=== PATIENT | male | born 1970 | race Caucasian/White ===

== ENCOUNTER 2020-12-25 22:23 | Emergency (ER) | payer OTHER, SELFPAY | END 2020-12-25 23:17 | disposition left against medical advice (07) | PROVIDERS: Emergency Provider Emergency Medicine; PCP Internal Medicine | DX: L03.039 Cellulitis of unspecified toe (principal) ==

== ENCOUNTER 2022-02-08 14:34 | Outpatient (REF) | payer OTHER, SELFPAY ==
--- NOTE | ~2022-02-08 | XR_ITS ---
EXAMINATION: XR CHEST CLINICAL INFORMATION: Cough COMPARISON: Chest CT from 05/10/2020 TECHNIQUE: 2 views of the chest were obtained. FINDINGS: The lungs are well expanded. No dense consolidation. Mild bronchial wall thickening, particularly at the left base. No edema or effusion. No pneumothorax. The cardiomediastinal silhouette is within normal limits. XR/XR chest 2V IMPRESSION: No consolidation. Bronchial wall thickening can be seen with a small airways process such as asthma or atypical/viral infection. In conjunction with the appearance on prior, this could be chronic airways disease.
[2022-02-08 14:53] LABS: MANUAL DIFF FLAG NO
[2022-02-08 15:48] LABS: Basophils Absolute Auto 0.1 X10*3/uL (0.0-0.2); Basophils Percent Auto 0.9 % (0-2); Eosinophils Absolute Auto 0.7 X10*3/uL (0.0-0.4); Eosinophils Percent Auto 9.4 % (0-4); Hematocrit 37.9 % (42.0-52.0); Hemoglobin 12.3 g/dl (14.0-18.0); Imm Gran Abs Auto 0.02 X10*3/uL (0.00-0.03); Imm Gran Pct Auto 0.3 % (0.0-0.4); Lymphocytes Absolute Auto 1.2 X10*3/uL (1.2-4.9); Lymphocytes Percent Auto 17.1 % (20-40); Mean Corpuscular HGB Conc 32.5 g/dl (31.0-36.0); Mean Corpuscular Hemoglobin 28.5 pg (27.0-33.0); Mean Corpuscular Volume 87.9 fL (80.0-98.0); Mean Platelet Volume 11.3 fL (9.4-12.4); Monocytes Absolute Auto 0.6 X10*3/uL (0.1-1.2); Monocytes Percent Auto 8.8 % (2-11); Neutrophils Absolute Auto 4.4 x10*3/uL (2.0-8.3); Neutrophils Percent Auto 63.5 % (45-73); Platelet Count 220 X10*3/uL (160-400); Red Blood Count 4.31 X10*6/uL (4.60-5.80); Red Cell Distribution Width 12.8 % (11.0-16.0); White Blood Count 6.9 X10*3/uL (4.8-10.8)
[2022-02-08 16:07] LABS: Alanine Aminotransferase 29 U/L (0-40); Albumin Level 3.9 g/dL (3.5-5.0); Alkaline Phosphatase 81 U/L (39-117); Anion Gap 15 (12-20); Aspartate Amino Transferase 44 U/L (5-37); Bilirubin Total 0.4 mg/dL (0.0-1.0); Blood Urea Nitrogen 7 mg/dL (9-16); Calcium 8.9 mg/dL (8.4-10.2); Carbon Dioxide 28 mmol/L (22-29); Chloride 95 mmol/L (96-108); Cholesterol 181 mg/dL; Estimated Glomerular Filt Rate > 60; Glucose Fasting 110 mg/dL (60-99); HDL Cholesterol 37 mg/dL; LDL Cholesterol Calculated 79 mg/dl; Potassium 3.3 mmol/L (3.3-5.1); Sodium 135 mmol/L (135-145); Total Protein 7.1 g/dL (6.5-8.0); Triglycerides 329 mg/dL
[2022-02-08 16:31] LABS: Thyroid Stimulating Hormone 12.95 uIU/mL (0.32-4.0)
== END 2022-02-08 14:35 | disposition home or self-care (01) ==
LOC: HO.XRAY 14:34
PROVIDERS: PCP Internal Medicine; Visit Provider Internal Medicine
DX: Z00.00 Encounter for general adult medical examination without abnormal findings (principal); R05.9 Cough, unspecified; E03.9 Hypothyroidism, unspecified; E11.9 Type 2 diabetes mellitus without complications
CPT/HCPCS: 36415; 71046; 80053; 80061; 84443; 85025

== ENCOUNTER 2022-12-31 15:29 | Outpatient (REF) | payer OTHER, SELFPAY ==
[2022-12-31 15:52] LABS: MANUAL DIFF FLAG NO
[2022-12-31 17:00] LABS: Basophils Absolute Auto 0.1 X10*3/uL (0.0-0.2); Basophils Percent Auto 0.5 % (0-2); Eosinophils Absolute Auto 0.3 X10*3/uL (0.0-0.4); Eosinophils Percent Auto 2.1 % (0-4); Hematocrit 44.1 % (42.0-52.0); Hemoglobin 15.1 g/dl (14.0-18.0); Imm Gran Abs Auto 0.04 X10*3/uL (0.00-0.03); Imm Gran Pct Auto 0.3 % (0.0-0.4); Lymphocytes Absolute Auto 1.6 X10*3/uL (1.2-4.9); Lymphocytes Percent Auto 13.5 % (20-40); Mean Corpuscular HGB Conc 34.2 g/dl (31.0-36.0); Mean Corpuscular Hemoglobin 29.1 pg (27.0-33.0); Mean Platelet Volume 11.7 fL (9.4-12.4); Monocytes Absolute Auto 1.1 X10*3/uL (0.1-1.2); Neutrophils Absolute Auto 8.8 x10*3/uL (2.0-8.3); Neutrophils Percent Auto 74.6 % (45-73); Platelet Count 320 X10*3/uL (160-400); Red Blood Count 5.19 X10*6/uL (4.60-5.80); Red Cell Distribution Width 12.5 % (11.0-16.0); White Blood Count 11.8 X10*3/uL (4.8-10.8)
[2022-12-31 17:39] LABS: Alanine Aminotransferase 37 U/L (0-40); Albumin Level 4.2 g/dL (3.5-5.0); Alkaline Phosphatase 80 U/L (39-117); Anion Gap 17 (12-20); Aspartate Amino Transferase 39 U/L (5-37); Bilirubin Total 0.6 mg/dL (0.0-1.0); Blood Urea Nitrogen 8 mg/dL (9-16); Calcium 9.2 mg/dL (8.4-10.2); Carbon Dioxide 23 mmol/L (22-29); Chloride 91 mmol/L (96-108); Cholesterol 219 mg/dL; Estimated Glomerular Filt Rate > 60; Glucose Fasting 117 mg/dL (60-99); HDL Cholesterol 44 mg/dL; LDL Cholesterol Calculated 139 mg/dl; Potassium 3.1 mmol/L (3.3-5.1); Sodium 128 mmol/L (135-145); Total Protein 7.5 g/dL (6.5-8.0); Triglycerides 180 mg/dL
[2022-12-31 17:48] LABS: Prostate Specific Antigen Scr 0.53 ng/mL (<0.05-4.0); Thyroid Stimulating Hormone 4.77 uIU/mL (0.32-4.0)
== END 2022-12-31 15:30 | disposition home or self-care (01) ==
LOC: HO.LAB 15:29
PROVIDERS: PCP Internal Medicine; Visit Provider Internal Medicine
DX: Z00.00 Encounter for general adult medical examination without abnormal findings (principal); E03.9 Hypothyroidism, unspecified; D64.9 Anemia, unspecified; E78.5 Hyperlipidemia, unspecified; N28.9 Disorder of kidney and ureter, unspecified
CPT/HCPCS: 36415; 80053; 80061; 84153; 84443; 85025

== ENCOUNTER 2023-01-10 23:42 | Emergency (ER) | payer OTHER, SELFPAY ==
--- NOTE | ~2023-01-10 | CT_ITS ---
EXAMINATION: CT HEAD WITHOUT CONTRAST CLINICAL INFORMATION: Frequent falls with head trauma COMPARISON: 05/10/2020 TECHNIQUE: Contiguous axial imaging was performed from the skull base to vertex without intravenous administration of contrast. This CT examination was performed using dose optimization techniques as appropriate, variously including the following: *Automated exposure control *Adjustment of mA and/or kV according to patient size (this includes techniques or standardized protocols for targeted exams where dose is matched to indication/reason for exam; i.e. extremities or head) *Use of iterative reconstruction technique DLP: 661 mGy-cm FINDINGS: There is no evidence of acute intracranial hemorrhage or territorial infarction. No abnormal mass-effect or midline shift is seen. Jay to white matter differentiation is well preserved. No extra-axial fluid collections are identified. The ventricles are normal in size. Mild volume loss is noted. The osseous structures and soft tissues are normal. The mastoid air cells and visualized portions of the paranasal sinuses are well-aerated. CT/CT head/brain wo IV con IMPRESSION: No acute intracranial pathology.
--- NOTE | ~2023-01-10 | XR_ITS ---
EXAMINATION: XR FOOT, LEFT CLINICAL INFORMATION: Left foot pain COMPARISON: None available. TECHNIQUE: AP, lateral, and oblique views of the left foot. FINDINGS: Osseous alignment is anatomic. No acute fracture is seen. Mild joint space narrowing at the first MTP joint. No significant focal soft tissue abnormality identified. XR/XR foot LT min 3V IMPRESSION: No acute findings identified.
--- NOTE | ~2023-01-10 | CT_ITS ---
CT/CT abdomen pelvis w IV con IMPRESSION: No acute findings identified in the abdomen/pelvis. EXAMINATION: CT ABDOMEN AND PELVIS WITH CONTRAST CLINICAL INFORMATION: Acute on chronic abdomen pain COMPARISON: 05/10/2020 TECHNIQUE: Multidetector volumetric images were obtained from the superior aspect of the liver through the pubic symphysis following administration 85 mL of Omnipaque 350 intravenous contrast. Sagittal and coronal reformatted images were obtained on the technologist's workstation. Oral contrast: No This CT examination was performed using dose optimization techniques as appropriate, variously including the following: *Automated exposure control *Adjustment of mA and/or kV according to patient size (this includes techniques or standardized protocols for targeted exams where dose is matched to indication/reason for exam; i.e. extremities or head) *Use of iterative reconstruction technique DLP: 921 mGy-cm FINDINGS: LUNG BASES: The visualized lung bases are unremarkable. LIVER, GALLBLADDER, AND BILIARY TREE: The liver is normal in size, shape, and attenuation. No focal hepatic lesion or biliary ductal dilatation is present. Gallbladder appears somewhat contracted. PANCREAS: Unremarkable. SPLEEN: Unremarkable. ADRENAL GLANDS: Unremarkable. KIDNEYS AND URETERS: Bilateral nephrograms are symmetric. No hydronephrosis or obstructing calculus identified. Subcentimeter cyst suspected in the lower left kidney; no follow-up recommended. BLADDER: Unremarkable. GASTROINTESTINAL TRACT: No evidence of bowel obstruction or significant wall thickening. The appendix is unremarkable. No free fluid or free air is seen. ABDOMINAL WALL: Fat-containing inguinal hernias, left larger than right. LYMPH NODES: Normal. VASCULAR: There is atherosclerotic calcification along the aorta. PELVIC VISCERA: Unremarkable. OSSEOUS STRUCTURES: Unremarkable.
--- NOTE | ~2023-01-10 | XR_ITS ---
EXAMINATION: XR CHEST CLINICAL INFORMATION: Left-sided chest pain COMPARISON: 02/08/2022 TECHNIQUE: 2 views of the chest were obtained. FINDINGS: Lung volumes are symmetric. No focal consolidation is seen. No evidence of pneumothorax, pleural effusion, or pulmonary edema. The cardiomediastinal contour is unremarkable. No acute osseous findings are seen. XR/XR chest 2V IMPRESSION: No acute cardiopulmonary findings.
[2023-01-10 23:46] VITALS: BP 135/79; PULSE 121; RESP 20; TEMP 36.3; O2SAT 98; BMI 37.9
--- NOTE | 2023-01-11 00:06 | ECG_ITS ---
Test Reason : PALPITATIONS Blood Pressure : / mmHG Vent. Rate : 098 BPM Atrial Rate : 098 BPM P-R Int : 160 ms QRS Dur : 108 ms QT Int : 390 ms P-R-T Axes : 063 042 035 degrees QTc Int : 497 ms Normal sinus rhythm Possible Left atrial enlargement ST & T wave abnormality, consider anterior ischemia Prolonged QT Abnormal ECG When compared with ECG of 09-MAY-2020 22:11, T wave inversion now evident in Anterior leads Referred By: Generic ED Physician Electronically Signed By:DI FOURNIER MD
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
[2023-01-11] MEDS: 0.9 % Sodium Chloride 1,000 ML 999 ML IV (01:10)
--- NOTE | 2023-01-11 01:20 | PC.NURSE ---
justice BOGGS per MAR collected labs with straight needle, labeled and sent to lab via tube system
[2023-01-11 01:23] LABS: MANUAL DIFF FLAG NO
[2023-01-11 01:25] LABS: Basophils Percent Auto 0.4 % (0-2); Eosinophils Absolute Auto 0.1 X10*3/uL (0.0-0.4); Eosinophils Percent Auto 0.9 % (0-4); Hematocrit 42.7 % (42.0-52.0); Hemoglobin 14.3 g/dl (14.0-18.0); Imm Gran Abs Auto 0.02 X10*3/uL (0.00-0.03); Imm Gran Pct Auto 0.2 % (0.0-0.4); Lymphocytes Absolute Auto 1.3 X10*3/uL (1.2-4.9); Lymphocytes Percent Auto 15.2 % (20-40); Mean Corpuscular HGB Conc 33.5 g/dl (31.0-36.0); Mean Corpuscular Hemoglobin 29.2 pg (27.0-33.0); Mean Corpuscular Volume 87.3 fL (80.0-98.0); Mean Platelet Volume 10.9 fL (9.4-12.4); Monocytes Absolute Auto 0.7 X10*3/uL (0.1-1.2); Neutrophils Absolute Auto 6.2 x10*3/uL (2.0-8.3); Neutrophils Percent Auto 75.3 % (45-73); Platelet Count 244 X10*3/uL (160-400); Red Blood Count 4.89 X10*6/uL (4.60-5.80); Red Cell Distribution Width 12.5 % (11.0-16.0); White Blood Count 8.2 X10*3/uL (4.8-10.8)
[2023-01-11 01:38] LABS: Anion Gap 14 (12-20); Blood Urea Nitrogen 11 mg/dL (9-16); Calcium 8.8 mg/dL (8.4-10.2); Carbon Dioxide 27 mmol/L (22-29); Chloride 98 mmol/L (96-108); Creatinine Clr Calc Pharmacy 122.4; Estimated Glomerular Filt Rate > 60; Glucose Random 95 mg/dL (60-115); Potassium 3.2 mmol/L (3.3-5.1); Sodium 136 mmol/L (135-145)
[2023-01-11 01:44] LABS: Troponin-I High Sensitivity 8.7 ng/L (<3.5-35.0)
[2023-01-11 02:00] LABS: TSH reflex Free T4 4.71 uIU/mL (0.32-4.0)
[2023-01-11 02:03] LABS: Alanine Aminotransferase 21 U/L (0-40); Albumin Level 3.8 g/dL (3.5-5.0); Alkaline Phosphatase 68 U/L (39-117); Aspartate Amino Transferase 19 U/L (5-37); Bilirubin Direct 0.2 mg/dL (0.0-0.5); Bilirubin Total 0.6 mg/dL (0.0-1.0); Magnesium 1.4 mg/dL (1.6-2.6); Phosphorus 2.3 mg/dL (2.7-4.5); Total Protein 6.6 g/dL (6.5-8.0)
[2023-01-11] MEDS: iohexoL 350 MG/ML 100 ML INFUS..BTL 85 ML IV (02:16)
[2023-01-11] MEDS: Magnesium Sulfate/D5W 1 GM/100 ML PIGGYBACK IV (02:33)
[2023-01-11] MEDS: Potassium Chloride Packet 20 MEQ PACKET 40 MEQ PO (02:34)
--- NOTE | 2023-01-11 04:12 | ECG_ITS ---
Test Reason : ARRHYTMIA Blood Pressure : / mmHG Vent. Rate : 099 BPM Atrial Rate : 099 BPM P-R Int : 162 ms QRS Dur : 088 ms QT Int : 382 ms P-R-T Axes : 063 034 017 degrees QTc Int : 490 ms Normal sinus rhythm Possible Left atrial enlargement Nonspecific ST and T wave abnormality Prolonged QT Abnormal ECG When compared with ECG of 11-JAN-2023 00:23, No significant change was found Referred By: Antoine Novoa Electronically Signed By:DI FOURNIER MD
[2023-01-11 04:24] VITALS: BP 144/82; PULSE 98; RESP 12; TEMP 36.9; O2SAT 95
[2023-01-11 05:22] LABS: Troponin-I High Sensitivity 9.2 ng/L (<3.5-35.0)
== END 2023-01-11 06:14 | disposition home or self-care (01) ==
PROVIDERS: Emergency Medicine; Emergency Provider Emergency Medicine Emergency Medical Services
DX: R53.1 Weakness (principal); R29.6 Repeated falls; E86.0 Dehydration; E83.42 Hypomagnesemia; E87.6 Hypokalemia; M79.672 Pain in left foot; R26.89 Other abnormalities of gait and mobility; R10.9 Unspecified abdominal pain; I10 Essential (primary) hypertension; F10.20 Alcohol dependence, uncomplicated; E66.9 Obesity, unspecified; Z68.37 Body mass index [BMI] 37.0-37.9, adult; Z79.899 Other long term (current) drug therapy; Z79.02 Long term (current) use of antithrombotics/antiplatelets
CPT/HCPCS: 36415; 70450; 71046; 73630; 74177; 80048; 80076; 83735; 84100; 84439; 84443; 84484; 85025; 93005; 96361; 96365; 99284; 99285; J3475; Q9967

== ENCOUNTER 2023-01-15 14:18 | Outpatient (REF) | payer OTHER, SELFPAY ==
[2023-01-15 16:22] LABS: Anion Gap 12 (12-20); Blood Urea Nitrogen 10 mg/dL (9-16); Calcium 9.2 mg/dL (8.4-10.2); Carbon Dioxide 25 mmol/L (22-29); Chloride 102 mmol/L (96-108); Estimated Glomerular Filt Rate > 60; Glucose Random 93 mg/dL (60-115); Magnesium 1.7 mg/dL (1.6-2.6); Potassium 4.3 mmol/L (3.3-5.1); Sodium 135 mmol/L (135-145)
[2023-01-15 16:34] LABS: Thyroid Stimulating Hormone 3.26 uIU/mL (0.32-4.0)
== END 2023-01-15 14:19 | disposition home or self-care (01) ==
LOC: HO.LAB 14:18
PROVIDERS: PCP Internal Medicine; Visit Provider Internal Medicine
DX: I10 Essential (primary) hypertension (principal); E03.9 Hypothyroidism, unspecified
CPT/HCPCS: 36415; 80048; 83735; 84443

== ENCOUNTER 2023-01-25 23:41 | Emergency (ER) | payer OTHER, SELFPAY ==
--- NOTE | 2023-01-25 | ECG_ITS ---
Test Reason : CHEST PAIN Blood Pressure : / mmHG Vent. Rate : 102 BPM Atrial Rate : 102 BPM P-R Int : 140 ms QRS Dur : 100 ms QT Int : 366 ms P-R-T Axes : 048 022 004 degrees QTc Int : [address] & T wave abnormality, consider anterior ischemia Abnormal ECG When compared with ECG of 11-JAN-2023 04:17, No significant change was found Referred By: Generic ED Physician Electronically Signed By:Skinny Santiago
--- NOTE | ~2023-01-25 | XR_ITS ---
EXAMINATION: XR CHEST CLINICAL INFORMATION: Chest pain COMPARISON: Multiple priors with last chest x-ray of 01/11/2023 TECHNIQUE: 2 views of the chest were obtained. FINDINGS: Cardiomediastinal silhouette is normal. No abnormal tracheal deviation. The lungs are symmetrically well expanded. No focal consolidation, changes of congestion or pleural effusions. No pneumothorax. Regional skeleton is intact. Visualized upper abdomen is unremarkable. XR/XR chest 2V IMPRESSION: No radiographic evidence of hernia. No acute pulmonary process.
[2023-01-25 23:42] VITALS: BP 145/83; PULSE 108; RESP 20; TEMP 36.3; O2SAT 97; BMI 35.7
[2023-01-26 00:03] LABS: MANUAL DIFF FLAG NO
[2023-01-26 00:04] LABS: Basophils Absolute Auto 0.1 X10*3/uL (0.0-0.2); Basophils Percent Auto 0.5 % (0-2); Eosinophils Absolute Auto 0.1 X10*3/uL (0.0-0.4); Eosinophils Percent Auto 1.2 % (0-4); Hematocrit 41.9 % (42.0-52.0); Hemoglobin 14.1 g/dl (14.0-18.0); Imm Gran Abs Auto 0.03 X10*3/uL (0.00-0.03); Imm Gran Pct Auto 0.3 % (0.0-0.4); Lymphocytes Percent Auto 18.7 % (20-40); Mean Corpuscular HGB Conc 33.7 g/dl (31.0-36.0); Mean Corpuscular Hemoglobin 28.7 pg (27.0-33.0); Mean Corpuscular Volume 85.2 fL (80.0-98.0); Mean Platelet Volume 11.9 fL (9.4-12.4); Monocytes Absolute Auto 0.9 X10*3/uL (0.1-1.2); Monocytes Percent Auto 8.6 % (2-11); Neutrophils Absolute Auto 7.4 x10*3/uL (2.0-8.3); Neutrophils Percent Auto 70.7 % (45-73); Platelet Count 287 X10*3/uL (160-400); Red Blood Count 4.92 X10*6/uL (4.60-5.80); Red Cell Distribution Width 13.2 % (11.0-16.0); White Blood Count 10.4 X10*3/uL (4.8-10.8)
--- NOTE | 2023-01-26 00:16 | ED.CHESTPAIN ---
HPI - Chest Pain General Chief Complaint: Chest Pain Stated Complaint: CP Time Seen by Provider: 01/26/23 00:02 Source: patient Mode of arrival: ambulatory Limitations: no limitations History of Present Illness HPI narrative: Patient comes to the emergency room complaining of chest pain. Patient states that approximately 2 hours ago, patient started having chest discomfort. Patient describes the pain as hit the left side of his chest cramping. Patient states that he also felt shooting pain going from his neck down to his arm. Patient states that this time he has no chest pain or arm pain. The discomfort lasted for about 10 minutes and self-resolved. Patient denies any shortness of breath, no chest pain at this time, no abdominal pain. Related Data Previous Rx's Medication Instructions Recorded fluticasone propionate 50 1 spray intranasal DAILY #9.9 mL 01/31/22 mcg/actuation nasal spray,suspension chlorthalidone 25 mg tablet 25 mg PO DAILY #90 tabs 04/01/22 fluoxetine 40 mg capsule 40 mg PO QAM #90 caps 04/01/22 allopurinol 300 mg tablet 300 mg PO DAILY #90 tabs 06/14/22 fenofibrate 160 mg tablet 160 mg PO DAILY #90 tabs 06/14/22 simvastatin 40 mg tablet 40 mg PO DAILY #90 tabs 06/14/22 metoprolol tartrate 50 mg tablet 50 mg PO BID #60 tabs 09/17/22 clonazepam 1 mg tablet 1 mg PO TID 30 days #90 tabs 09/24/22 ibuprofen 800 mg tablet 800 mg PO TID #90 tabs 09/24/22 quetiapine 100 mg tablet 100 mg PO BEDTIME #90 tabs 10/11/22 levothyroxine 125 mcg tablet 125 mcg PO DAILY #90 tabs 10/17/22 multivitamin 1 tab PO DAILY #30 tabs 01/11/23 ondansetron 4 mg disintegrating 4 mg PO Q6-8H PRN nausea and 01/11/23 tablet vomiting #14 tabs potassium chloride 20 mEq 10 meq PO DAILY #10 tabs 01/11/23 tablet,extended release(part/cryst) thiamine HCl (vitamin B1) 500 mg 500 mg PO DAILY #30 tabs 01/11/23 tablet albuterol sulfate 90 mcg/actuation 2 puff PO Q4-6H PRN for muscle 01/15/23 aerosol inhaler (Ventolin HFA) spasm #18 ea tiotropium bromide 2.5 2 puff inhalation DAILY #4 grams 01/15/23 mcg/actuation mist for inhalation (Spiriva Respimat) omeprazole 20 mg capsule,delayed 20 mg PO DAILY #90 caps 01/17/23 release sennosides 8.6 mg tablet (senna) 17.2 mg PO BEDTIME #90 tabs 01/17/23 trazodone 100 mg tablet 100 mg PO BEDTIME PRN sleep #30 01/17/23 tabs Allergies Allergy/AdvReac Type Severity Reaction Status Date / Time Fruit skins Allergy Unknown Unknown Uncoded 01/25/23 23:42 Review of Systems Review of Systems: Constitutional : No Weight loss, No Fever, No Chills, No Night Sweats, No Fatigue, No Malaise ENT/Mouth : No Hearing loss, No Ear Pain, No Nasal Congestion, No Sinus Pain, No Hoarseness, No sore throat, No Rhinorrhea, No Swallowing Difficulty Eyes: No Eye Pain, No Swelling, No Redness, No Foreign Body, No Discharge, No Vision Changes Cardiovascular : Complaining of ?chest cramping? that self-resolved, No SOB, No Dyspnea on Exertion, No Orthopnea, No Edema, No Palpitations Respiratory : No Cough, No Sputum, No Wheezing, No Smoke Exposure, No Dyspnea Gastrointestinal : No Nausea, No Vomiting, No Diarrhea, No Constipation, No abdominal Pain, No Hematochezia, No Melena Genitourinary : no irregular bleeding, No Dysuria, No Urinary Frequency, No Hematuria, No Urinary Incontinence, No Urgency, No Flank Pain, No Urinary Flow Changes, No Hesitancy Musculoskeletal : No joint pain, No Myalgias, No Joint Swelling Skin : No Skin Lesions, No rash Neuro : No Weakness, No Numbness, No Paresthesias, No Loss of Consciousness, No Dizziness, No Headache Psych : No Anxiety/Panic, No Depression, No SI/HI/AH/VH, No Social Issues, Heme/Lymph: No Bruising, No Bleeding,No Lymphadenopathy Endocrine : No Polyuria, No Polydipsia, No Temperature Intolerance PMF Past Medical History Medical History Hypertension Obesity Surgical History No pertinent past surgical history Family History Family History Father No problems noted. Mother No problems noted. Social History Social History Housing: House Alcohol intake: former Patient Tobacco Use Status: Never used Tobacco Smoked in Last 30 Days: No e-Cigarette/Vaping Use: Never Used Second Hand Smoke Exposure: No Use of substances other than those prescribed or required for medical reasons: No Advance Directives: No Advance Directives Information Provided: No service: No Current occupational status: employed Current occupational exposures/hazards: No Cognitive needs: No Hearing needs: No Vision needs: No Physical Exam Vital Signs: Vital Signs: Last Vital Signs Temp 97.4 F 01/25/23 23:42 Pulse 92 01/26/23 00:17 Resp 19 01/26/23 00:17 BP 135/100 H 01/26/23 00:17 Pulse Ox 96 01/26/23 00:17 O2 Del Method Room Air 01/26/23 00:17 BMI result Body Mass Index 35.7 Const: Other: Appearance: Alert. Oriented X3. No acute distress. Eyes: Pupils equal, round and reactive to light. ENT: Pharynx normal. Neck: Normal inspection. Neck supple. No lymph nodes noted. No crepitus CVS: Normal heart rate and rhythm. Pulses normal. Normal S1 and S2 Respiratory: No respiratory distress. Breath sounds normal. No Wheezing. No rales Abdomen: Soft and nontender. No rigidity. No distention. Skin: Skin warm and dry. Normal skin color. Normal skin turgor. 1 cm laceration to the dorsal aspect of the thumb that occurred earlier today accidentally Extremities: Trace pitting edema bilaterally, chronic venous stasis,. No Lacerations. No Rash Neuro: Oriented X 3. No motor deficit. No sensory deficit. Moving all extremities. No slurred speech. CN 2 through 12 grossly intact Psych: calm, cooperative, normal affect Course Course Course Narrative: -patient declines stitches for the laceration that he had earlier today -of patient's labs pending -patient aware that we will repeat troponin in 3 hours Medical Decision Making Medical Decision Making MDM Narrative: -interpretation of EKG: Sinus rhythm, tachycardia, heart rate 102, no ST segment depression or elevation, nonspecific T-wave inversion in V2 V3, old, same in EKG from 01/11/2023, QTC 477 -troponin 1 and 2 are both negative. -patient remains asymptomatic. Lab Data 01/25/23 23:56 01/25/23 23:56 Labs: Lab Results 01/25/23 01/25/23 01/25/23 Range/Units 23:56 23:56 23:56 WBC 10.4 (4.8-10.8) X10*3/uL RBC 4.92 (4.60-5.80) X10*6/uL Hgb 14.1 (14.0-18.0) g/dl Hct 41.9 L (42.0-52.0) % MCV 85.2 (80.0-98.0) fL MCH 28.7 (27.0-33.0) pg MCHC 33.7 (31.0-36.0) g/dl RDW 13.2 (11.0-16.0) % Plt Count 287 (160-400) X10*3/uL MPV 11.9 (9.4-12.4) fL Immature Gran % (Auto) 0.3 (0.0-0.4) % Neut % (Auto) 70.7 (45-73) % Lymph % (Auto) 18.7 L (20-40) % [place] % (Auto) 8.6 (2-11) % Eos % (Auto) 1.2 (0-4) % Baso % (Auto) 0.5 (0-2) % Lymph # (Auto) 2.0 (1.2-4.9) X10*3/uL [place] # (Auto) 0.9 (0.1-1.2) X10*3/uL Eos # (Auto) 0.1 (0.0-0.4) X10*3/uL Baso # (Auto) 0.1 (0.0-0.2) X10*3/uL Abs Immat Gran (auto) 0.03 (0.00-0.03) X10*3/uL Absolute Neuts (auto) 7.4 (2.0-8.3) x10*3/uL Absolute Nucleated RBC 0.000 (0.0-0.012) X10*3/uL Nucleated RBC % (auto) 0.0 (0.0-0.2) /100WBC Sodium 135 (135-145) mmol/L Potassium 3.3 D (3.3-5.1) mmol/L Chloride 100 (96-108) mmol/L Carbon Dioxide 22 (22-29) mmol/L Anion Gap 16 (12-20) BUN 16 (9-16) mg/dL Creatinine 0.84 (0.5-1.4) mg/dL Estim Creat Clear Calc 123.1 Estimated GFR > 60 Random Glucose 102 (60-115) mg/dL Calcium 9.6 (8.4-10.2) mg/dL Magnesium 1.6 (1.6-2.6) mg/dL Troponin I High Sens < 2.7 D (<3.5-35.0) ng/L Lipase 42 (8-78) U/L / Range/Units 03:05 WBC (4.8-10.8) X10*3/uL RBC (4.60-5.80) X10*6/uL Hgb (14.0-18.0) g/dl Hct (42.0-52.0) % MCV (80.0-98.0) fL MCH (27.0-33.0) pg MCHC (31.0-36.0) g/dl RDW (11.0-16.0) % Plt Count (160-400) X10*3/uL MPV (9.4-12.4) fL Immature Gran % (Auto) (0.0-0.4) % Neut % (Auto) (45-73) % Lymph % (Auto) (20-40) % [place] % (Auto) (2-11) % Eos % (Auto) (0-4) % Baso % (Auto) (0-2) % Lymph # (Auto) (1.2-4.9) X10*3/uL [place] # (Auto) (0.1-1.2) X10*3/uL Eos # (Auto) (0.0-0.4) X10*3/uL Baso # (Auto) (0.0-0.2) X10*3/uL Abs Immat Gran (auto) (0.00-0.03) X10*3/uL Absolute Neuts (auto) (2.0-8.3) x10*3/uL Absolute Nucleated RBC (0.0-0.012) X10*3/uL Nucleated RBC % (auto) (0.0-0.2) /100WBC Sodium (135-145) mmol/L Potassium (3.3-5.1) mmol/L Chloride (96-108) mmol/L Carbon Dioxide (22-29) mmol/L Anion Gap (12-20) BUN (9-16) mg/dL Creatinine (0.5-1.4) mg/dL Estim Creat Clear Calc Estimated GFR Random Glucose (60-115) mg/dL Calcium (8.4-10.2) mg/dL Magnesium (1.6-2.6) mg/dL Troponin I High Sens < 2.7 (<3.5-35.0) ng/L Lipase (8-78) U/L Discharge Plan Discharge Clinical Impression: Atypical chest pain Prescriptions: No Action fluticasone propionate 50 mcg/actuation spray,suspension 1 spray intranasal DAILY Qty: 9.9 8RF Rx Instructions: administer into each nostril chlorthalidone 25 mg tablet 25 mg PO DAILY Qty: 90 7RF fluoxetine 40 mg capsule 40 mg PO QAM Qty: 90 7RF allopurinol 300 mg tablet 300 mg PO DAILY Qty: 90 3RF simvastatin 40 mg tablet 40 mg PO DAILY Qty: 90 6RF fenofibrate 160 mg tablet 160 mg PO DAILY Qty: 90 7RF metoprolol tartrate 50 mg tablet 50 mg PO BID Qty: 60 8RF clonazepam 1 mg tablet 1 mg PO TID 30 Days Qty: 90 5RF ibuprofen 800 mg tablet 800 mg PO TID Qty: 90 8RF quetiapine 100 mg tablet 100 mg PO BEDTIME Qty: 90 7RF levothyroxine 125 mcg tablet 125 mcg PO DAILY Qty: 90 2RF sennosides [senna] 8.6 mg tablet 17.2 mg PO BEDTIME Qty: 90 2RF omeprazole 20 mg capsule,delayed release(DR/EC) 20 mg PO DAILY Qty: 90 0RF trazodone 100 mg tablet 100 mg PO BEDTIME PRN (Reason: sleep) Qty: 30 2RF ondansetron 4 mg tablet,disintegrating 4 mg PO Q6-8H PRN (Reason: nausea and vomiting) Qty: 14 0RF thiamine HCl (vitamin B1) 500 mg tablet 500 mg PO DAILY Qty: 30 0RF multivitamin Tablet 1 tab PO DAILY Qty: 30 0RF potassium chloride 20 mEq tablet,ER particles/crystals 10 meq PO DAILY Qty: 10 0RF Spiriva Respimat 2.5 mcg/actuation mist 2 puff inhalation DAILY Qty: 4 7RF albuterol sulfate [Ventolin HFA] 90 mcg/actuation HFA aerosol inhaler 2 puff PO Q4-6H PRN (Reason: for muscle spasm) Qty: 18 3RF
[2023-01-26 00:17] VITALS: BP 135/100; PULSE 90; PULSE 92; RESP 19; O2SAT 96
[2023-01-26 00:28] LABS: Anion Gap 16 (12-20); Blood Urea Nitrogen 16 mg/dL (9-16); Calcium 9.6 mg/dL (8.4-10.2); Carbon Dioxide 22 mmol/L (22-29); Chloride 100 mmol/L (96-108); Creatinine Clr Calc Pharmacy 123.1; Estimated Glomerular Filt Rate > 60; Glucose Random 102 mg/dL (60-115); Lipase 42 U/L (8-78); Magnesium 1.6 mg/dL (1.6-2.6); Potassium 3.3 mmol/L (3.3-5.1); Sodium 135 mmol/L (135-145)
--- NOTE | 2023-01-26 00:28 | PC.NURSE ---
Pt brought back from waiting room, placed on shelter monitor. Pt endorses 3/10 cramping pain in the chest with shooting pain to left arm. Pt reports the pain is less than before though. 20g IV started in LAC, all labds and EKG completed in triage. Pt resting now in no apparent distress. Call markham placed at patient side, blanket provided, awaiting lab results at this time
[2023-01-26 00:32] LABS: Troponin-I High Sensitivity < 2.7 ng/L (<3.5-35.0)
--- NOTE | 2023-01-26 01:11 | PC.NURSE ---
pt sleeping at this time, respirations even and unlabored, skin pwd, no apparent distress. remains normal sinus on the monitor in the 80s. Continue plan of care for repeat lab draw at 0300
[2023-01-26 02:01] VITALS: BP 123/65; PULSE 80; RESP 16; TEMP 36.5; O2SAT 94
--- NOTE | 2023-01-26 03:05 | PC.NURSE ---
Report received from Marilyn OLSEN. Repeat troponin collected and sent to lab.
[2023-01-26 03:40] LABS: Troponin-I High Sensitivity < 2.7 ng/L (<3.5-35.0)
== END 2023-01-26 04:13 | disposition home or self-care (01) ==
PROVIDERS: Emergency Provider Emergency Medicine
DX: R07.89 Other chest pain (principal); M54.2 Cervicalgia; Z79.899 Other long term (current) drug therapy
CPT/HCPCS: 36415; 71046; 80048; 83690; 83735; 84484; 85025; 93005; 99284; 99285

== ENCOUNTER 2023-02-02 00:14 | Inpatient (IN) | payer OTHER, SELFPAY ==
[2023-02-02] VITALS (11 sets, daily range): BP systolic 88–158; BP diastolic 49–90; PULSE 79–94; RESP 10–20; TEMP 36.3–37.1; O2SAT 93–97; BMI 36.5; BMI 37.9
--- NOTE | ~2023-02-02 | XR_ITS ---
EXAMINATION: XR RIBS, LEFT CLINICAL INFORMATION: Trauma COMPARISON: 01/26/2023 TECHNIQUE: PA view of the chest 3 views of the left ribs were obtained. FINDINGS: Streaky opacity at left lung base, perhaps slightly more prominent than prior exams. No consolidation, pneumothorax, or pleural effusion. The cardiomediastinal silhouette and pulmonary vasculature are normal. Osseous structures are unremarkable. Ribs are intact. No fractures are identified. XR/XR ribs LT min 3V w [id number] IMPRESSION: * No rib fractures. * Streaky opacity at left lung base favors subsegmental atelectasis and/or pleural parenchymal scarring.
--- NOTE | ~2023-02-02 | CT_ITS ---
EXAMINATION: NONCONTRAST HEAD CT NONCONTRAST MAXILLOFACIAL CT NONCONTRAST CERVICAL SPINE CT INDICATION INFORMATION: Trauma COMPARISON: 01/11/2023 TECHNIQUE: Separate noncontrast CT examinations of the head, maxillofacial bones, and cervical spine were performed. Coronal and sagittal images were created for each examination at the technologist workstation. This CT examination was performed using dose optimization techniques as appropriate, variously including the following: *Automated exposure control *Adjustment of mA and/or kV according to patient size (this includes techniques or standardized protocols for targeted exams where dose is matched to indication/reason for exam; i.e. extremities or head) *Use of iterative reconstruction technique DLP: 1544 mGy-cm FINDINGS: Head: There is no evidence of acute intracranial hemorrhage or territorial infarction. No abnormal mass effect or midline shift is seen. Jay to white matter differentiation is well preserved. No extra-axial fluid collections are identified. No hydrocephalus. No significant volume loss. There is no abnormal attenuation within the brain parenchyma. No acute soft tissue abnormality. No calvarial fracture. The mastoid air cells are well aerated. Maxillofacial: No acute maxillofacial fractures are seen. The pterygoid plates are intact. The lamina papyracea are intact. The zygomatic arches are intact. The orbital rims are intact. Mandible and temporomandibular joints are intact. The frontal, maxillary, ethmoid, and sphenoid sinuses are well aerated. The uncinate process is normal bilaterally. The infundibula and middle meati are patent. Chronic leftward deviation of the osseous nasal septum. The orbits demonstrate a normal appearance bilaterally. The globes are intact, and there are no suspicious findings to suggest retrobulbar hemorrhage. Soft tissues unremarkable. Cervical spine: There is anatomic alignment of the vertebral bodies and posterior elements. The atlantoaxial and atlantooccipital articulations are intact. Vertebral body heights and intervertebral disc spaces are maintained. No evidence of acute fracture. No prevertebral soft tissue swelling. Imaged lungs are clear. The thyroid gland is unremarkable. CT/CT cervical spine wo IV con IMPRESSION: 1. No acute intracranial findings. 2. No acute maxillofacial fracture. 3. No acute fracture or malalignment of the cervical spine.
--- NOTE | 2023-02-02 00:44 | ECG_ITS ---
Test Reason : SYNCOPE Blood Pressure : / mmHG Vent. Rate : 080 BPM Atrial Rate : 080 BPM P-R Int : 146 ms QRS Dur : 104 ms QT Int : 454 ms P-R-T Axes : 057 046 041 degrees QTc Int : 523 ms Normal sinus rhythm Nonspecific ST and T wave abnormality Abnormal ECG When compared with ECG of 25-JAN-2023 23:44, Nonspecific T wave abnormality has replaced inverted T waves in Inferior leads T wave inversion less evident in Anterior leads QT has lengthened Referred By: Jeffrey Diaz Electronically Signed By:SARAH MOHAMUD
--- NOTE | 2023-02-02 01:00 | ED.GENADULT ---
HPI - General Adult General Chief complaint: Fall Stated complaint: Fall Time Seen by Provider: 02/02/23 00:28 Source: patient, RN notes reviewed and old records reviewed Mode of arrival: wheelchair Limitations: no limitations History of Present Illness HPI narrative: 53-year-old male with past medical history significant for bipolar disorder, depression, alcoholism, hypothyroidism, hypertension presents for evaluation of a fall Patient reports that about 22 hours prior to evaluation he had a fall while going to the bathroom the middle the night He reports around 2:00 a.m. on the morning of 02/01/2023, the patient woke up to go to the bathroom He states that the next thing he remembers is waking up on the bathroom floor. He is unclear how long he was on the ground for waking up He has pain to the right side of his face and jaw He reports left-sided rib pain Patient complains of right-sided neck pain and headache He denies any abdominal pain nausea low body Patient states that he slept all day yesterday and did not get up until 5:00 p.m. He reports feeling dizziness and unsteadiness on his feet The patient reports that he was here few days ago for chest pain was ultimately discharged home. He was also here a few weeks ago for ?low potassium and low magnesium. ? He reports that he is due to have a surgery to his ?intestines to sure everything up and fix a hernia in a couple of weeks. ? Patient reports that he has been sober from alcohol since December 15 of this year He does state that he has been ?feeling off balance at night since thet added trazodone a few weeks ago. ? Related Data Previous Rx's Medication Instructions Recorded fluticasone propionate 50 1 spray intranasal DAILY #9.9 mL 01/31/22 mcg/actuation nasal spray,suspension chlorthalidone 25 mg tablet 25 mg PO DAILY #90 tabs 04/01/22 fluoxetine 40 mg capsule 40 mg PO QAM #90 caps 04/01/22 allopurinol 300 mg tablet 300 mg PO DAILY #90 tabs 06/14/22 fenofibrate 160 mg tablet 160 mg PO DAILY #90 tabs 06/14/22 simvastatin 40 mg tablet 40 mg PO DAILY #90 tabs 06/14/22 metoprolol tartrate 50 mg tablet 50 mg PO BID #60 tabs 09/17/22 clonazepam 1 mg tablet 1 mg PO TID 30 days #90 tabs 09/24/22 ibuprofen 800 mg tablet 800 mg PO TID #90 tabs 09/24/22 quetiapine 100 mg tablet 100 mg PO BEDTIME #90 tabs 10/11/22 levothyroxine 125 mcg tablet 125 mcg PO DAILY #90 tabs 10/17/22 multivitamin 1 tab PO DAILY #30 tabs 01/11/23 ondansetron 4 mg disintegrating 4 mg PO Q6-8H PRN nausea and 01/11/23 tablet vomiting #14 tabs potassium chloride 20 mEq 10 meq PO DAILY #10 tabs 01/11/23 tablet,extended release(part/cryst) thiamine HCl (vitamin B1) 500 mg 500 mg PO DAILY #30 tabs 01/11/23 tablet albuterol sulfate 90 mcg/actuation 2 puff PO Q4-6H PRN for muscle 01/15/23 aerosol inhaler (Ventolin HFA) spasm #18 ea tiotropium bromide 2.5 2 puff inhalation DAILY #4 grams 01/15/23 mcg/actuation mist for inhalation (Spiriva Respimat) omeprazole 20 mg capsule,delayed 20 mg PO DAILY #90 caps 01/17/23 release sennosides 8.6 mg tablet (senna) 17.2 mg PO BEDTIME #90 tabs 01/17/23 trazodone 100 mg tablet 100 mg PO BEDTIME PRN sleep #30 01/17/23 tabs Allergies Allergy/AdvReac Type Severity Reaction Status Date / Time Fruit skins Allergy Unknown Unknown Uncoded 01/25/23 23:42 Review of Systems Constitutional: Constitutional: Denies body ache(s), Denies chills, Reports fatigue, Denies fever(s), Reports frequent falls, Reports headache(s), Reports lethargy, Reports malaise and Reports weight loss Eyes: Eyes: Denies blurry vision ENT: Reports dizziness, Reports facial pain, Reports headache(s) and Reports mouth pain Cardiovascular: Cardiovascular: Reports chest pain (Left chest wall pain), Reports syncope and Reports dyspnea Respiratory: Respiratory: Denies chest congestion, Denies cough, Denies pain with cough and Reports dyspnea Gastrointestinal: Gastrointestinal: Denies abdominal pain, Denies nausea and Denies vomiting Musculoskeletal: Musculoskeletal: Denies back pain and Reports arthralgias Neurologic: Reports dizziness, Reports syncope, Reports frequent falls and Reports headache(s) Endocrine: Endocrine: Reports fatigue PMFSH Past Medical History Medical History Hypertension Obesity Surgical History No pertinent past surgical history Family History Family History Father No problems noted. Mother No problems noted. Social History Social History Housing: House Alcohol intake: former Patient Tobacco Use Status: Never used Tobacco Smoked in Last 30 Days: No e-Cigarette/Vaping Use: Never Used Second Hand Smoke Exposure: No Use of substances other than those prescribed or required for medical reasons: No Advance Directives: No Advance Directives Information Provided: Yes service: No Current occupational status: employed Current occupational exposures/hazards: No Cognitive needs: No Hearing needs: No Vision needs: No Physical Exam ED Vital Signs: Vital Signs - 24 hr 02/02/23 00:16 02/02/23 00:35 02/02/23 02:10 Temperature 98.7 F 98 F Pulse Rate 83 85 80 Respiratory Rate 16 10 L Blood Pressure 88/61 L 100/49 L 125/90 H Pulse Oximetry 95 95 Oxygen Delivery Method Room Air Room Air BMI result Body Mass Index 36.5 Const General: healthy appearing, comfortable, no acute distress, alert and awake Nutritional Appearance: well nourished Orientation/consciousness: patient oriented x3 HENMT Other: Large area of ecchymosis/erythema with tenderness to right side of face over the zygomatic arch and maxillary bone. Eyes Eyelids: Yes eyelids normal Conjunctivae: conjunctivae normal Sclerae: sclerae normal Corneas: corneas normal Pupils: Equal, round and reactive pupils present EOM: EOMs intact bilaterally Neck Other: Right lateral neck tenderness without vertebral tenderness Neck: Yes full ROM Chest Chest palpation & inspection: normal inspection of the chest and no crepitus Resp Effort & Inspection: normal respiratory effort, able to speak in complete sentences, no audible wheezes and not labored Auscultation: clear to auscultation bilaterally Cardio Rate: regular rate Rhythm: regular rhythm GI Inspection: No distended, Yes Abdominal panniculus present and Yes obesity Palpation (GI): Soft to palpation, not firm, nontender, no guarding and not rigid Auscultation: normoactive bowel sounds Skin Other: Multiple areas of ecchymoses to the bilateral lower extremities to just above the knees. Some chronic discoloration to the medial aspect the lower extremities bilaterally General skin exam: dry skin, ecchymosis, no erythema and no eschars Neuro General: patient oriented x3 Cranial nerves: Yes CN's II-XII intact bilaterally, Yes Equal, round and reactive pupils present and Yes Bilaterally intact EOM present Cognition (Neuro): normal cognition Extrem Other: Moving all extremities well without any obvious deformities Course Reevaluation(s) Reevaluation #1: Received call from the lab, the patient's troponin was elevated at 122, he is not having chest pain, will repeat a 3 hour troponin level. [place] [address]59. The patient will be admitted to medical service. He is receiving a 2 L of IV fluid, UA is still pending. Will get a bladder scan and straight catheter if necessary. Time: 02:10 Medications Administered Discontinued Medications Generic Name Dose Route Start Last Admin Trade Name Freq PRN Reason Stop Dose Admin Sodium Chloride 1,000 mls @ 999 mls/hr 02/02/23 00:45 02/02/23 01:26 Ns IV 02/02/23 01:45 999 mls/hr .Q1H1M [facility] Administration Medical Decision Making Medical Decision Making [facility] Narrative: 53-year-old male presents for evaluation of a reported syncopal episode that happened approximately 22 hours prior to arrival. He is mildly hypertensive on arrival. We will treat with IV fluids it obtain orthostatic vital signs. Will get an EKG, check labs including electrolytes and troponin. With a CT scan of brain, cervical spine and facial bones. Good chest x-ray with left ribs. No obvious rib fractures on exam. Labs are pending this time. Differential Diagnosis Orthostasis Dehydration Syncope Cardiac arrhythmia Rhabdomyolysis Facial fracture Lab Data [facility] Lab Attestation statement: I reviewed the patient's lab results. Critical troponin, critical CPK, mild transaminitis 02/02/23 01:25 02/02/23 01:25 Labs: Lab Results 02/02/23 02/02/23 02/02/23 Range/Units 01:25 01:25 01:25 WBC 14.8 H (4.8-10.8) X10*3/uL RBC 5.28 (4.60-5.80) X10*6/uL Hgb 15.4 (14.0-18.0) g/dl Hct 46.0 (42.0-52.0) % MCV 87.1 (80.0-98.0) fL MCH 29.2 (27.0-33.0) pg MCHC 33.5 (31.0-36.0) g/dl RDW 12.8 (11.0-16.0) % Plt Count 275 (160-400) X10*3/uL MPV 12.1 (9.4-12.4) fL Immature Gran % (Auto) Cancelled Neut % (Auto) Cancelled Lymph % (Auto) Cancelled [place] % (Auto) Cancelled Eos % (Auto) Cancelled Baso % (Auto) Cancelled Lymph # (Auto) Cancelled [place] # (Auto) Cancelled Eos # (Auto) Cancelled Baso # (Auto) Cancelled Abs Immat Gran (auto) Cancelled Absolute Neuts (auto) Cancelled Absolute Nucleated RBC 0.000 (0.0-0.012) X10*3/uL Nucleated RBC % (auto) 0.0 (0.0-0.2) /100WBC Neutrophils % (Manual) 88 H (45-73) % Band Neutrophils % 1 L (3-5) % Lymphocytes % (Manual) 6 L (20-40) % Monocytes % (Manual) 5 (2-11) % Abs Neuts (Manual) 13.2 H (2.0-8.3) X10*3/uL Lymphocytes # (Manual) 0.9 L (1.2-4.9) X10*3/uL Monocytes # (Manual) 0.7 (0.1-1.2) X10*3/uL Toxic Vacuolation PRESENT Platelet Estimate NORMAL (NORMAL) Large Platelets PRESENT Plt Morphology Comment NOTED RBC Morphology NORMAL PT 12.0 (10.0-13.1) SEC INR 1.0 (0.9-1.1) APTT 27.4 (26.0-36.4) SEC Sodium 132 L (135-145) mmol/L Potassium 3.4 (3.3-5.1) mmol/L Chloride 89 L (96-108) mmol/L Carbon Dioxide 27 (22-29) mmol/L Anion Gap 19 (12-20) BUN 23 H (9-16) mg/dL Creatinine 2.74 H (0.5-1.4) mg/dL Estim Creat Clear Calc 38.1 Estimated GFR 25 Random Glucose 96 (60-115) mg/dL Calcium 9.0 D (8.4-10.2) mg/dL Magnesium 1.7 (1.6-2.6) mg/dL Total Bilirubin 0.4 (0.0-1.0) mg/dL AST 474 H (5-37) U/L ALT 147 H (0-40) U/L Alkaline Phosphatase 60 (39-117) U/L Total Creatine Kinase (38-174) U/L Troponin I High Sens (<3.5-35.0) ng/L Total Protein 7.2 (6.5-8.0) g/dL Albumin 4.1 (3.5-5.0) g/dL Lipase 182 H (8-78) U/L Ethyl Alcohol mg/dL COVID-19 ([facility]) (Negative) COVID-19 Clin Com 02/02/23 02/02/23 02/02/23 Range/Units 01:25 01:25 01:25 WBC (4.8-10.8) X10*3/uL RBC (4.60-5.80) X10*6/uL Hgb (14.0-18.0) g/dl Hct (42.0-52.0) % MCV (80.0-98.0) fL MCH (27.0-33.0) pg MCHC (31.0-36.0) g/dl RDW (11.0-16.0) % Plt Count (160-400) X10*3/uL MPV (9.4-12.4) fL Immature Gran % (Auto) Neut % (Auto) Lymph % (Auto) [place] % (Auto) Eos % (Auto) Baso % (Auto) Lymph # (Auto) [place] # (Auto) Eos # (Auto) Baso # (Auto) Abs Immat Gran (auto) Absolute Neuts (auto) Absolute Nucleated RBC (0.0-0.012) X10*3/uL Nucleated RBC % (auto) (0.0-0.2) /100WBC Neutrophils % (Manual) (45-73) % Band Neutrophils % (3-5) % Lymphocytes % (Manual) (20-40) % Monocytes % (Manual) (2-11) % Abs Neuts (Manual) (2.0-8.3) X10*3/uL Lymphocytes # (Manual) (1.2-4.9) X10*3/uL Monocytes # (Manual) (0.1-1.2) X10*3/uL Toxic Vacuolation Platelet Estimate (NORMAL) Large Platelets Plt Morphology Comment RBC Morphology PT (10.0-13.1) SEC INR (0.9-1.1) APTT (26.0-36.4) SEC Sodium (135-145) mmol/L Potassium (3.3-5.1) mmol/L Chloride (96-108) mmol/L Carbon Dioxide (22-29) mmol/L Anion Gap (12-20) BUN (9-16) mg/dL Creatinine (0.5-1.4) mg/dL Estim Creat Clear Calc Estimated GFR Random Glucose (60-115) mg/dL Calcium (8.4-10.2) mg/dL Magnesium (1.6-2.6) mg/dL Total Bilirubin (0.0-1.0) mg/dL AST (5-37) U/L ALT (0-40) U/L Alkaline Phosphatase (39-117) U/L Total Creatine Kinase 16028 H (38-174) U/L Troponin I High Sens 122.1 H* D (<3.5-35.0) ng/L Total Protein (6.5-8.0) g/dL Albumin (3.5-5.0) g/dL Lipase (8-78) U/L Ethyl Alcohol < 10 mg/dL COVID-19 ([facility]) Negative (Negative) COVID-19 Clin Com See Note Independent Interpretation I performed an independent interpretation of an: EKG (Sinus rhythm with a rate of 80 beats per minute. Patient has flattened T-waves in inferior leads which are improved from T-wave inversions from [address] Scan (No intracranial hemorrhage) Radiology Impression Discussion of test interpretation with radiology: I have reviewed the radiologist's reading. (No traumatic injuries of the brain, maxillofacial bones, cervical spine) Discharge Plan Discharge Clinical Impression: Acute renal failure due to rhabdomyolysis Patient Disposition: Admitted As Inpatient
[2023-02-02] MEDS: 0.9 % Sodium Chloride 1,000 ML 999 ML IV ×2 (01:26→02:31)
[2023-02-02 01:33] LABS: Hemoglobin 15.4 g/dl (14.0-18.0); Mean Corpuscular HGB Conc 33.5 g/dl (31.0-36.0); Mean Corpuscular Hemoglobin 29.2 pg (27.0-33.0); Mean Corpuscular Volume 87.1 fL (80.0-98.0); Mean Platelet Volume 12.1 fL (9.4-12.4); Platelet Count 275 X10*3/uL (160-400); Red Blood Count 5.28 X10*6/uL (4.60-5.80); Red Cell Distribution Width 12.8 % (11.0-16.0); WBC ABN SCTR FOR CBC 1
[2023-02-02 01:36] LABS: White Blood Count 14.8 X10*3/uL (4.8-10.8)
[2023-02-02 01:41] LABS: Partial Thromboplastin Time 27.4 SEC (26.0-36.4)
[2023-02-02 01:47] LABS: COVID-19 Test Negative (Negative); IDNOW Serial# BCCEAD1C
[2023-02-02 01:50] LABS: Alanine Aminotransferase 147 U/L (0-40); Albumin Level 4.1 g/dL (3.5-5.0); Alkaline Phosphatase 60 U/L (39-117); Anion Gap 19 (12-20); Aspartate Amino Transferase 474 U/L (5-37); Bilirubin Total 0.4 mg/dL (0.0-1.0); Blood Urea Nitrogen 23 mg/dL (9-16); Carbon Dioxide 27 mmol/L (22-29); Chloride 89 mmol/L (96-108); Creatinine Clr Calc Pharmacy 38.1; Estimated Glomerular Filt Rate 25; Glucose Random 96 mg/dL (60-115); Lipase 182 U/L (8-78); Magnesium 1.7 mg/dL (1.6-2.6); Potassium 3.4 mmol/L (3.3-5.1); Sodium 132 mmol/L (135-145); Total Protein 7.2 g/dL (6.5-8.0)
[2023-02-02 01:52] LABS: Band Neutrophils Percent 1 % (3-5); Lymphocytes Absolute Manual 0.9 X10*3/uL (1.2-4.9); Lymphocytes Percent Manual 6 % (20-40); Monocytes Absolute Manual 0.7 X10*3/uL (0.1-1.2); Monocytes Percent Manual 5 % (2-11); Neutrophils Absolute Manual 13.2 X10*3/uL (2.0-8.3); Neutrophils Percent Manual 88 % (45-73)
[2023-02-02 01:53] LABS: Ethanol < 10 mg/dL; Large Platelet PRESENT; Platelet Estimate NORMAL (NORMAL); Platelet Morphology Comment NOTED; RBC Morphology NORMAL; Toxic Vacuolation PRESENT
[2023-02-02 01:54] LABS: Troponin-I High Sensitivity 122.1 ng/L (<3.5-35.0)
[2023-02-02] MEDS: Aspirin 81 MG TAB.CHEW 324 MG PO (02:30)
--- NOTE | 2023-02-02 03:19 | P.HPHOSP_ITS ---
History of Present Illness Date of Service: 02/02/23 Chief Complaint: Generalized body ache This is a 53-year-old male with pertinent history of mood disorder, essential hypertension, alcohol use disorder, hypothyroidism who presents to the emergency department for evaluation of generalized body ache. Patient states that about 22 hours prior to presentation, patient went to the bathroom. He was feeling drowsy as he had just taken his Seroquel. He does not remember when he passed out. Unclear how long he was on the ground. When he woke up, he was on the bathroom floor and had generalized body discomfort. Patient does have a history of substance use disorder but states he quit in December. Patient denies fever, chills, chest discomfort, palpitations, shortness of breath, abdominal pain, changes in urinary or bowel habits. Patient stated that his mouth feels dry and he feels dehydrated. In the emergency department, serum creatinine and CPK found to be elevated Review of Systems Constitutional: Constitutional: Reports fatigue, Reports lethargy and Reports malaise Cardiovascular: Cardiovascular: Reports no additional cardiovascular compla ints Respiratory: Respiratory: Reports no additional respiratory complaints Gastrointestinal: Gastrointestinal: Reports no additional gastrointestinal complaints Musculoskeletal: Musculoskeletal: Reports back pain, Reports myalgias, Reports muscle cramps and Reports muscle weakness Endocrine: Endocrine: Reports fatigue PMFSH Medical History Alcohol use disorder Hypertension Hypothyroidism Mood disorder Obesity Substance use disorder Family History Father No problems noted. Mother No problems noted. Surgical History No pertinent past surgical history Social History Housing: House Alcohol intake: former Patient Tobacco Use Status: Never used Tobacco Smoked in Last 30 Days: No e-Cigarette/Vaping Use: Never Used Second Hand Smoke Exposure: No Use of substances other than those prescribed or required for medical reasons: No Advance Directives: No Advance Directives Information Provided: Yes service: No Current occupational status: employed Current occupational exposures/hazards: No Cognitive needs: No Hearing needs: No Vision needs: No Meds Allergies Allergy/AdvReac Type Severity Reaction Status Date / Time Fruit skins Allergy Unknown Unknown Uncoded 01/25/23 23:42 Active Medications: Current Medications Sodium Chloride (Ns) 500 mls @ 200 mls/hr IVCONT .[id number] GRAYSON Stop: 02/03/23 09:59 Pharmacy Consult (Consult Rx Perform Med Rec) 1 each MISCELLANE ONCE PRN PRN Reason: Consult order Physical Exam Vital Signs and Narrative: Vital Signs: Last Vital Signs Temp 98 F 02/02/23 00:35 Pulse 85 02/02/23 02:14 Resp 10 L 02/02/23 00:35 BP 91/59 L 02/02/23 02:14 Pulse Ox 95 02/02/23 00:35 O2 Del Method Room Air 02/02/23 00:35 BMI result Body Mass Index 36.5 Middle-aged male lying in bed in mild distress Neck supple, no JVD Regular rate and rhythm, S1-S2 heard Regular breath sounds bilaterally, no wheezing or crackles appreciated Abdomen distended and firm, nontender, no guarding, no rigidity Patient is awake, alert and oriented to place, time and person ; no focal motor deficit Psych: Normal mood No pedal edema Results Labs 02/02/23 01:25 02/02/23 01:25 Labs: Laboratory Results - last 24 hr 02/02/23 02/02/23 02/02/23 01:25 01:25 01:25 MCV 87.1 MCH 29.2 MCHC 33.5 RDW 12.8 Plt Count 275 MPV 12.1 Immature Gran % (Auto) Cancelled Neut % (Auto) Cancelled Lymph % (Auto) Cancelled [place] % (Auto) Cancelled Eos % (Auto) Cancelled Baso % (Auto) Cancelled Lymph # (Auto) Cancelled [place] # (Auto) Cancelled Eos # (Auto) Cancelled Baso # (Auto) Cancelled Abs Immat Gran (auto) Cancelled Absolute Neuts (auto) Cancelled Absolute Nucleated RBC 0.000 Nucleated RBC % (auto) 0.0 Neutrophils % (Manual) 88 H Band Neutrophils % 1 L Lymphocytes % (Manual) 6 L Monocytes % (Manual) 5 Abs Neuts (Manual) 13.2 H Lymphocytes # (Manual) 0.9 L Monocytes # (Manual) 0.7 Toxic Vacuolation PRESENT Platelet Estimate NORMAL Large Platelets PRESENT Plt Morphology Comment NOTED RBC Morphology NORMAL PT 12.0 INR 1.0 APTT 27.4 Anion Gap 19 Estim Creat Clear Calc 38.1 Estimated GFR 25 Random Glucose 96 Calcium 9.0 D Magnesium 1.7 Total Bilirubin 0.4 AST 474 H ALT 147 H Alkaline Phosphatase 60 Total Creatine Kinase Troponin I High Sens Total Protein 7.2 Albumin 4.1 Lipase 182 H Ethyl Alcohol COVID-19 ([facility]) COVID-19 Clin Com 02/02/23 02/02/23 02/02/23 01:25 01:25 01:25 MCV MCH MCHC RDW Plt Count MPV Immature Gran % (Auto) Neut % (Auto) Lymph % (Auto) [place] % (Auto) Eos % (Auto) Baso % (Auto) Lymph # (Auto) [place] # (Auto) Eos # (Auto) Baso # (Auto) Abs Immat Gran (auto) Absolute Neuts (auto) Absolute Nucleated RBC Nucleated RBC % (auto) Neutrophils % (Manual) Band Neutrophils % Lymphocytes % (Manual) Monocytes % (Manual) Abs Neuts (Manual) Lymphocytes # (Manual) Monocytes # (Manual) Toxic Vacuolation Platelet Estimate Large Platelets Plt Morphology Comment RBC Morphology PT INR APTT Anion Gap Estim Creat Clear Calc Estimated GFR Random Glucose Calcium Magnesium Total Bilirubin AST ALT Alkaline Phosphatase Total Creatine Kinase 97571 H Troponin I High Sens 122.1 H* D Total Protein Albumin Lipase Ethyl Alcohol < 10 COVID-19 ([facility]) Negative COVID-19 Clin Com See Note Imaging Radiologist's Impressions: Impressions Cervical Spine CT 02/02/23 01:05 IMPRESSION: 1. No acute intracranial findings. 2. No acute maxillofacial fracture. 3. No acute fracture or malalignment of the cervical spine. Face CT 02/02/23 01:05 IMPRESSION: 1. No acute intracranial findings. 2. No acute maxillofacial fracture. 3. No acute fracture or malalignment of the cervical spine. Head CT 02/02/23 01:05 IMPRESSION: 1. No acute intracranial findings. 2. No acute maxillofacial fracture. 3. No acute fracture or malalignment of the cervical spine. Ribs X-Ray 02/02/23 01:20 IMPRESSION: * No rib fractures. * Streaky opacity at left lung base favors subsegmental atelectasis and/or pleural parenchymal scarring. Assessment and Plan (1) Acute renal failure due to rhabdomyolysis: Status: Acute Plan This is a 53-year-old male with pertinent history of mood disorder, essential hypertension, alcohol use disorder, hypothyroidism who presents to the emergency department for evaluation of generalized body ache. #. Rhabdomyolysis, traumatic. Will admit patient and continue IV crystalloid resuscitation. Monitor CPK and serum electrolytes #. Acute toxic encephalopathy. UDS pending. Consult psych to optimize antipsychotics #. Acute kidney injury, stage II. Monitor creatinine and urine output with fluid resuscitation. Avoid nephrotoxins #. Reactive leukocytosis #. Elevated troponin, likely in the setting of increased demand. Trend #. Essential hypertension. Hold antihypertensives in the setting of intravascular volume depletion #. Alcohol use disorder. Continue thiamine #. Hypothyroidism. On Synthroid. Obtain TSH Med rec pending DVT prophylaxis: Lovenox Full code Cardiac diet Admit as inpatient and will require two night minimum hospital stay for IV fluid resuscitation and close monitoring of creatinine Time Spent With Patient Time: Total time managing care of this patient today ____ minutes. Quality Stroke Does the patient have a stroke diagnosis?: No VTE Prior VTE?: No VTE Risk Level:: Medical - moderate - high VTE Device Contraindication: Treatment Not Indicated VTE Drug Contraindication: N/A - Med Ordered
--- NOTE | 2023-02-02 03:40 | PC.NURSE ---
Dr Francisco ordering 1 Liter normal saline until pt moves to the floor. Pt getting his second liter now.
[2023-02-02] MEDS: Enoxaparin Sodium 40 MG/0.4 ML SYRINGE SUBCUT (04:04)
[2023-02-02] MEDS: ondansetron HCL 4 MG/2 ML VIAL IVPUSH ×2 (04:07→19:54)
[2023-02-02 04:10] LABS: Thyroid Stimulating Hormone 2.04 uIU/mL (0.32-4.0)
[2023-02-02] MEDS: 0.9 % Sodium Chloride Flush 3 ML SYRINGE IVFLUSH (05:03)
[2023-02-02] MEDS: 0.9 % Sodium Chloride 1,000 ML 999 ML IVCONT ×3 (05:03→07:54)
[2023-02-02 05:11] LABS: MANUAL DIFF FLAG NO
[2023-02-02 05:12] LABS: Basophils Percent Auto 0.1 % (0-2); Eosinophils Percent Auto 0.1 % (0-4); Hematocrit 43.1 % (42.0-52.0); Hemoglobin 14.2 g/dl (14.0-18.0); Imm Gran Abs Auto 0.05 X10*3/uL (0.00-0.03); Imm Gran Pct Auto 0.4 % (0.0-0.4); Lymphocytes Absolute Auto 1.3 X10*3/uL (1.2-4.9); Lymphocytes Percent Auto 9.3 % (20-40); Mean Corpuscular HGB Conc 32.9 g/dl (31.0-36.0); Mean Corpuscular Hemoglobin 29.3 pg (27.0-33.0); Mean Platelet Volume 12.1 fL (9.4-12.4); Monocytes Absolute Auto 0.8 X10*3/uL (0.1-1.2); Monocytes Percent Auto 5.7 % (2-11); Neutrophils Absolute Auto 11.5 x10*3/uL (2.0-8.3); Neutrophils Percent Auto 84.4 % (45-73); Platelet Count 214 X10*3/uL (160-400); Red Blood Count 4.84 X10*6/uL (4.60-5.80); Red Cell Distribution Width 12.9 % (11.0-16.0); White Blood Count 13.6 X10*3/uL (4.8-10.8)
[2023-02-02 05:27] LABS: Anion Gap 15 (12-20); Blood Urea Nitrogen 23 mg/dL (9-16); Carbon Dioxide 26 mmol/L (22-29); Chloride 95 mmol/L (96-108); Creatinine Clr Calc Pharmacy 50.2; Estimated Glomerular Filt Rate 33; Glucose Random 81 mg/dL (60-115); Potassium 3.7 mmol/L (3.3-5.1); Sodium 132 mmol/L (135-145)
[2023-02-02 05:32] LABS: Troponin-I High Sensitivity 80.8 ng/L (<3.5-35.0)
--- NOTE | 2023-02-02 06:54 | PC.NURSE ---
Pt is a new admit. Came in with the second bag of NS infusing. 3rd bag given an 4rth bag in currently infusing. Orders clarify as to how many bolus of NS needed to be given. Per MD order, after 6th bag, start at a lower rate. See orders. Pt voided 150ml to bedside commode Urine sample sent to labs.
[2023-02-02 06:58] LABS: Appearance Urine Turbid; Color Urine Yellow; Glucose Urine UA Negative (Negative); Leukocyte Esterase Urine Negative (Negative); Nitrite Urine Negative (Negative); PH 5.5 (5.0-9.0); Specific Gravity - Urine 1.015 (1.005-1.025); UMIC TRIGGER UACC YES; Urine Blood Large (3+) (Negative); Urine Ketones Negative (Negative); Urine Protein 30 (1+) mg/dL (Neg-Trace)
[2023-02-02 07:22] LABS: Bacteria Urine None Seen (None Seen); Other Crystals Urine Present; RBC Urine >20 /HPF (0-2); WBC Urine 0-5 /HPF (0-5)
--- NOTE | 2023-02-02 07:28 | PM.EVENT ---
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 Optimize hydration, ? maybe need bicab, add Nephro consult, make sure K and phos normal. complete med rec. O/w A/P per h and p from this moring Time Spent With Patient Time: Total time managing care of this patient today ____ minutes.
[2023-02-02] MEDS: Acetaminophen 325 MG TABLET 650 MG PO ×3 (07:43→21:25)
[2023-02-02 08:30] LABS: Troponin-I High Sensitivity 90.9 ng/L (<3.5-35.0)
--- NOTE | 2023-02-02 09:00 | PHA.MEDREC ---
Pharmacy Consult ? Medication Reconciliation Pharmacy has completed the medication reconciliation. spoke with patient. He reports not taking his allopurinol since the beginning of December. He was prescribed thiamine, potassium, a multivitamin, and zofran from the ED at the beginning of this month however he said he ran out of them and was unable to see his PCP recently. He is also on Trazodone 100mg PRN for sleep and he believes that is what made him fall recently. He has not taken his medications for a few days now.
--- NOTE | 2023-02-02 10:00 | MHC.CM.PN ---
CM MET WITH PT AT BEDSIDE. PT LETHARGIC AND NOT ABLE TO FULLY PARTICIPATE IN ASSESSMENT. INDEPENDENT AT BASELINE AND IS EMPLOYED F/T. WOULD LIKE TO DO A HCP BUT UNABLE TO PROVIDE INFORMATION NECESSARY TO COMPLETE. WILL RE-APPROACH WHEN LESS LETHARGIC. +COVID VAX [address] BARNEY AT [facility] DP: HOME, UNSURE IF WILL NEED ANY SERVICES. FRIEND WILL TRANSPORT AT DC. CM WILL CONTINUE TO FOLLOW FOR DCPLAN/NEEDS.
[2023-02-02] MEDS: 0.9 % Sodium Chloride 1,000 ML 250 ML IVCONT ×3 (10:27→19:43)
[2023-02-02] MEDS: FLUoxetine HCl 20 MG CAPSULE 40 MG PO (10:35)
--- NOTE | 2023-02-02 13:36 | PC.NURSE ---
Patient is drowsy but easily arousable. Alert and oriented x4. c/o headache ongoing Tylenol given with some effect, bruising and swelling noted to right head/forehead per patient from fall at home. Scattered bruising to extremities and trunk different stages of healing. OOB to commode with assist voiding without difficulty. Continues IV fluids changed from bolus in am to NS 250ml/hr maintenance. While sleeping desat into low 80's on monitor Dr Ramírez notified placed on 2L oxygen via nasal canula while sleeping sats back into high 90's. c/o numbness to to right side of head in early afternoon Dr Ramírez notified.
--- NOTE | 2023-02-02 14:44 | P.CNPS_ITS ---
History of Present Illness Date of Service: 02/02/2023 Chief Complaint: Generalized ache Reason for Consult: psychopharm mgmt consult HPI Narrative: per 02/02 hospitalist admission note: This is a 53-year-old male with pertinent history of mood disorder, essential hypertension, alcohol use disorder, hypothyroidism who presents to the emergency department for evaluation of generalized body ache.? Patient states that about 22 hours prior to presentation, patient went to the bathroom.? He was feeling drowsy as he had just taken his Seroquel.? He does not remember when he passed out.? Unclear how long he was on the ground.? When he woke up, he was on the bathroom floor and had generalized body discomfort.? Patient does have a history of substance use disorder but states he quit in December.? Patient denies fever, chills, chest discomfort, palpitations, shortness of breath, abdominal pain, changes in urinary or bowel habits.? Patient stated that his mouth feels dry and he feels dehydrated. In the emergency department, serum creatinine and CPK found to be elevated psych MD addition: he was admitted medically for ARF and rhabdo. psych was consulted due to seroquel Rx and any role it might play in presentation. pt denied any chronic severe mental illness and presented no Hx consistent with bipolar disorder. he reported he takes seroquel for sleep at 100 mg QHS, a modest dose. seroquel is known for causing orthostatic hypotension and is quite sedating and so may have played a role in the events which brought this individual to the hospital. pt reported taking klonopin 1-3 mg daily for anxiety, generally 1-2; he reports he likes to have the extra available (he is prescribed 1 TID) for especially stressful situations. his utox was negative for benzos, which is expected with taking less than 2 mg daily. in addition, pt's urine was positive for opioids; he denies using any recently, saying he used to have a problem with them but quit 8-10 years ago. he does report his GF uses them and perhaps he may have gotten some on/in him by kissing her. in addition, pt has elevated AST and ALT levels with AST:ALT well above 2, supportive of alcoholic liver damage. he states he is an alcoholic but that he has been sober since 12/15/22. pt's only stated mental illness is depression, and there is no history supportive of any other diagnosis. he states he has been prescribed klonopin 1 mg TID, seroquel 100 mg QHS, and prozac (dose unknown) for the past 15 years. he has never been psychiatrically hospitalized and has no h/o SA or SIB. Past Psychiatric History: hosps: denies suicide attempts: denies self-injurious behavior: denies h/o court-mandated IOP at [facility] for AUD. h/o therapy for periods over years and psych meds for the past [address] gale first, then prescribers in his practice. was taking klonopin 1 TID, seroquel 100 at HS, and prozac (unsure of dose). trauma: denies [facility] Medical History Alcohol use disorder Hypertension Hypothyroidism Mood disorder Obesity Substance use disorder Surgical History No pertinent past surgical history Family History: father - depression mother - depression brother - depression Social History: pt's father when he was in around 10th grade. 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 Substance History: alcohol - report h/o alcoholism. states he has been sober since 12/15/2022. tobacco - denies use. opiates - utox POS. report h/o opioid use disorder. states he has been sober since 8-10 years ago. benzos - Rx'ed. utox NEG. Trauma History: denies Diagnostics Vital Signs (24Hr): Vital Signs - 24 hr 02/02/23 00:16 02/02/23 00:35 02/02/23 02:10 Temperature 98.7 F 98 F Pulse Rate 83 85 80 Respiratory Rate 16 10 L Blood Pressure 88/61 L 100/49 L 125/90 H Pulse Oximetry 95 95 Oxygen Delivery Method Room Air Room Air 02/02/23 02:13 02/02/23 02:14 02/02/23 04:45 Temperature 97.3 F Pulse Rate 83 85 81 Respiratory Rate 18 Blood Pressure 101/64 91/59 L 126/76 Pulse Oximetry 96 Oxygen Delivery Method Room Air 02/02/23 07:19 02/02/23 11:09 Temperature 97.9 F 97.4 F Pulse Rate 79 87 Respiratory Rate 20 20 Blood Pressure 121/65 119/58 L Pulse Oximetry 97 97 Oxygen Delivery Method Room Air Room Air BMI result Body Mass Index 37.9 Labs 02/02/23 05:05 02/02/23 05:05 Labs: Laboratory Results - last 48 hr 02/02/23 02/02/23 02/02/23 01:25 01:25 01:25 WBC 14.8 H RBC 5.28 Hgb 15.4 Hct 46.0 MCV 87.1 MCH 29.2 MCHC 33.5 RDW 12.8 Plt Count 275 MPV 12.1 Immature Gran % (Auto) Cancelled Neut % (Auto) Cancelled Lymph % (Auto) Cancelled [place] % (Auto) Cancelled Eos % (Auto) Cancelled Baso % (Auto) Cancelled Lymph # (Auto) Cancelled [place] # (Auto) Cancelled Eos # (Auto) Cancelled Baso # (Auto) Cancelled Abs Immat Gran (auto) Cancelled Absolute Neuts (auto) Cancelled Absolute Nucleated RBC 0.000 Nucleated RBC % (auto) 0.0 Neutrophils % (Manual) 88 H Band Neutrophils % 1 L Lymphocytes % (Manual) 6 L Monocytes % (Manual) 5 Abs Neuts (Manual) 13.2 H Lymphocytes # (Manual) 0.9 L Monocytes # (Manual) 0.7 Toxic Vacuolation PRESENT Platelet Estimate NORMAL Large Platelets PRESENT Plt Morphology Comment NOTED RBC Morphology NORMAL PT 12.0 INR 1.0 APTT 27.4 Sodium 132 L Potassium 3.4 Chloride 89 L Carbon Dioxide 27 Anion Gap 19 BUN 23 H Creatinine 2.74 H Estim Creat Clear Calc 38.1 Estimated GFR 25 Random Glucose 96 Calcium 9.0 D Magnesium 1.7 Total Bilirubin 0.4 AST 474 H ALT 147 H Alkaline Phosphatase 60 Total Creatine Kinase Troponin I High Sens Total Protein 7.2 Albumin 4.1 Lipase 182 H TSH 2.04 Urine Color Urine Appearance Urine pH Ur Specific [place] Urine Protein Urine Glucose (UA) Urine Ketones Urine Blood Urine Nitrite Ur Leukocyte Esterase Urine RBC Urine WBC Ur Squamous Epith Cells Other Crystals Urine Bacteria Hyaline Casts Ethyl Alcohol COVID-19 (TICO) COVID-19 Clin Com 02/02/23 02/02/23 02/02/23 01:25 01:25 01:25 WBC RBC Hgb Hct MCV MCH MCHC RDW Plt Count MPV Immature Gran % (Auto) Neut % (Auto) Lymph % (Auto) [place] % (Auto) Eos % (Auto) Baso % (Auto) Lymph # (Auto) [place] # (Auto) Eos # (Auto) Baso # (Auto) Abs Immat Gran (auto) Absolute Neuts (auto) Absolute Nucleated RBC Nucleated RBC % (auto) Neutrophils % (Manual) Band Neutrophils % Lymphocytes % (Manual) Monocytes % (Manual) Abs Neuts (Manual) Lymphocytes # (Manual) Monocytes # (Manual) Toxic Vacuolation Platelet Estimate Large Platelets Plt Morphology Comment RBC Morphology PT INR APTT Sodium Potassium Chloride Carbon Dioxide Anion Gap BUN Creatinine Estim Creat Clear Calc Estimated GFR Random Glucose Calcium Magnesium Total Bilirubin AST ALT Alkaline Phosphatase Total Creatine Kinase 31257 H Troponin I High Sens 122.1 H* D Total Protein Albumin Lipase TSH Urine Color Urine Appearance Urine pH Ur Specific [place] Urine Protein Urine Glucose (UA) Urine Ketones Urine Blood Urine Nitrite Ur Leukocyte Esterase Urine RBC Urine WBC Ur Squamous Epith Cells Other Crystals Urine Bacteria Hyaline Casts Ethyl Alcohol < 10 COVID-19 (TICO) Negative COVID-19 Clin Com See Note 02/02/23 02/02/23 02/02/23 05:05 05:05 05:05 WBC 13.6 H RBC 4.84 Hgb 14.2 Hct 43.1 MCV 89.0 MCH 29.3 MCHC 32.9 RDW 12.9 Plt Count 214 MPV 12.1 Immature Gran % (Auto) 0.4 Neut % (Auto) 84.4 H Lymph % (Auto) 9.3 L [place] % (Auto) 5.7 Eos % (Auto) 0.1 Baso % (Auto) 0.1 Lymph # (Auto) 1.3 [place] # (Auto) 0.8 Eos # (Auto) 0.0 Baso # (Auto) 0.0 Abs Immat Gran (auto) 0.05 H Absolute Neuts (auto) 11.5 H Absolute Nucleated RBC 0.000 Nucleated RBC % (auto) 0.0 Neutrophils % (Manual) Band Neutrophils % Lymphocytes % (Manual) Monocytes % (Manual) Abs Neuts (Manual) Lymphocytes # (Manual) Monocytes # (Manual) Toxic Vacuolation Platelet Estimate Large Platelets Plt Morphology Comment RBC Morphology PT INR APTT Sodium 132 L Potassium 3.7 Chloride 95 L Carbon Dioxide 26 Anion Gap 15 BUN 23 H Creatinine 2.12 H Estim Creat Clear Calc 50.2 Estimated GFR 33 Random Glucose 81 Calcium 8.0 L D Magnesium Total Bilirubin AST ALT Alkaline Phosphatase Total Creatine Kinase Troponin I High Sens 80.8 H Total Protein Albumin Lipase TSH Urine Color Urine Appearance Urine pH Ur Specific [place] Urine Protein Urine Glucose (UA) Urine Ketones Urine Blood Urine Nitrite Ur Leukocyte Esterase Urine RBC Urine WBC Ur Squamous Epith Cells Other Crystals Urine Bacteria Hyaline Casts Ethyl Alcohol COVID-19 (TICO) COVID-19 Clin Com 02/02/23 02/02/23 02/02/23 06:36 08:01 08:01 WBC RBC Hgb Hct MCV MCH MCHC RDW Plt Count MPV Immature Gran % (Auto) Neut % (Auto) Lymph % (Auto) [place] % (Auto) Eos % (Auto) Baso % (Auto) Lymph # (Auto) [place] # (Auto) Eos # (Auto) Baso # (Auto) Abs Immat Gran (auto) Absolute Neuts (auto) Absolute Nucleated RBC Nucleated RBC % (auto) Neutrophils % (Manual) Band Neutrophils % Lymphocytes % (Manual) Monocytes % (Manual) Abs Neuts (Manual) Lymphocytes # (Manual) Monocytes # (Manual) Toxic Vacuolation Platelet Estimate Large Platelets Plt Morphology Comment RBC Morphology PT INR APTT Sodium Potassium Chloride Carbon Dioxide Anion Gap BUN Creatinine Estim Creat Clear Calc Estimated GFR Random Glucose Calcium Magnesium Total Bilirubin AST ALT Alkaline Phosphatase Total Creatine Kinase 49021 H Troponin I High Sens 90.9 H Total Protein Albumin Lipase TSH Urine Color Yellow Urine Appearance Turbid Urine pH 5.5 Ur Specific [place] 1.015 Urine Protein 30 (1+) H Urine Glucose (UA) Negative Urine Ketones Negative Urine Blood Large (3+) H Urine Nitrite Negative Ur Leukocyte Esterase Negative Urine RBC >20 H Urine WBC 0-5 Ur Squamous Epith Cells 3-5 Other Crystals Present Urine Bacteria None Seen Hyaline Casts 11-20 Ethyl Alcohol COVID-19 (TICO) COVID-19 Clin Com Imaging Radiology Impressions: ITS Impressions Cervical Spine CT 02/02/23 01:05 IMPRESSION: 1. No acute intracranial findings. 2. No acute maxillofacial fracture. 3. No acute fracture or malalignment of the cervical spine. Face CT 02/02/23 01:05 IMPRESSION: 1. No acute intracranial findings. 2. No acute maxillofacial fracture. 3. No acute fracture or malalignment of the cervical spine. Head CT 02/02/23 01:05 IMPRESSION: 1. No acute intracranial findings. 2. No acute maxillofacial fracture. 3. No acute fracture or malalignment of the cervical spine. Ribs X-Ray 02/02/23 01:20 IMPRESSION: * No rib fractures. * Streaky opacity at left lung base favors subsegmental atelectasis and/or pleural parenchymal scarring. Mental Status Exam Mental Status Exam Narrative: supine in hospital bed, dressed in [facility]. cooperative. no PMA/PMR. speech nml rate, amount, loudness, tone, latency. thoughts linear and logical. affect constricted, normo-intense, non-labile. mood miserable due to pain. denies SI/HI/AVH. Medications Medications Current Medications Acetaminophen (Acetaminophen 325 Mg Tablet) 650 mg PO Q6H PRN PRN Reason: Pain, Mild (Pain Scale 1-3) Last Admin: 02/02/23 07:43 Dose: 650 mg Enoxaparin Sodium (Enoxaparin Sodium 40 Mg/0.4 Ml Syringe) 40 mg SUBCUT Q24H [facility] Last Admin: 02/02/23 04:04 Dose: 40 mg Fenofibrate (Fenofibrate 160 Mg Tablet) 160 mg PO DAILY [facility] Fluoxetine HCl (Fluoxetine Hcl 20 Mg Capsule) 40 mg PO DAILY [facility] Last Admin: 02/02/23 10:35 Dose: 40 mg Fluticasone Propionate (Fluticasone Propionate Nasal 16 Gm Price) 1 spray NOSTRIL-B DAILY [facility] Sodium Chloride (Ns) 1,000 mls @ 250 mls/hr IVCONT .Q4H [facility] Stop: 02/03/23 08:44 Last Admin: 02/02/23 10:27 Dose: 250 mls/hr Levothyroxine Sodium (Levothyroxine Sodium 125 Mcg Tablet) 125 mcg PO DAILY@0600 [facility] Melatonin (Melatonin 3 Mg Tablet) 6 mg PO BEDTIME PRN PRN Reason: Insomnia Metoprolol Tartrate (Metoprolol Tartrate 50 Mg Tablet) 50 mg PO BID [facility]; Protocol Multivitamins/Vitamin C (Multivitamin Tablet) 1 tab PO DAILY [facility] Omeprazole (Omeprazole 20 Mg Capsule.Dr) 20 mg PO DAILY@0630 [facility] Ondansetron HCl (Ondansetron Hcl 4 Mg/2 Ml Vial) 4 mg IVPUSH Q8H PRN PRN Reason: Nausea and Vomiting Last Admin: 02/02/23 04:07 Dose: 4 mg Pharmacy Consult (Consult Rx Perform Med Rec) 1 each MISCELLANE ONCE PRN PRN Reason: Consult order Senna (Sennosides 8.6 Mg Tablet) 8.6 mg PO BEDTIME [facility] Sodium Chloride (0.9 % Sodium Chloride Flush 3 Ml Syringe) 3 ml IVFLUSH QSHIFT [facility] Last Admin: 02/02/23 05:03 Dose: 3 ml Thiamine HCl (Thiamine Hcl 100 Mg Tablet) 500 mg PO DAILY [facility] Tiotropium [place] (Tiotropium [place] 18 Mcg Cap.W.Dev) 1 puff INHALE RDAILY [facility] Allergies Allergies Allergy/AdvReac Type Severity Reaction Status Date / Time Fruit skins Allergy Unknown Unknown Uncoded 01/25/23 23:42 Assessment & Plan Assessment & Plan (1) Alcoholism: Status: Acute Code(s): F10.20 - Alcohol dependence, uncomplicated (2) Opioid use disorder: Status: Acute Code(s): F11.90 - Opioid use, unspecified, uncomplicated (3) Hypothyroidism: Status: Acute Code(s): E03.9 - Hypothyroidism, unspecified Plan pt who lost consciousness at home for many hours and then presented to hospital for medical care found to have rhabdo and ARF. it is very likely his loss of consciousness was related to various substances he may have ingested that evening. he reportedly took his medications that evening, including klonopin, seroquel, and trazodone, all of which are sedating. in addition his utox was positive for opioids (pt denies use). his LFTs support heavy chronic alcohol use; it is unclear if he also has been drinking recently. per his report he has been sober since 12/15/22. further testing is indicated in order to clarify recent substance use. urine should be sent for confirmation and quantification of benzodiazepines as well as opioids. further urine testing for carbohydrate- deficient transferrin (CDT), phosphatidylethanol (PEth), and ethylglucuronide (EtG) should be sent to assess for recent alcohol use. low doses of klonopin, such as below 2 mg daily, are not likely to produce a positive urine test, so he may very well be using up to 2 or so mg of klonopin daily. due to this patient's history of AUD and opioid use disorders, prescribing him a benzodiazepine is fraught with problems, such as kindling a relapse to alcohol use or resulting in fatal overdose if return to opioid use o ccurs. he reports usually taking 1-2 mg of klonopin daily, and his utox is negative for benzos, supporting limited use. i would not restart benzodiazepines in this patient for the reasons i have identified above. the dose he has been taking is low enough and klonopin has a sufficient half life th at i do not believe a taper is indicated. he reports trazodone makes him feel groggy persistently into the day; i would recommend DC of trazodone and trial of remeron 15-45 mg QHS for sleep. seroquel is known to cause orthostatic hypotension and is quite sedating. i would continue this for now but if possible would work to taper and ultimately DC if other medications for sleep can be found helpful. i would continue the prozac for depression and anxiety. correction of medical conditions as you are doing. Total time managing care of this patient today __75__ minutes.
[2023-02-02 16:34] LABS: Amphetamine Screen Urine Not Detected (Not Detect); Barbiturates, Urine Not Detected (Not Detect); Benzodiazepines Screen Urine Not Detected (Not Detect); Cannabinoid Screen Urine Not Detected (Not Detect); Cocaine Screen Urine Not Detected (Not Detect); Fentanyl, urine POSITIVE (Not Detect); Opiate Screen Urine POSITIVE (Not Detect); Phencyclidine Screen Urine Not Detected (Not Detect)
[2023-02-02] MEDS: Metoprolol Tartrate 50 MG TABLET PO (19:45)
[2023-02-02] MEDS: Sennosides 8.6 MG TABLET PO (19:45)
[2023-02-02] MEDS: Melatonin 3 MG TABLET 6 MG PO (19:54)
--- NOTE | 2023-02-02 21:18 | CONS_ITS ---
DATE OF SERVICE: 02/02/2023 REASON FOR CONSULTATION: For assistance in evaluation and management of the patient's acute renal failure in the setting of severe rhabdomyolysis with a creatinine of 2.74 on admission and a CPK of 32,000 on admission. His CPK is down to 20,000 and repeat creatinine is down to 2.1. HISTORY OF PRESENT ILLNESS: In summary, the patient is a 53-year-old gentleman with a history of hypertension, mood disorder, alcohol abuse, hypothyroidism, who came to emergency room after a period of passing out in his bathroom and details he is not clear about. The last time he remembers something was over 15 hours prior to coming to the emergency room. He had generalized body aches. He has aches in his left upper arm and left buttocks area. In the emergency room, the patient had labs done, which showed again the acute kidney injury and severe rhabdomyolysis. Overall, he is feeling better and getting IV fluids and making urine. PAST MEDICAL HISTORY: As noted above. MEDICATIONS: He is on no routine medications. SOCIAL HISTORY: He is a nonsmoker but significant alcohol use. Denies illicit drug use. FAMILY HISTORY: Noncontributory. REVIEW OF SYSTEMS: As noted above. PHYSICAL EXAMINATION: VITAL SIGNS: Blood pressure of 120/60 with a heart rate in the 70s. HEAD: Atraumatic and normocephalic. NECK: Supple. Mucous membranes moist. LUNGS: Clear. CARDIAC: Regular rate and rhythm. ABDOMEN: Soft. EXTREMITIES: No edema. He does have some swelling in his left shoulder area and left buttock area. LABORATORY DATA: Sodium 132, potassium 3.7, chloride 95, bicarb 26, BUN 23, creatinine 2.12, which was 2.7. CPK repeat is 20,000 was 30,000. Urinalysis showed urine pH of 5.5. He had some red cells in the urine and hemoglobin was markedly positive by dipstick. IMPRESSION: A 53-YEAR-OLD ALCOHOL USER. THE PATIENT ADMITTED TO THE HOSPITAL WITH UNCONSCIOUS EPISODE, RHABDOMYOLYSIS, AND ACUTE KIDNEY INJURY. 1. Acute kidney injury. Clinical presentation most consistent with rhabdomyolysis associated acute tubular necrosis. He is having good urine output and renal function is gradually improving and CPK is coming down consistent with responding well to the IV fluids. There is some potential benefit of alkalinizing urine. However, given the fact that his renal function is improving and CPKs are coming down, I think we can continue simply with the normal saline infusion at a brisk rate which he is getting to maintain urine output of at least 100 to 150 cc an hour. 2. Hyponatremia. This is mild. We will continue to monitor this. 3. Rhabdomyolysis. This is due to the falling episode and being unconscious and muscle injury. RECOMMENDATION: At this time include continue to follow urine output and renal function. If his CPKs go up or his renal function does not continue to improve, then we would alkalinize his urine. We will follow the patient with the team. MD PEBBLES Duff/CHRISTIANO / [phone]
[2023-02-03] MEDS: 0.9 % Sodium Chloride 1,000 ML 250 ML IVCONT ×3 (00:10→08:19)
[2023-02-03] MEDS: 0.9 % Sodium Chloride Flush 3 ML SYRINGE IVFLUSH ×2 (00:10→08:18)
[2023-02-03 03:11] VITALS: BP 132/72; PULSE 84; RESP 18; TEMP 37; O2SAT 95
[2023-02-03] MEDS: Enoxaparin Sodium 40 MG/0.4 ML SYRINGE SUBCUT (03:14)
[2023-02-03] MEDS: Acetaminophen 325 MG TABLET 650 MG PO ×2 (03:15→16:30)
[2023-02-03] MEDS: ondansetron HCL 4 MG/2 ML VIAL IVPUSH ×2 (03:22→16:30)
[2023-02-03] MEDS: Levothyroxine Sodium 125 MCG TABLET PO (05:27)
[2023-02-03] MEDS: Omeprazole 20 MG CAPSULE.DR PO (05:28)
[2023-02-03 08:00] VITALS: BP 162/72; PULSE 82; RESP 20; TEMP 36.8; O2SAT 94
[2023-02-03] MEDS: FLUoxetine HCl 20 MG CAPSULE 40 MG PO (08:20)
[2023-02-03] MEDS: Thiamine HCL 100 MG TABLET 500 MG PO (08:20)
[2023-02-03] MEDS: Fenofibrate 160 MG TABLET PO (08:20)
[2023-02-03] MEDS: Metoprolol Tartrate 50 MG TABLET PO ×2 (08:20→21:35)
[2023-02-03] MEDS: Multivitamin TABLET 1 TAB PO (08:20)
[2023-02-03 08:22] LABS: Blood Urea Nitrogen 6 mg/dL (9-16); Calcium 7.7 mg/dL (8.4-10.2); Estimated Glomerular Filt Rate > 60; Glucose Random 100 mg/dL (60-115)
[2023-02-03 08:26] LABS: Anion Gap 10 (12-20); Carbon Dioxide 30 mmol/L (22-29); Chloride 103 mmol/L (96-108); Potassium 2.7 mmol/L (3.3-5.1); Sodium 140 mmol/L (135-145)
--- NOTE | 2023-02-03 09:38 | HO.PM.IMPN ---
Subjective Subjective Date of Service: 02/03/23 Interval History: f/u rhabdomylisis interval history: CPK down to 4K from 32K, peristent body ache, low K of 2.7 Physical Exam Vital Signs: Vital Signs: Last Vital Signs Temp 98.2 F 02/03/23 08:00 Pulse 82 02/03/23 08:00 Resp 20 02/03/23 08:00 BP 162/72 H 02/03/23 08:00 Pulse Ox 94 02/03/23 08:00 O2 Del Method Room Air 02/03/23 08:00 BMI result Body Mass Index 37.9 Const: Other: General: AO X 3, no acute distress Resp: CTA bilateral CVS: S1,S2,RRR GI: +BS, NT, no distention Skin: No rash Neuro: motor grossly intact Psych: appropriate affect Objective Data Active Medications Acetaminophen (Acetaminophen 325 Mg Tablet) 650 mg PO Q6H PRN PRN Reason: Pain, Mild (Pain Scale 1-3) Last Admin: 02/03/23 03:15 Dose: 650 mg Documented By: AFSHAN Enoxaparin Sodium (Enoxaparin Sodium 40 Mg/0.4 Ml Syringe) 40 mg SUBCUT Q24H [facility] Last Admin: 02/03/23 03:14 Dose: 40 mg Documented By: AFSHAN Fenofibrate (Fenofibrate 160 Mg Tablet) 160 mg PO DAILY [facility] Last Admin: 02/03/23 08:20 Dose: 160 mg Documented By: RINA Fluoxetine HCl (Fluoxetine Hcl 20 Mg Capsule) 40 mg PO DAILY [facility] Last Admin: 02/03/23 08:20 Dose: 40 mg Documented By: RINA Fluticasone Propionate (Fluticasone Propionate Nasal 16 Gm [place]) 1 spray NOSTRIL-B DAILY [facility] Levothyroxine Sodium (Levothyroxine Sodium 125 Mcg Tablet) 125 mcg PO DAILY@0600 [facility] Last Admin: 02/03/23 05:27 Dose: 125 mcg Documented By: AFSHAN Melatonin (Melatonin 3 Mg Tablet) 6 mg PO BEDTIME PRN PRN Reason: Insomnia Last Admin: 02/02/23 19:54 Dose: 6 mg Documented By: DAVID Metoprolol Tartrate (Metoprolol Tartrate 50 Mg Tablet) 50 mg PO BID [facility]; Protocol Last Admin: 02/03/23 08:20 Dose: 50 mg Documented By: RINA Multivitamins/Vitamin C (Multivitamin Tablet) 1 tab PO DAILY [facility] Last Admin: 02/03/23 08:20 Dose: 1 tab Documented By: RINA Omeprazole (Omeprazole 20 Mg Capsule.) 20 mg PO DAILY@0630 [facility] Last Admin: 02/03/23 05:28 Dose: 20 mg Documented By: AFSHAN Ondansetron HCl (Ondansetron Hcl 4 Mg/2 Ml Vial) 4 mg IVPUSH Q8H PRN PRN Reason: Nausea and Vomiting Last Admin: 02/03/23 03:22 Dose: 4 mg Documented By: AFSHAN Pharmacy Consult (Consult Rx Perform Med Rec) 1 each MISCELLANE ONCE PRN PRN Reason: Consult order Senna (Sennosides 8.6 Mg Tablet) 8.6 mg PO BEDTIME [facility] Last Admin: 02/02/23 19:45 Dose: 8.6 mg Documented By: DAVID Sodium Chloride (0.9 % Sodium Chloride Flush 3 Ml Syringe) 3 ml IVFLUSH QSHIFT [facility] Last Admin: 02/03/23 08:18 Dose: 3 ml Documented By: RINA Thiamine HCl (Thiamine Hcl 100 Mg Tablet) 500 mg PO DAILY [facility] Last Admin: 02/03/23 08:20 Dose: 500 mg Documented By: RINA Tiotropium [place] (Tiotropium [place] 18 Mcg Cap.W.Dev) 1 puff INHALE RDAILY [facility] Last Admin: 02/03/23 08:17 Dose: Not Given Documented By: LAURA Non-Admin Reason: Med Not Available Labs 02/02/23 05:05 02/03/23 07:53 Labs: Laboratory Results - last 24 hr 02/02/23 02/02/23 02/03/23 06:36 08:01 07:53 Anion Gap 10 L Estim Creat Clear Calc 164.0 Estimated GFR > 60 Random Glucose 100 Calcium 7.7 L Total Creatine Kinase 84242 H 4671 H Urine Opiates Screen POSITIVE H Urine Fentanyl Screen POSITIVE H Ur Barbiturates Screen Not Detected Ur Phencyclidine Scrn Not Detected Ur Amphetamines Screen Not Detected U Benzodiazepines Scrn Not Detected Urine Cocaine Screen Not Detected U Marijuana (THC) Screen Not Detected 02/03/23 07:53 Anion Gap Estim Creat Clear Calc Estimated GFR Random Glucose Calcium Total Creatine Kinase Cancelled Urine Opiates Screen Urine Fentanyl Screen Ur Barbiturates Screen Ur Phencyclidine Scrn Ur Amphetamines Screen U Benzodiazepines Scrn Urine Cocaine Screen U Marijuana (THC) Screen Assessment and Plan (1) Opioid use disorder: Status: Acute (2) Rhabdomyolysis: Status: Acute Plan This is a 53-year-old male with pertinent history of mood disorder, essential hypertension, alcohol use disorder, hypothyroidism who presents to the emergency department for evaluation of generalized body ache. #. Rhabdomyolysis due to prolonged imobilization from lying on the floor. CPK down to 4K from 32K with IVF, at this point stop IVF, correct K #. Acute toxic encephalopathy, he is presently lucid #Hypokalemia--PO and IV K #. Acute kidney injury, creatine down to normal at 0.65 today, was 2.74 #. Reactive ,leukocytosis, no source of infection #. Elevated troponin, related to very high CPK, and very less likely cardiac injury #. Essential hypertension. continue metorplol and resume, Chlorthalidon at discharge #. Alcohol use disorder. Continue thiamine #. Hypothyroidism. On Synthroid. TSH is normal # psych/mood desorder--See Psych consult. Stopping Trazadone, continue seroquel at HS at reduce dose of 50, melatonin for sleep DVT prophylaxis: Lovenox Full code Cardiac diet Admit as inpatient and will require two night minimum hospital stay for IV fluid resuscitation and close monitoring of creatinine Time Spent With Patient Time: Total time managing care of this patient today ____ minutes. Quality Stroke Does the patient have a stroke diagnosis?: No VTE Prior VTE?: No VTE Risk Level:: Medical - moderate - high VTE Device Contraindication: Treatment Not Indicated VTE Drug Contraindication: N/A - Med Ordered
[2023-02-03 10:32] LABS: Magnesium 1.3 mg/dL (1.6-2.6)
[2023-02-03] MEDS: Potassium Chloride Packet 20 MEQ PACKET 40 MEQ PO ×3 (10:40→21:35)
[2023-02-03] MEDS: Magnesium Sulfate/H2O 2 GM/50 ML PIGGYBACK IV ×2 (10:47→12:53)
[2023-02-03 12:00] VITALS: BP 167/93; PULSE 74; RESP 20; TEMP 36.6; O2SAT 95
[2023-02-03 15:54] VITALS: BP 161/82; PULSE 82; RESP 17; TEMP 37.2; O2SAT 94
--- NOTE | 2023-02-03 18:33 | PM.PNNEP ---
Subjective Subjective Date of Service: 02/03/23 Interval history: Seen and examined, events noted Physical Exam Vital Signs: Vital Signs: Last Vital Signs Temp 99.0 F 02/03/23 15:54 Pulse 82 02/03/23 15:54 Resp 17 02/03/23 15:54 BP 161/82 H 02/03/23 15:54 Pulse Ox 94 02/03/23 15:54 O2 Del Method Nasal [place] 02/03/23 15:54 BMI result Body Mass Index 37.9 Const: Other: General: AO X 3, no acute distress Resp: CTA bilateral CVS: S1,S2,RRR GI: +BS, NT, no distention Skin: No rash Neuro: motor grossly intact Psych: appropriate affect General: healthy appearing, comfortable, no acute distress, alert and awake Nutritional Appearance: well nourished Orientation/consciousness: patient oriented x3 HEENT: Other: Large area of ecchymosis/erythema with tenderness to right side of face over the zygomatic arch and maxillary bone. Eyes: Eyelids: Yes eyelids normal Conjunctivae: conjunctivae normal Sclerae: sclerae normal Corneas: corneas normal Pupils: Equal, round and reactive pupils present EOM: EOMs intact bilaterally Neck: Other: Right lateral neck tenderness without vertebral tenderness Neck: Yes full ROM Chest: Chest palpation & inspection: normal inspection of the chest and no crepitus Resp: Effort & Inspection: normal respiratory effort, able to speak in complete sentences, no audible wheezes and not labored Auscultation: clear to auscultation bilaterally Cardio: Rate: regular rate Rhythm: regular rhythm GI: Inspection: No distended, Yes Abdominal panniculus present and Yes obesity Palpation (GI): Soft to palpation, not firm, nontender, no guarding and not rigid Auscultation: normoactive bowel sounds Skin: Other: Multiple areas of ecchymoses to the bilateral lower extremities to just above the knees. Some chronic discoloration to the medial aspect the lower extremities bilaterally General skin exam: dry skin, ecchymosis, no erythema and no eschars Neuro: General: patient oriented x3 Cranial nerves: Yes CN's II-XII intact bilaterally, Yes Equal, round and reactive pupils present and Yes Bilaterally intact EOM present Cognition (Neuro): normal cognition Extrem: Other: Moving all extremities well without any obvious deformities Objective Data Labs 02/02/23 05:05 02/03/23 07:53 Labs: Laboratory Results - last 24 hr 02/03/23 02/03/23 07:53 07:53 Sodium 140 Potassium 2.7 L D Chloride 103 Carbon Dioxide 30 H Anion Gap 10 L BUN 6 L Creatinine 0.65 Estim Creat Clear Calc 164.0 Estimated GFR > 60 Random Glucose 100 Calcium 7.7 L Magnesium 1.3 L* Total Creatine Kinase 4671 H Cancelled Procedures Date of Service Date of Service: 02/03/23 Assessment & Plan Assessment and plan (1) Opioid use disorder: Status: Acute (2) Rhabdomyolysis: Status: Acute Plan VALENTIN: resolved Rhabdo: resolving HypoK REC: replace K, d/c IVF will sign off, call prn Time Spent With Patient Time: Total time managing care of this patient today ____ minutes. Progress Note: Quality Stroke Does the patient have a stroke diagnosis?: No
[2023-02-03 20:24] VITALS: BP 162/73; PULSE 74; RESP 16; TEMP 36.3; O2SAT 97
[2023-02-03] MEDS: Sennosides 8.6 MG TABLET PO (21:35)
[2023-02-03] MEDS: QUEtiapine Fumarate 50 MG TABLET PO (21:35)
[2023-02-03] MEDS: Melatonin 3 MG TABLET 6 MG PO (21:36)
[2023-02-03 23:25] VITALS: BP 120/57; PULSE 73; RESP 16; TEMP 36.3; O2SAT 94
[2023-02-04] VITALS (9 sets, daily range): BP systolic 128–173; BP diastolic 59–98; PULSE 69–88; RESP 16–20; TEMP 36.4–36.9; O2SAT 93–96
[2023-02-04] MEDS: Acetaminophen 325 MG TABLET 650 MG PO ×2 (00:02→19:55)
[2023-02-04] MEDS: Levothyroxine Sodium 125 MCG TABLET PO (05:26)
[2023-02-04] MEDS: Omeprazole 20 MG CAPSULE.DR PO (05:26)
[2023-02-04] MEDS: Enoxaparin Sodium 40 MG/0.4 ML SYRINGE SUBCUT (05:26)
--- NOTE | 2023-02-04 07:00 | CA_ITS ---
Transthoracic Echocardiogram Patient (Last, First, Middle): Ken Wayne K Gender: Male Date of : 1970 Age: 53 Procedure Date: 02/04/2023 Procedure Type: Transthoracic Echocardiogram [place] [facility] [place]: 172.72 cm Weight: 112.95 kg BSA: 2.24 m2 Heart Rate: 73 bpm BP: 131 / 63 mmHg Kicking Machine Operator: SERGEI Referring MD: Ron Salinas MD Rehabilitation Counselor: Keagan Negro MD Symptoms: ? syncope Study Quality: Technically Difficult ECG Rhythm: Sinus Conclusions: - 1. Technically limited study despite use of contrast agent 2. Normal LV systolic function with LVEF of 60-65% with impaired relaxation filling pattern 3. Limited visualization of cardiac valves with normal cardiac valvular Dopplers Findings Procedure Information Contrast agent, definity, is being given per protocol without apparent complications. Left Ventricle Normal left ventricular size, thickness, and systolic function. The visually estimated ejection fraction is between 60-65%. Spectral Doppler is indicative of an impaired relaxation filling pattern. Right Ventricle Mildly increased right ventricular cavity size. There is normal right ventricular systolic function. Atria The left atrium was not well visualized. Interatrial shunt cannot be excluded. The right atrium was not well visualized. Aortic Valve The aortic valve was not well visualized. There is no aortic valve stenosis. There is no aortic valve regurgitation. Mitral Valve The mitral valve was not well visualized. There is trace mitral valve regurgitation. There is no mitral valve stenosis. Pulmonic Valve The pulmonic valve was not well visualized. Tricuspid Valve The tricuspid valve was not well visualized. Tricuspid regurgitation envelope is inadequate for calculation of right ventricular systolic pressure. Normal right atrial pressure. Great Vessels The aorta was not well visualized. The pulmonary artery was not well visualized. Venous The inferior vena cava is normal in size and collapses greater than 50% with inspiration. Pericardium/Pleural The pericardium was not well visualized. Measurements 2D Linear Measurements IVSd: 0.63 0.6-0.9/0.6-1.0 cm LVIDd: 4.35 3.9-5.3/4.2-5.9 cm LVIDd Index: 1.94 2.4-3.2/2.2-3.1 cm/m2 LVIDs: 3.01 2.0-3.6 cm LVPWd: 0.73 0.7-1.1 cm LA Diam: 3.90 2.7-3.8/3.0-4.0 cm LAIDs Index: 1.74 1.5-2.3 cm/m2 LV Mass: 108.11 67-162/88-224 g LV Mass Index: 48.26 43-95/49-115 g/m2 LVOT Diam: 2.00 3.0+(-)1.3 cm 2D Systolic Function EF 4C: 53.00 >55% EF 2C: 71.50 >55% EF BiP: 64.30 >55% Mitral Valve MV Pk E: 0.77 MV PK A: 0.72 MV Decel Time: 149.00 E/A: 1.10 E'Lateral: 9.79 E'Medial: 6.53 E/E' Med: 11.80 E/E' Lat: 7.90 PHT: 44.00 MVA PHT: 5.00 Decel [place]: 5.17 Aortic Valve AoV Pk Joel: 1.24 AoV Pk Grad: 6.00 NAY: 3.22 LVOT LVOT Pk Joel: 1.08 LVOT Mn Joel: 0.83 LVOT VTI: 0.23 LVOT Pk Grad: 5.00 LVOT Mn Grad: 3.00 LVOT Diam: 2.00 LVOT Area: 3.14 Diastolic Function MV Pk E: 0.77 MV Pk A: 0.72 E/A: 1.10 E'Medial: 6.53 E/E' Med: 11.80 E' Laterial: 9.79 E/E' Lat: 7.90 Right Ventricle TAPSE (mm): 18.60 TVS' Joel: 10.40 Tricuspid Valve RA Press: 3.00 Great Vessels Aorta Sinus of Valsalva: 3.00 2.0-3.5 cm Updated in Other Vendor System with Status of Final Keagan Negro MD electronically signed on 02/05/2023 1:59:44 PM with status of Final
[2023-02-04 07:34] LABS: Blood Urea Nitrogen 4 mg/dL (9-16); Calcium 8.4 mg/dL (8.4-10.2); Estimated Glomerular Filt Rate > 60; Glucose Random 113 mg/dL (60-115)
[2023-02-04 07:43] LABS: Anion Gap 10 (12-20); Carbon Dioxide 34 mmol/L (22-29); Chloride 98 mmol/L (96-108); Sodium 139 mmol/L (135-145)
[2023-02-04] MEDS: 0.9 % Sodium Chloride Flush 3 ML SYRINGE IVFLUSH ×3 (09:29→20:54)
[2023-02-04] MEDS: Fenofibrate 160 MG TABLET PO (09:29)
[2023-02-04] MEDS: Metoprolol Tartrate 50 MG TABLET PO ×2 (09:29→20:50)
[2023-02-04] MEDS: Multivitamin TABLET 1 TAB PO (09:29)
[2023-02-04] MEDS: Thiamine HCL 100 MG TABLET 500 MG PO (09:29)
[2023-02-04] MEDS: FLUoxetine HCl 20 MG CAPSULE 40 MG PO (09:29)
[2023-02-04 10:35] LABS: Magnesium 1.5 mg/dL (1.6-2.6)
[2023-02-04] MEDS: Magnesium Oxide 400 MG TABLET 800 MG PO (11:12)
[2023-02-04] MEDS: Potassium Chloride Packet 20 MEQ PACKET 40 MEQ PO (11:12)
[2023-02-04] MEDS: Potassium Chloride/H20 10 MEQ/100 ML PIGGYBACK 100 MEQ IV ×2 (11:23→12:25)
--- NOTE | 2023-02-04 13:45 | P.CNNE_ITS ---
History of Present Illness Data of Consult Service Date: 02/04/23 Primary Care Provider: Osmel Mcclure MD [facility] Reason for consult: syncope This is a 53-year-old male with h/o mood disorder, essential hypertension, alcohol use disorder, hypothyroidism who presents to the emergency department after a syncopal episode and being on the floor for an extended period with rhabdomyolysis. Patient states that about 22 hours prior to presentation, patient went to the bathroom.? He was feeling drowsy as he had just taken his Seroquel.? He does not remember when he passed out.? Unclear how long he was on the ground.? When he woke up, he was on the bathroom floor and had generalized body discomfort.? Patient does have a history of substance use disorder but states he quit in December.? Patient denies fever, chills, chest discomfort, palpitations, shortness of breath, abdominal pain, changes in urinary or bowel habits.? Patient stated that his mouth feels dry and he feels dehydrated. Review of Systems Constitutional: Constitutional: Denies body ache(s), Denies chills, Reports fatigue, Denies fever(s), Reports frequent falls, Reports headache(s), Reports lethargy, Reports malaise and Reports weight loss Eyes: Eyes: Denies blurry vision ENT: Reports dizziness, Reports facial pain, Reports headache(s) and Reports mouth pain Cardiovascular: Cardiovascular: Reports no additional cardiovascular complaints, Reports chest pain (Left chest wall pain), Reports syncope and Reports dyspnea Respiratory: Respiratory: Reports no additional respiratory complaints, Denies chest congestion, Denies cough, Denies pain with cough and Reports dyspnea Gastrointestinal: Gastrointestinal: Reports no additional gastrointestinal complaints, Denies abdominal pain, Denies nausea and Denies vomiting Musculoskeletal: Musculoskeletal: Reports back pain, Reports myalgias, Reports arthralgias, Reports muscle cramps and Reports muscle weakness Neurologic: Reports dizziness, Reports syncope, Reports frequent falls and Reports headache(s) Endocrine: Endocrine: Reports fatigue PMFSH Past Medical History Medical History Alcohol use disorder Hypertension Hypothyroidism Mood disorder Obesity Substance use disorder Family History Family History Father No problems noted. Mother No problems noted. Surgical History Surgical History No pertinent past surgical history Social History Social History Household Members: None Housing: Apartment Do you presently have visiting nurse or other home services: No Alcohol intake: former Patient Tobacco Use Status: Never used Tobacco e-Cigarette/Vaping Use: Never Used Second Hand Smoke Exposure: No service: No Current occupational status: employed Current occupational exposures/hazards: No Cognitive needs: No Hearing needs: No Vision needs: No Meds Allergies Allergy/AdvReac Type Severity Reaction Status Date / Time Fruit skins Allergy Unknown Unknown Uncoded 01/25/23 23:42 Active Medications: Current Medications Acetaminophen (Acetaminophen 325 Mg Tablet) 650 mg PO Q6H PRN PRN Reason: Pain, Mild (Pain Scale 1-3) Last Admin: 02/04/23 00:02 Dose: 650 mg Enoxaparin Sodium (Enoxaparin Sodium 40 Mg/0.4 Ml Syringe) 40 mg SUBCUT Q24H [facility] Last Admin: 02/04/23 05:26 Dose: 40 mg Fenofibrate (Fenofibrate 160 Mg Tablet) 160 mg PO DAILY [facility] Last Admin: 02/04/23 09:29 Dose: 160 mg Fluoxetine HCl (Fluoxetine Hcl 20 Mg Capsule) 40 mg PO DAILY [facility] Last Admin: 02/04/23 09:29 Dose: 40 mg Fluticasone Propionate (Fluticasone Propionate Nasal 16 Gm [place]) 1 spray NOSTRIL-B DAILY [facility] Last Admin: 02/04/23 09:31 Dose: Not Given Levothyroxine Sodium (Levothyroxine Sodium 125 Mcg Tablet) 125 mcg PO DAILY@0600 [facility] Last Admin: 02/04/23 05:26 Dose: 125 mcg Magnesium Oxide (Magnesium Oxide 400 Mg Tablet) 800 mg PO DAILY [facility] Last Admin: 02/04/23 11:12 Dose: 800 mg Melatonin (Melatonin 3 Mg Tablet) 6 mg PO BEDTIME PRN PRN Reason: Insomnia Last Admin: 02/03/23 21:36 Dose: 6 mg Metoprolol Tartrate (Metoprolol Tartrate 50 Mg Tablet) 50 mg PO BID [facility]; Protocol Last Admin: 02/04/23 09:29 Dose: 50 mg Multivitamins/Vitamin C (Multivitamin Tablet) 1 tab PO DAILY [facility] Last Admin: 02/04/23 09:29 Dose: 1 tab Omeprazole (Omeprazole 20 Mg Capsule.Dr) 20 mg PO DAILY@0630 [facility] Last Admin: 02/04/23 05:26 Dose: 20 mg Ondansetron HCl (Ondansetron Hcl 4 Mg/2 Ml Vial) 4 mg IVPUSH Q8H PRN PRN Reason: Nausea and Vomiting Last Admin: 02/03/23 16:30 Dose: 4 mg Pharmacy Consult (Consult Rx Perform Med Rec) 1 each MISCELLANE ONCE PRN PRN Reason: Consult order Quetiapine Fumarate (Quetiapine Fumarate 50 Mg Tablet) 50 mg PO BEDTIME [facility] Last Admin: 02/03/23 21:35 Dose: 50 mg Senna (Sennosides 8.6 Mg Tablet) 8.6 mg PO BEDTIME [facility] Last Admin: 02/03/23 21:35 Dose: 8.6 mg Sodium Chloride (0.9 % Sodium Chloride Flush 3 Ml Syringe) 3 ml IVFLUSH QSHIFT [facility] Last Admin: 02/04/23 09:29 Dose: 3 ml Thiamine HCl (Thiamine Hcl 100 Mg Tablet) 500 mg PO DAILY [facility] Last Admin: 02/04/23 09:29 Dose: 500 mg Tiotropium [place] (Tiotropium [place] 18 Mcg Cap.W.Dev) 1 puff INHALE RDAILY [facility] Last Admin: 02/04/23 08:25 Dose: 1 puff Home Medications Medication Instructions Recorded Confirmed Last Taken Type albuterol sulfate 90 mcg/actuation 2 puff PO Q4-6H PRN Bronchospasm 02/02/23 02/02/23 Unknown History aerosol inhaler (Ventolin HFA) clonazepam 1 mg tablet 1 mg PO BID-TID 02/02/23 02/02/23 Unknown History ibuprofen 800 mg tablet 800 mg PO TID PRN Pain 02/02/23 02/02/23 Unknown History sennosides 8.6 mg tablet (senna) 8.6 mg PO BEDTIME 02/02/23 02/02/23 Unknown History Physical Exam Vital Signs: Vital Signs: Last Vital Signs Temp 97.5 F 02/04/23 12:00 Pulse 88 02/04/23 12:00 Resp 20 02/04/23 12:00 BP 131/63 02/04/23 12:00 Pulse Ox 95 05/30/23 12:00 O2 Del Method Room Air 02/04/23 12:00 BMI result Body Mass Index 37.9 Const: Other: General: AO X 3, no acute distress Resp: CTA bilateral CVS: S1,S2,RRR GI: +BS, NT, no distention Skin: No rash Neuro: motor grossly intact Psych: appropriate affect General: healthy appearing, comfortable, no acute distress, alert and awake Nutritional Appearance: well nourished Orientation/consciousness: patient oriented x3 HEENT: Other: Large area of ecchymosis/erythema with tenderness to right side of face over the zygomatic arch and maxillary bone. Eyes: Eyelids: Yes eyelids normal Conjunctivae: conjunctivae normal Sclerae: sclerae normal Corneas: corneas normal Pupils: Equal, round and reactive pupils present EOM: EOMs intact bilaterally Neck: Other: Right lateral neck tenderness without vertebral tenderness Neck: Yes full ROM Chest: Chest palpation & inspection: normal inspection of the chest and no crepitus Resp: Effort & Inspection: normal respiratory effort, able to speak in complete sentences, no audible wheezes and not labored Auscultation: clear to auscultation bilaterally Cardio: Rate: regular rate Rhythm: regular rhythm GI: Inspection: No distended, Yes Abdominal panniculus present and Yes obesity Palpation (GI): Soft to palpation, not firm, nontender, no guarding and not rigid Auscultation: normoactive bowel sounds Skin: Other: Multiple areas of ecchymoses to the bilateral lower extremities to just above the knees. Some chronic discoloration to the medial aspect the lower extremities bilaterally General skin exam: dry skin, ecchymosis, no erythema and no eschars Neuro: Other: Non focal exam General: patient oriented x3 Cranial nerves: Yes CN's II-XII intact bilaterally, Yes Equal, round and reactive pupils present and Yes Bilaterally intact EOM present Cognition (Neuro): normal cognition Extrem: Other: Moving all extremities well without any obvious deformities Results Labs 02/02/23 05:05 02/04/23 06:42 Labs: BMP 02/04/23 06:42 Sodium 139 Potassium 3.0 L Chloride 98 Carbon Dioxide 34 H BUN 4 L Creatinine 0.65 Calcium 8.4 D Cardiac Enzymes 02/04/23 Range/Units 06:42 Total Creatine Kinase 2199 H (38-174) U/L Assessment and Plan (1) Opioid use disorder: Status: Acute Syncope versus medication/ ETOH overdos ewith prolonged unresponsiveness on the bathroom floor with rhabdomyolysis. Recom. EEG, Cardiac monitoring. Drug and alcohol counselling. Follow CPK and renal function. (2) Rhabdomyolysis: Status: Acute Plan VALENTIN: resolved Rhabdo: resolving HypoK REC: replace K, d/c IVF will sign off, call prn Time Spent With Patient Time: Total time managing care of this patient today ____ minutes. Procedures Date of Service Date of Service: 02/04/23
[2023-02-04] MEDS: Clotrimazole 1 % Cream 15 GM TUBE 1 APPL TOPICAL ×2 (15:05→20:51)
[2023-02-04] MEDS: Nystatin Powder 15 GM BOTTLE 1 APPL TOPICAL ×2 (15:05→20:51)
--- NOTE | 2023-02-04 16:13 | P.PNIM_ITS ---
Subjective Subjective Date of Service: 02/04/23 Interval History: ? was on the floor at home-unclear about passing out Review of Systems mental status improving Denies any chest pain or shortness of breath or abdominal pain or fever chills or muscle pain. Physical Exam Vital Signs: Vital Signs: Last Vital Signs Temp 98.5 F 02/04/23 15:02 Pulse 78 02/04/23 15:36 Resp 20 02/04/23 15:02 BP 160/81 H 02/04/23 15:36 Pulse Ox 96 02/04/23 15:02 O2 Del Method Room Air 02/04/23 15:02 BMI result Body Mass Index 37.9 General: AO X 3, no acute distress Resp:? CTA bilateral CVS: S1,S2,RRR GI: +BS, NT, no distention Skin: No rash Neuro:? motor grossly intact Psych: appropriate affect Objective Data Active Medications Acetaminophen (Acetaminophen 325 Mg Tablet) 650 mg PO Q6H PRN PRN Reason: Pain, Mild (Pain Scale 1-3) Last Admin: 02/04/23 00:02 Dose: 650 mg Documented By: TALIA Clotrimazole (Clotrimazole 1 % Cream 15 Gm Tube) 1 appl TOPICAL BID [facility]; Protocol Last Admin: 02/04/23 15:05 Dose: 1 appl Documented By: LILY Enoxaparin Sodium (Enoxaparin Sodium 40 Mg/0.4 Ml Syringe) 40 mg SUBCUT Q24H [facility] Last Admin: 02/04/23 05:26 Dose: 40 mg Documented By: TALIA Fenofibrate (Fenofibrate 160 Mg Tablet) 160 mg PO DAILY [facility] Last Admin: 02/04/23 09:29 Dose: 160 mg Documented By: LILY Fluoxetine HCl (Fluoxetine Hcl 20 Mg Capsule) 40 mg PO DAILY [facility] Last Admin: 02/04/23 09:29 Dose: 40 mg Documented By: LILY Fluticasone Propionate (Fluticasone Propionate Nasal 16 Gm [place]) 1 spray NOSTRIL-B DAILY [facility] Last Admin: 02/04/23 09:31 Dose: Not Given Documented By: LILY Non-Admin Reason: Pt refused; states ventilation is good Levothyroxine Sodium (Levothyroxine Sodium 125 Mcg Tablet) 125 mcg PO DAILY@0600 [facility] Last Admin: 02/04/23 05:26 Dose: 125 mcg Documented By: TALIA Magnesium Oxide (Magnesium Oxide 400 Mg Tablet) 800 mg PO DAILY [facility] Last Admin: 02/04/23 11:12 Dose: 800 mg Documented By: LILY Melatonin (Melatonin 3 Mg Tablet) 6 mg PO BEDTIME PRN PRN Reason: Insomnia Last Admin: 02/03/23 21:36 Dose: 6 mg Documented By: TALIA Metoprolol Tartrate (Metoprolol Tartrate 50 Mg Tablet) 50 mg PO BID [facility]; Protocol Last Admin: 02/04/23 09:29 Dose: 50 mg Documented By: LILY Multivitamins/Vitamin C (Multivitamin Tablet) 1 tab PO DAILY [facility] Last Admin: 02/04/23 09:29 Dose: 1 tab Documented By: LILY Nystatin (Nystatin Powder 15 Gm Bottle) 1 appl TOPICAL TID [facility]; Protocol Last Admin: 02/04/23 15:05 Dose: 1 appl Documented By: LILY Omeprazole (Omeprazole 20 Mg Capsule.Dr) 20 mg PO DAILY@0630 [facility] Last Admin: 02/04/23 05:26 Dose: 20 mg Documented By: TALIA Ondansetron HCl (Ondansetron Hcl 4 Mg/2 Ml Vial) 4 mg IVPUSH Q8H PRN PRN Reason: Nausea and Vomiting Last Admin: 02/03/23 16:30 Dose: 4 mg Documented By: RINA Pharmacy Consult (Consult Rx Perform Med Rec) 1 each MISCELLANE ONCE PRN PRN Reason: Consult order Quetiapine Fumarate (Quetiapine Fumarate 50 Mg Tablet) 50 mg PO BEDTIME [facility] Last Admin: 02/03/23 21:35 Dose: 50 mg Documented By: TALIA Senna (Sennosides 8.6 Mg Tablet) 8.6 mg PO BEDTIME [facility] Last Admin: 02/03/23 21:35 Dose: 8.6 mg Documented By: TALIA Sodium Chloride (0.9 % Sodium Chloride Flush 3 Ml Syringe) 3 ml IVFLUSH QSHIFT [facility] Last Admin: 02/04/23 15:06 Dose: 3 ml Documented By: LILY Thiamine HCl (Thiamine Hcl 100 Mg Tablet) 500 mg PO DAILY [facility] Last Admin: 02/04/23 09:29 Dose: 500 mg Documented By: LILY Tiotropium Solon (Tiotropium Solon 18 Mcg Cap.W.Dev) 1 puff INHALE RDAILY [facility] Last Admin: 02/04/23 08:25 Dose: 1 puff Documented By: ALECOVITALIA Labs 02/02/23 05:05 02/04/23 06:42 Labs: Laboratory Results - last 24 hr 02/04/23 02/04/23 06:42 06:42 Anion Gap 10 L Estim Creat Clear Calc 164.0 Estimated GFR > 60 Random Glucose 113 Calcium 8.4 D Magnesium 1.5 L Total Creatine Kinase 2199 H Assessment and Plan (1) Opioid use disorder: Status: Acute (2) Rhabdomyolysis: Status: Acute Plan 53-year-old male with pertinent history of mood disorder, essential hypertension, alcohol use disorder, hypothyroidism who presents to the emergency department for evaluation of generalized body ache. Possible syncope vs medication related prolonged unresponsiveness?: seen by neuro-added eeg moniter tele drug counciling( ua + for fentnyl), added echo also . Rhabdomyolysis due to prolonged imobilization from lying on the floor. CPK down to 4K from 32K with IVF, at this point stop IVF, correct K Acute toxic encephalopathy, he is presently lucid Hypokalemia--PO and IV K Acute kidney injury, creatine down to normal at 0.65 today, was 2.74 Reactive ,leukocytosis, no source of infection Essential hypertension. continue metorplol and resume, Chlorthalidon at discharge Alcohol use disorder. Continue thiamine. Hypothyroidism. On Synthroid. TSH is normal psych/mood desorder--See Psych consult. Stopping Trazadone, continue seroquel at HS at reduce dose of 50, melatonin for sleep DVT prophylaxis: Lovenox Cardiac diet Admit as inpatient and will require two night minimum hospital stay for IV fluid resuscitation and close monitoring of creatinine , workup for syncope. Time Spent With Patient Time: Total time managing care of this patient today ____ minutes. Quality Stroke Does the patient have a stroke diagnosis?: No VTE Prior VTE?: No VTE Risk Level:: Medical - moderate - high VTE Device Contraindication: Treatment Not Indicated VTE Drug Contraindication: N/A - Med Ordered
--- NOTE | 2023-02-04 16:47 | MHC.RECOVRN ---
This property underwriter met with patient after receiving addiciton consult. Patient was awake, laying on right side in dimly lit room. Patients UDS positive for fentanyl and opiates. This property underwriter reviewed JOSY hx with patient, patient denies substance use since 12/15/2022. Patient reports quit using ETOH and opiates 12/15/22. Patient reports went through withdrawal for a few weeks. Patient denied withdrawal s/s currently, pt denies sweating, nausea, vomitting, diarrhea, body aches, anxiety, gooseflesh, restlessness. Pt not visibly diaphoretic. This property underwriter offered MAT for cravings, patient declined states not interested in MAT. Patient states would be interested in a list of meetings and recovery supports. This property underwriter to return tomorrow at the bedside with recovery resources.
--- NOTE | 2023-02-04 20:10 | P.EN_ITS ---
Event Note Date of Service: 02/04/23 Event Note: Addiction consult placed Please see top spotter note from 02/04/23 Time Spent With Patient Time: Total time managing care of this patient today ____ minutes.
--- NOTE | 2023-02-04 20:10 | PM.EVENT ---
Event Note Date of Service: 02/04/23 Event Note: Addiction consult placed Please see dressage instructor note from 02/04/23 Time Spent With Patient Time: Total time managing care of this patient today ____ minutes.
[2023-02-04] MEDS: Sennosides 8.6 MG TABLET PO (20:50)
[2023-02-04] MEDS: QUEtiapine Fumarate 50 MG TABLET PO (20:51)
--- NOTE | 2023-02-05 | EEG_ITS ---
FINDINGS: Waking background activity consists of an 8 hertz moderate voltage posterior alpha frequency intermixed anteriorly with low voltage fast frequencies. Drowsiness is characterized by diffuse theta slowing in the 6 to 7 hertz range. Photic stimulation is without activation. No focal, lateralizing, or paroxysmal discharges were seen. IMPRESSION: This awake and drowsy EEG is within normal limits. MD BRYCE Veloz/CHRISTIANO / [phone]
[2023-02-05] MEDS: Enoxaparin Sodium 40 MG/0.4 ML SYRINGE SUBCUT (02:42)
[2023-02-05] MEDS: Acetaminophen 325 MG TABLET 650 MG PO (02:43)
[2023-02-05 03:06] VITALS: BP 143/84; PULSE 69; RESP 20; TEMP 37.1; O2SAT 96
[2023-02-05] MEDS: Omeprazole 20 MG CAPSULE.DR PO (05:38)
[2023-02-05] MEDS: Levothyroxine Sodium 125 MCG TABLET PO (05:38)
[2023-02-05 07:06] LABS: Anion Gap 7 (12-20); Blood Urea Nitrogen 5 mg/dL (9-16); Calcium 8.7 mg/dL (8.4-10.2); Carbon Dioxide 35 mmol/L (22-29); Chloride 99 mmol/L (96-108); Estimated Glomerular Filt Rate > 60; Glucose Random 116 mg/dL (60-115); Potassium 3.2 mmol/L (3.3-5.1); Sodium 138 mmol/L (135-145)
[2023-02-05 07:18] VITALS: BP 124/77; PULSE 80; RESP 20; TEMP 36.4; O2SAT 95
[2023-02-05 07:28] VITALS: PULSE 80; RESP 20; O2SAT 95
[2023-02-05 08:46] VITALS: PULSE 80
[2023-02-05] MEDS: Fenofibrate 160 MG TABLET PO (08:57)
[2023-02-05] MEDS: FLUoxetine HCl 20 MG CAPSULE 40 MG PO (08:57)
[2023-02-05] MEDS: Metoprolol Tartrate 50 MG TABLET PO (08:57)
[2023-02-05] MEDS: Thiamine HCL 100 MG TABLET 500 MG PO (08:57)
[2023-02-05] MEDS: Magnesium Oxide 400 MG TABLET 800 MG PO (08:57)
[2023-02-05] MEDS: Multivitamin TABLET 1 TAB PO (08:58)
[2023-02-05] MEDS: 0.9 % Sodium Chloride Flush 3 ML SYRINGE IVFLUSH (08:58)
[2023-02-05] MEDS: Clotrimazole 1 % Cream 15 GM TUBE 1 APPL TOPICAL (08:59)
[2023-02-05] MEDS: Nystatin Powder 15 GM BOTTLE 1 APPL TOPICAL (08:59)
[2023-02-05] MEDS: Fluticasone Propionate Nasal 16 GM SPRAY 1 SPRAY NOSTRIL-B (09:00)
[2023-02-05] MEDS: Magnesium Sulfate/D5W 1 GM/100 ML PIGGYBACK IV (09:06)
--- NOTE | 2023-02-05 10:23 | MHC.CM.PN ---
Per ROUNDS discussion, Patient needs a Psych Eval; Patient wants to go home and CM will follow.
[2023-02-05] MEDS: Ibuprofen 400 MG TABLET PO (10:45)
--- NOTE | 2023-02-05 15:40 | P.DS_ITS ---
DS: Providers Provider Date of Service: 02/05/23 Date of admission: 02/02/23 03:17 Date of discharge: 02/05/23 Primary care physician: Osmel Mcclure MD Consults: 02/02/23 03:33 Consult to Psychiatry Routine Consulting Provider: Psych Covering Reason for consultation: optimize antipsychotics in this pt with bipolar 02/02/23 07:31 Consult to Nephrology Routine Consulting Provider: Antonio Morton Reason for consultation: severe rhabdomylosis Has provider been notified: No 02/04/23 12:11 Consult to Neurology Routine Consulting Provider: [facility] Reason for consultation: syncope unclear etiology 02/04/23 16:15 Addiction Medicine Routine Consulting Provider: Addiction Covering Reason for consultation: drug use Has provider been notified: No Attending physician on discharge: Ron Salinas Discharging clinician: Ron Salinas DS: Diagnosis Discharge Diagnosis (1) Opioid use disorder: Status: Acute (2) Rhabdomyolysis: Status: Acute (3) Syncope: Status: Acute DS: Summary Hospital Course Hospital Course: 53-year-old male with pertinent history of mood disorder, essential hypertension, alcohol use disorder, hypothyroidism who presents to the emergency department for evaluation of generalized body ache.? Patient states that about 22 hours prior to presentation, patient went to the bathroom.? He was feeling drowsy as he had just taken his Seroquel.? He does not remember when he passed out.? Unclear how long he was on the ground.? When he woke up, he was on the bathroom floor and had generalized body discomfort.? Patient does have a history of substance use disorder but states he quit in December.? Patient denies fever, chills, chest discomfort, palpitations, shortness of breath, abdominal pain, changes in urinary or bowel habits.? Patient stated that his mouth feels dry and he feels dehydrated. In the emergency department, serum creatinine and CPK found to be elevated. Hospital course: Patient was admitted because was found on the floor and had generalized body aches: Patient was found to have rhabdomyolysis likely traumatic: Received IV fluid and CPK seems to be improving significantly.Patient said he Seroquel and afterwards he felt drowsy-? Unclear how he fell: So syncope workup including echo was done seems fine, telemetry seems fine, seen by Neurology:Possible syncope vs medication? related prolonged unresponsiveness. Urine drug screen positive for fentanyl. eeg done pending . In addition patient was seen by psych-and recommended to avoid benzodiazepine, Seroquel. He also does not want to take trazodone because makes him groggy. Patient did not want to wait for his EEG result and further recommendations, refuses to take electrolytes medications, wants to leave against medical advise- is alert oriented x3 the risks discussed in with him in detail length he including .Patient was strongly advised to get well hydrated, p.o. intake, electrolytic medications sent to pharmacy, and strongly advised go and get treated in nearest emergency room. staff was present during the conversations. VALENTIN seems to be improved significantly with IV hydration. Toxic metabolic encephalopathy seems to be improved significantly with improvement VALENTIN, rhabdomyolysis, electrolyte repletion currently patient is as his baseline mental status. Assessment and plan coordination time spent 50 minute. For Time Spent with Patient Time attestation: Total time managing care of this patient today ____ minutes. Discharge coordination time: Greater than 30 minutes Quality: Safe Use of Opioids Does Pt have an Active Cancer Diagnosis on the Problem List?: No Quality: Stroke Does the patient have a stroke diagnosis?: No Physical Exam Vital Signs: Vital Signs: Last Vital Signs Temp 97.5 F 02/05/23 07:18 Pulse 80 02/05/23 08:46 Resp 20 02/05/23 07:28 BP 124/77 02/05/23 07:18 Pulse Ox 95 02/05/23 07:18 O2 Del Method Room Air 02/05/23 07:18 BMI result Body Mass Index 37.9 patient refused. DS: Data Data Completed and Pending Labs on day of discharge: Laboratory Results - last 24 hr 02/05/23 06:37 Sodium 138 Potassium 3.2 L Chloride 99 Carbon Dioxide 35 H Anion Gap 7 L BUN 5 L Creatinine 0.65 Estim Creat Clear Calc 164.0 Estimated GFR > 60 Random Glucose 116 H Calcium 8.7 Imaging Chest x-ray: Radiologist's impression: ITS Impressions Cervical Spine CT 02/02/23 01:05 IMPRESSION: 1. No acute intracranial findings. 2. No acute maxillofacial fracture. 3. No acute fracture or malalignment of the cervical spine. Face CT 02/02/23 01:05 IMPRESSION: 1. No acute intracranial findings. 2. No acute maxillofacial fracture. 3. No acute fracture or malalignment of the cervical spine. Head CT 02/02/23 01:05 IMPRESSION: 1. No acute intracranial findings. 2. No acute maxillofacial fracture. 3. No acute fracture or malalignment of the cervical spine. Ribs X-Ray 02/02/23 01:20 IMPRESSION: * No rib fractures. * Streaky opacity at left lung base favors subsegmental atelectasis and/or pleural parenchymal scarring. Discharge Plan Discharge Anticipated Discharge Date/Time: 02/05/23 15:24 Patient Disposition: Left Against Medical Advice Discharge Diagnosis: Rhabdomyolysis, valentin, hypokalemia and hypomagnesemia. Referrals: Osmel Mcclure MD [Primary Care Provider] - 1 Week Discharge Medications: New potassium chloride 10 mEq capsule, extended release 10 meq PO DAILY Qty: 4 0RF magnesium oxide 400 mg magnesium tablet 400 mg PO BID Qty: 10 0RF nystatin 100,000 unit/gram powder 1 appl topical BID Qty: 60 0RF Continued fluticasone propionate 50 mcg/actuation spray,suspension 1 spray intranasal DAILY Qty: 9.9 8RF Rx Instructions: administer into each nostril chlorthalidone 25 mg tablet 25 mg PO DAILY Qty: 90 7RF fluoxetine 40 mg capsule 40 mg PO QAM Qty: 90 7RF simvastatin 40 mg tablet 40 mg PO DAILY Qty: 90 6RF fenofibrate 160 mg tablet 160 mg PO DAILY Qty: 90 7RF metoprolol tartrate 50 mg tablet 50 mg PO BID Qty: 60 8RF levothyroxine 125 mcg tablet 125 mcg PO DAILY Qty: 90 2RF omeprazole 20 mg capsule,delayed release(DR/EC) 20 mg PO DAILY Qty: 90 0RF sennosides [senna] 8.6 mg tablet 8.6 mg PO BEDTIME ibuprofen 800 mg tablet 800 mg PO TID PRN (Reason: Pain) albuterol sulfate [Ventolin HFA] 90 mcg/actuation HFA aerosol inhaler 2 puff PO Q4-6H PRN (Reason: Bronchospasm) ondansetron 4 mg tablet,disintegrating 4 mg PO Q6-8H PRN (Reason: nausea and vomiting) Qty: 14 0RF thiamine HCl (vitamin B1) 500 mg tablet 500 mg PO DAILY Qty: 30 0RF multivitamin Tablet 1 tab PO DAILY Qty: 30 0RF Spiriva Respimat 2.5 mcg/actuation mist 2 puff inhalation DAILY Qty: 4 7RF Discontinued quetiapine 100 mg tablet 100 mg PO BEDTIME Qty: 90 7RF trazodone 100 mg tablet 100 mg PO BEDTIME PRN (Reason: sleep) Qty: 30 2RF clonazepam 1 mg tablet 1 mg PO BID-TID Discharge Orders: Discharge Order (Routine); Ordered 02/05/23 Ordered By: Ron Salinas Diet: Advance to usual diet Activity on Discharge: As tolerated Care Plan Goals: Patient was admitted because was found on the floor and had generalized body aches: Patient was found to have rhabdomyolysis likely traumatic: Received IV fluid and CPK seems to be improving significantly.Patient said he Seroquel and afterwards he felt drowsy-? Unclear how he fell: So syncope workup including echo was done seems fine, telemetry seems fine, seen by Neurology:Possible syncope vs medication? related prolonged unresponsiveness. Urine drug screen positive for fentanyl. eeg done pending . In addition patient was seen by psych-and recommended to avoid benzodiazepine, Seroquel. He also does not want to take trazodone because makes him groggy. Patient did not want to wait for his EEG result and further recommendations, refuses to take electrolytes medications, wants to leave against medical advise- is alert oriented x3 the risks discussed in with him in detail length he including .Patient was strongly advised to get well hydrated, p.o. intake, electrolytic medications sent to pharmacy, and strongly advised go and get treated in nearest emergency room. staff was present during the conversations. VALENTIN seems to be improved significantly with IV hydration. Toxic metabolic encephalopathy seems to be improved significantly with improvement VALENTIN, rhabdomyolysis, electrolyte repletion currently patient is as his baseline mental status. Health Concerns: As above. Plan of Treatment: As above. Assessment: As above.
--- NOTE | 2023-02-05 15:41 | MHC.CM.PN ---
Patient has left AMA.
--- NOTE | 2023-02-05 17:58 | P.CDIM_ITS ---
PROVIDER RESPONSE TEXT: To clarify, the appropriate diagnosis supported by the clinical indicators: Overweight QUERY TEXT: PHYSICIAN'S DOCUMENTATION REQUEST Date of Query: 02/05/2023 09:03 AM EDT Patient Name: Ken Wayne Admit Date: 02/02/2023 Dear Ron Salinas, A review of the medical record indicates additional documentation may be needed. Please review below and update the documentation accordingly. Clinical Indicators: Nursing notes: Height and weight - BMI 37.9 Obese class II 113kg If possible, please provide an associated diagnosis related to the abnormal BMI, such as: Overweight Obesity Due to excess calories Obesity Due to other cause Specify the other cause Unable to determine Other (explain)Clinically unable to determine (explain)Thank you, Ally Salter, CCS, CDIS Use of terms such as suspected, likely, concern for, or probable (associated with a specific diagnosi s that is being evaluated, monitored, or treated as if it exists) are acceptable and can be coded in the inpatient se tting, when documented at the time of discharge. Please use your independent medical judgment in providing your response. THIS QUERY IS PART OF THE PERMANENT MEDICAL RECORD
== END 2023-02-05 16:15 | disposition left against medical advice (07) | DRG 351 ==
LOC: HO.ED 02:12 → HO.EDOVER 03:23 → HO.IMC 03:41
PROVIDERS: Internal Medicine; Physician Assistant; Admitting Provider Student in an Organized Health Care Education/Training Program; Emergency Provider Emergency Medicine; PCP Internal Medicine; Visit Provider Internal Medicine
DX: T79.6XXA Traumatic ischemia of muscle, initial encounter (principal); N17.9 Acute kidney failure, unspecified; E87.1 Hypo-osmolality and hyponatremia; W19.XXXA Unspecified fall, initial encounter; E03.9 Hypothyroidism, unspecified; F10.20 Alcohol dependence, uncomplicated; E83.42 Hypomagnesemia; E87.6 Hypokalemia; E66.3 Overweight; Z68.37 Body mass index [BMI] 37.0-37.9, adult; Z20.822 Contact with and (suspected) exposure to COVID-19; Z79.51 Long term (current) use of inhaled steroids; Z79.890 Hormone replacement therapy; Z79.899 Other long term (current) drug therapy
CPT/HCPCS: 36415; 70450; 70486; 71101; 72125; 80048; 80053; 80307; 81001; 82550; 83690; 83735; 84443; 84484; 85007; 85025; 85027; 85610; 85730; 87635; 93005; 93306; 94640; 95816; 97162; 99285; J1650; J2405; J3475; Q9957

== ENCOUNTER 2023-02-11 14:42 | Outpatient (REF) | payer OTHER, SELFPAY | END 2023-02-11 14:43 | disposition home or self-care (01) | LOC: HO.LAB 14:42 | PROVIDERS: PCP Internal Medicine; Visit Provider Internal Medicine | DX: M62.82 Rhabdomyolysis (principal) | CPT/HCPCS: 36415; 82550 ==

== ENCOUNTER → 2023-02-18 12:32 | Outpatient (BNVA) | payer OTHER, SELFPAY | PROVIDERS: PCP Internal Medicine; Visit Provider Nurse Practitioner | DX: R10.9 Unspecified abdominal pain (principal); N17.9 Acute kidney failure, unspecified; M62.82 Rhabdomyolysis; F10.20 Alcohol dependence, uncomplicated | CPT/HCPCS: 99202 ==

== ENCOUNTER 2023-02-24 15:15 | Outpatient (REF) | payer OTHER, SELFPAY ==
--- NOTE | ~2023-02-24 | XR_ITS ---
EXAMINATION: XR SHOULDER, LEFT CLINICAL INFORMATION: Left shoulder sprain. COMPARISON: 05/10/2020 TECHNIQUE: AP external rotation, Grashey, scapular Y, and axillary views of the left shoulder. FINDINGS: Glenohumeral and acromioclavicular alignment is anatomic with normal joint space. No displaced fracture or dislocation. No abnormal soft tissue calcifications. XR/XR shoulder LT min 2V IMPRESSION: No acute abnormality.
== END 2023-02-24 15:16 | disposition home or self-care (01) ==
LOC: HO.HMGCX 15:15
PROVIDERS: Visit Provider Internal Medicine
DX: S43.402A Unspecified sprain of left shoulder joint, initial encounter (principal)
CPT/HCPCS: 73030

== ENCOUNTER 2023-06-20 04:05 | Emergency (ER) | payer OTHER, SELFPAY ==
[2023-06-20 04:10] VITALS: BP 150/98; PULSE 78; RESP 18; TEMP 36.2; O2SAT 95; BMI 36.5
--- NOTE | 2023-06-20 04:42 | ED_ITS ---
HPI - Dental/Oral General Chief complaint: Dental/Oral Stated complaint: Pain in mouth, left side Time Seen by Provider: 06/20/23 04:37 Source: patient Mode of arrival: ambulatory Limitations: no limitations History of Present Illness HPI Narrative: Patient with multiple dental cavities partial extraction of left lower 1st molar few weeks ago complaining of pain in that area spreading to the left ear patient is supposed to see oral surgeon but unable to see no fever no chills Related Data Home Medications Medication Instructions Recorded Confirmed ibuprofen 800 mg tablet 800 mg PO TID PRN Pain 02/02/23 02/24/23 potassium chloride 20 mEq meq PO 02/18/23 tablet,extended release(part/cryst) (Klor-Con M) Previous Rx's Medication Instructions Recorded fenofibrate 160 mg tablet 160 mg PO DAILY #90 tabs 06/14/22 simvastatin 40 mg tablet 40 mg PO DAILY #90 tabs 06/14/22 quetiapine 100 mg tablet 100 mg PO BEDTIME #90 tabs 10/11/22 multivitamin 1 tab PO DAILY #30 tabs 01/11/23 ondansetron 4 mg disintegrating 4 mg PO Q6-8H PRN nausea and 01/11/23 tablet vomiting #14 tabs thiamine HCl (vitamin B1) 500 mg 500 mg PO DAILY #30 tabs 01/11/23 tablet tiotropium bromide 2.5 2 puff inhalation DAILY #4 grams 01/15/23 mcg/actuation mist for inhalation (Spiriva Respimat) clotrimazole-betamethasone 1 1 appl topical BID 2 weeks #45 02/11/23 %-0.05 % topical cream grams albuterol sulfate 90 mcg/actuation 2 puff PO Q4-6H PRN for wheezing 02/17/23 aerosol inhaler (Ventolin HFA) #18 ea fluticasone propionate 50 1 spray intranasal DAILY #9.9 mL 02/17/23 mcg/actuation nasal spray,suspension fluconazole 200 mg tablet 200 mg PO DAILY 1 day #1 tab 02/18/23 (Diflucan) nystatin 100,000 unit/gram topical 3 appl topical QID #60 grams 02/18/23 cream sodium,potassium,mag sulfates 17.5 480 ml PO .COMPLEX #354 mL 02/18/23 gram-3.13 gram-1.6 gram oral soln (Suprep Bowel Prep Kit) metoprolol tartrate 50 mg tablet 50 mg PO BID #60 tabs 03/24/23 azithromycin 250 mg tablet See Rx Instructions PO .COMPLEX #6 04/01/23 tabs methylprednisolone 4 mg tablets in See Rx Instructions PO PER PKG DIR 04/01/23 a dose pack (Medrol (Konrad)) #21 ea clonazepam 1 mg tablet 1 mg PO BID-TID #60 tabs 04/24/23 allopurinol 300 mg tablet 300 mg PO DAILY #30 tabs 05/15/23 chlorthalidone 25 mg tablet 25 mg PO DAILY #90 tabs 05/15/23 fluoxetine 40 mg capsule 40 mg PO QAM #90 caps 05/15/23 levothyroxine 125 mcg tablet 125 mcg PO DAILY #90 tabs 05/15/23 omeprazole 20 mg capsule,delayed 20 mg PO DAILY #90 caps 05/15/23 release sennosides 8.6 mg tablet (senna) 8.6 mg PO BEDTIME #90 tabs 05/15/23 trazodone 100 mg tablet 100 mg PO BEDTIME PRN sleep #30 05/15/23 tabs clindamycin HCl 300 mg capsule 300 mg PO TID #30 caps 06/20/23 tramadol 50 mg tablet 50 mg PO Q6H PRN pain #20 tabs 06/20/23 Allergies Allergy/AdvReac Type Severity Reaction Status Date / Time No Known Drug Allergies Allergy Unknown none Verified 02/24/23 15:10 Fruit skins Allergy Unknown Unknown Uncoded 02/24/23 15:10 Review of Systems 2 Review of Systems: Yes all other systems are reviewed and are negative PMFSH Past Medical History Medical History Alcohol use disorder Mood disorder Substance use disorder Hypothyroidism Hypertension Obesity Surgical History No pertinent past surgical history Family History Family History Father No problems noted. Mother No problems noted. Social History Social History Household Members: None Housing: Apartment Do you presently have visiting nurse or other home services: No Alcohol intake: former Patient Tobacco Use Status: Former Tobacco user Years Smoked: 8 years e-Cigarette/Vaping Use: Never Used Second Hand Smoke Exposure: No Advance Directives: No Advance Directives Information Provided: No service: No Current occupational status: employed Current occupational exposures/hazards: No Cognitive needs: No Hearing needs: No Vision needs: No Physical Exam 2 Vital Signs: Vital Signs: Last Vital Signs Temp 97.1 F 06/20/23 04:10 Pulse 78 06/20/23 04:10 Resp 18 06/20/23 04:10 BP 150/98 H 06/20/23 04:10 Pulse Ox 95 06/20/23 04:10 O2 Del Method Room Air 06/20/23 04:10 BMI result Body Mass Index 36.5 Appearance: Alert. Oriented X3. No acute distress. ENT: Pharynx normal. Oral Mucosa moist tympanic membrane intact normal color bilateral Neck: Normal inspection. Neck supple. CVS: Normal heart rate and rhythm. Pulses normal. Respiratory: No respiratory distress. Equal air entry bilateral, Abdomen: Soft and nontender. Skin: Skin warm and dry. Normal skin color. Normal skin turgor. Neuro: Oriented X 3. HEENT: Teeth image: 1. Partially extracted broken tooth no fluctuance swelling Medications Administered Discontinued Medications Generic Name Dose Route Start Last Admin Trade Name Freq PRN Reason Stop Dose Admin Clindamycin HCl 300 mg 06/20/23 04:38 06/20/23 04:47 Clindamycin Hcl 300 Mg Capsule PO 06/20/23 04:39 300 mg ONCE ONE Administration Oxycodone HCl 10 mg 06/20/23 04:38 06/20/23 04:46 Oxycodone Hcl Immed Release 5 Mg Tablet PO 06/20/23 04:39 10 mg ONCE ONE Administration Medical Decision Making Differential Diagnosis Differential Diagnoses: The differential diagnosis associated with the presentation includes Dental caries/dental abscess Discharge Plan Discharge Clinical Impression: Tooth caries Patient Disposition: Home, Self-Care Instructions: Toothache (ED) Additional Instructions: Take antibiotic and pain medication as prescribed Follow-up with oral surgeon Prescriptions: New clindamycin HCl 300 mg capsule 300 mg PO TID Qty: 30 0RF tramadol 50 mg tablet 50 mg PO Q6H PRN (Reason: pain) Qty: 20 0RF No Action simvastatin 40 mg tablet 40 mg PO DAILY Qty: 90 6RF fenofibrate 160 mg tablet 160 mg PO DAILY Qty: 90 7RF quetiapine 100 mg tablet 100 mg PO BEDTIME Qty: 90 7RF albuterol sulfate [Ventolin HFA] 90 mcg/actuation HFA aerosol inhaler 2 puff PO Q4-6H PRN (Reason: for wheezing) Qty: 18 3RF fluticasone propionate 50 mcg/actuation spray,suspension 1 spray intranasal DAILY Qty: 9.9 8RF Rx Instructions: administer into each nostril metoprolol tartrate 50 mg tablet 50 mg PO BID Qty: 60 8RF methylprednisolone [Medrol (Konrad)] 4 mg tablets,dose pack See Rx Instructions PO PER PKG DIR Qty: 21 0RF Rx Instructions: PO PER PKG DIR azithromycin 250 mg tablet See Rx Instructions PO .COMPLEX Qty: 6 0RF Rx Instructions: take 500 mg today (day 1), then 250 mg for 4 days (days 2-5) PO clonazepam 1 mg tablet 1 mg PO BID-TID Qty: 60 3RF fluoxetine 40 mg capsule 40 mg PO QAM Qty: 90 7RF levothyroxine 125 mcg tablet 125 mcg PO DAILY Qty: 90 2RF allopurinol 300 mg tablet 300 mg PO DAILY Qty: 30 3RF sennosides [senna] 8.6 mg tablet 8.6 mg PO BEDTIME Qty: 90 0RF omeprazole 20 mg capsule,delayed release(DR/EC) 20 mg PO DAILY Qty: 90 0RF chlorthalidone 25 mg tablet 25 mg PO DAILY Qty: 90 7RF trazodone 100 mg tablet 100 mg PO BEDTIME PRN (Reason: sleep) Qty: 30 2RF ibuprofen 800 mg tablet 800 mg PO TID PRN (Reason: Pain) ondansetron 4 mg tablet,disintegrating 4 mg PO Q6-8H PRN (Reason: nausea and vomiting) Qty: 14 0RF thiamine HCl (vitamin B1) 500 mg tablet 500 mg PO DAILY Qty: 30 0RF multivitamin Tablet 1 tab PO DAILY Qty: 30 0RF clotrimazole-betamethasone 1-0.05 % cream 1 appl topical BID 14 Days Qty: 45 0RF Hold Instructions: Doctor's Order Spiriva Respimat 2.5 mcg/actuation mist 2 puff inhalation DAILY Qty: 4 7RF potassium chloride [Klor-Con M20] 20 mEq tablet,ER particles/crystals PO nystatin 100,000 unit/gram cream 3 appl topical QID Qty: 60 3RF sodium,potassium,mag sulfates [Suprep Bowel Prep Kit] 17.5-3.13-1.6 gram recon soln 480 ml PO .COMPLEX Qty: 354 0RF Rx Instructions: 480 mL orally; fluconazole [Diflucan] 200 mg tablet 200 mg PO DAILY 1 Days Qty: 1 0RF Interventions: ED Discharge Assessment Last Done: 06/20/23 04:52 Discharge Date/Time: 06/20/23 04:56
[2023-06-20] MEDS: oxyCODONE HCl Immed Release 5 MG TABLET 10 MG PO (04:46)
[2023-06-20] MEDS: Clindamycin HCL 300 MG CAPSULE PO (04:47)
== END 2023-06-20 04:56 | disposition home or self-care (01) ==
LOC: HO.ED 04:53
PROVIDERS: Emergency Provider Internal Medicine; PCP Internal Medicine
DX: K02.9 Dental caries, unspecified (principal); I10 Essential (primary) hypertension; Z87.891 Personal history of nicotine dependence; Z79.899 Other long term (current) drug therapy
CPT/HCPCS: 99283; 99284

== ENCOUNTER 2023-09-09 13:46 | Outpatient (AMB) | payer OTHER, SELFPAY ==
[2023-09-09 13:47] VITALS: BP 146/98; PULSE 76; O2SAT 97; BMI 34.2
--- NOTE | 2023-09-09 13:47 | A.OFFPC_ITS ---
Vital Signs 09/09/23 13:47 Height 5 ft 8 in Weight 225 lb BMI 34.2 BP 146/98 H Blood Pressure Location Lt brachial Position Sitting Pulse 76 Pulse Source Pulse Oximeter Pulse Oximetry (%) 97 Oxygen Delivery Method Room Air Intake Visit Reasons: Annual Exam Director Fraud Required: No Fire Technician: Not Required per policy Accompanied by: Self / Same As Patient Allergies No Known Drug Allergies Allergy (Unknown, Verified 09/09/23 13:48) none Fruit skins Allergy (Unknown, Uncoded 09/09/23 13:48) Unknown Medication List - Last Reconciled 09/09/23 by Osmel Mcclure MD albuterol sulfate 90 mcg/actuation (Ventolin HFA) 2 puffs PO Q4-6H PRN allopurinol 300 mg PO DAILY amoxicillin 250 mg PO Q8H chlorthalidone 25 mg PO DAILY clindamycin HCl 300 mg PO TID clonazepam 1 mg PO BID-TID clotrimazole-betamethasone 1-0.05 % 1 appl topical BID 2 weeks fenofibrate 160 mg PO DAILY fluconazole (Diflucan) 200 mg PO DAILY 1 day fluoxetine 40 mg PO QAM fluticasone propionate 50 mcg/actuation 1 spray intranasal DAILY ibuprofen 800 mg PO TID PRN levothyroxine 125 mcg PO DAILY methylprednisolone (Medrol (Konrad)) PO PER PKG DIR metoprolol tartrate 50 mg PO BID multivitamin 1 tab PO DAILY nystatin 3 appl topical QID omeprazole 20 mg PO DAILY ondansetron 4 mg PO Q6-8H PRN potassium chloride ER (Klor-Con M) mEq PO quetiapine 100 mg PO BEDTIME sennosides (senna) 8.6 mg PO BEDTIME simvastatin 40 mg PO DAILY sodium,potassium,mag sulfates 17.5-3.13-1.6 gram (Suprep Bowel Prep Kit) 480 mL orally; thiamine HCl (vitamin B1) 500 mg PO DAILY tiotropium bromide 2.5 mcg/actuation (Spiriva Respimat) 2 puffs inhalation DAILY tramadol 50 mg PO Q6H PRN trazodone 100 mg PO BEDTIME PRN Tobacco use date assessed: 12/30/22 Dental Screening Dental Screen Date: 09/09/23 Did you have a dental visit in the last 12 months?: Yes Did you have a dental problem in the last 6 months where you did not have access to dental care?: No Was dental information given to patient?: Patient has dentist HPI Annual Exam HPI Details Asthma and HTN; stable; due fpor labs [facility] Medical History Alcohol use disorder Mood disorder Substance use disorder Hypothyroidism Hypertension Obesity Surgical History No pertinent past surgical history Family History Father No problems noted. Mother No problems noted. Social History Household Members: None Housing: Apartment Do you presently have visiting nurse or other home services: No Alcohol intake: former Patient Tobacco Use Status: Former Tobacco user Years Smoked: 8 years e-Cigarette/Vaping Use: Never Used Second Hand Smoke Exposure: No service: No Current occupational status: employed Current occupational exposures/hazards: No Cognitive needs: No Hearing needs: No Vision needs: No Questionnaire PHQ-9 Over the last 2 weeks, how often have you been bothered by any of the following problems? 1. Little interest or pleasure in doing things: several days 2. Feeling down, depressed, or hopeless: several days 3. Trouble falling or staying asleep, or sleeping too much: not at all 4. Feeling tired or having little energy: not at all 5. Poor appetite or overeating: not at all 6. Feeling bad about yourself - or that you are a failure or have let yourself or your family down: not at all 7. Trouble concentrating on things, such as reading the newspaper or watching television: not at all 8. Moving or speaking so slowly that other people could have noticed. Or the opposite - being so fidgety or restless that you have been moving around a lot more than usual: not at all 9. Thoughts that you would be better off or of hurting yourself in some way: not at all Total score: 2 Depression Screening Interpretation: Negative Depression Screening Done: Yes 41375 - PHQ-9 Billing: Yes Source: Developed by Drs. Hema Crouch, Lou Monreal, Elmer Darnell and colleagues, with an educational tobias from [employer]. Thrive Questionnaire Date Thrive assessed: 09/09/23 I am a: Patient What is your living situation today?: I have a steady place to live Within the past 12 months, did the food you bought not last and you didn't have the money to get more?: Never true Within the past 12 months, did you worry whether your food would run out before you got money to buy more?: Never true Do you have trouble paying for medicines?: No Do you have trouble getting transportation to medical appointments?: No Do you have trouble paying your heating and electricity bill?: No Do you have trouble taking care of your child, family member or friend?: No Do you have trouble with day-to-day activities such as bathing, preparing meals, shopping, managing finances, etc.?: No Are you currently unemployed and looking for a job?: No Are you interested in more education?: No Please select the resources that you would like help with: None AUDIT C Alcohol Use Questionnaire (AUDIT-C) 1. How often do you have a drink containing alcohol?: 2-3 times a week 2. How many drinks containing alcohol do you have on a typical day when you are drinking?: 1 or 2 3. How often do you have six or more drinks on one occasion?: Never Total Score: 3 Score Reviewed/Action Taken: Yes JAMISON-7 AMB Questionnaire JAMISON-7 Date JAMISON - 7 assessed: 09/09/23 Feeling nervous, anxious, or on edge: 0 = Not at all Not being able to stop or control worryin = Not at all Worrying too much about different things: 0 = Not at all Trouble relaxin = Not at all Being so restless that it is hard to sit still: 0 = Not at all Becoming easily annoyed or irritable: 0 = Not at all Feeling afraid as if something awful might happen: 0 = Not at all Total JAMISON-7 score (0-4 normal; 5-9 mild; 10-14 moderate; 15-21 severe): 0 Source: Developed by Drs. Hema Crouch, Lou Monreal, Elmer Darnell and colleagues, with an educational tobias from [employer]. JAMISON-7 Assessment Billing JAMISON-7 Assessment Tool: JAMISON-7 Assessment 59140 Review of Systems Const Denies chills, Denies fatigue, Denies headache(s) and Denies weight loss Eyes Denies change in vision, Denies diplopia and Denies eye pain ENT Denies vertigo, Denies dizziness, Denies headache(s) and Denies nasal discharge Card Denies chest pain, Denies rapid heart rate and Denies dyspnea on exertion Resp Denies chest congestion, Denies cough, Denies pain with cough and Denies dyspnea on exertion GI Denies abdominal pain, Denies hematochezia and Denies change in bowel habits Musc Denies myalgias, Denies arthralgias and Denies joint swelling Skin/Breast Denies lesions and Denies unusual bruising Neuro Denies vertigo, Denies dizziness, Denies headache(s) and Denies focal weakness Endo Denies fatigue Physical exam (Primary Care) Vital Signs: Last Vital Signs Pulse 76 09/09/23 13:47 BP 146/98 H 09/09/23 13:47 Pulse Ox 97 09/09/23 13:47 Oxygen Delivery Method Room Air 09/09/23 13:47 BMI result Body Mass Index 34.2 Tobacco/Smoking Status: Tobacco use Status Tobacco use date assessed 12/30/22 09/09/23 13:49 Patient Tobacco Use Status Former Tobacco user 09/09/23 13:49 e-Cigarette/Vaping Use Never Used 09/09/23 13:49 PHQ-9: PHQ-9 Score PHQ-9: Total score 2 09/09/23 14:08 Depression Screening Interpretation: Negative Thrive Assessment: Date of Thrive Assessment Date Thrive assessed 09/09/23 09/09/23 13:49 Const General: cooperative, healthy appearing and no acute distress Orientation/consciousness: oriented to person, oriented to place and oriented to time [facility] Head: Yes normal to inspection, Yes normocephalic and Yes atraumatic Mouth: Normal oral and palatal mucosa present and tongue normal Throat: Yes posterior oropharynx normal and Yes uvula midline Eyes General: appearance normal, both eyes and all related structures Neck Neck: Yes normal visual inspection, Yes full ROM and Yes no lymphadenopathy Thyroid: Thyroid normal Carotids: normal carotid upstroke Chest Chest palpation & inspection: normal inspection of the chest Resp Effort & Inspection: normal respiratory effort and able to speak in complete sentences Auscultation: clear to auscultation bilaterally Cardio Jugular venous distension: no JVD Palpation: normal PMI Rate: regular rate Rhythm: regular rhythm Heart sounds: S1 normal heart sound present and S2 normal heart sound present GI Inspection: Yes normal to inspection Palpation (GI): Soft to palpation and No hepatosplenomegaly present Auscultation: normal bowel sounds General: Yes no CVA tenderness Back/Spine/Pelvis Back: no CVA tenderness Skin General skin exam: no rashes or lesions noted Neuro General: oriented to person, oriented to place and oriented to time Extrem General: Yes normal to inspection and Yes full ROM Office Procedures Flu Questionnaire Does the patient have a severe egg allergy?: No Does the patient have severe life threatening allergies?: No Does the patient have a fever or illness today?: No Has the patient ever had Guillain-Harbinger Syndrome?: No Has the patient ever had any past reaction to a flu shot?: No Immunizations flu vacc [id number] 6mos up(PF) 60 mcg(15 mcgx4)/0.5 mL IM syringe Performing Provider: Osmel Mcclure MD Performing Location: [facility] Administered by: OLU Holly on 09/09/23 14:08 Dose Route Admin Location Dispensed Lot Number Expiration Date NDC Vibratory Pile Driver 0.5 mL IM Left Deltoid 0.5 mL [id number] 03/07/24 [id number] Clean PET VIS Given Date VIS Provided VIS Publication Date 09/09/23 Single Vaccine 21 Eligibility Eligibility Date Funding Source Not [facility] Eligible 09/09/23 Private Assessment and Plan Assessment & Plan (1) Physical exam: Code(s): Z00.00 - Encounter for general adult medical examination without abnormal findings Plan: labs (2) Hypertension: Code(s): I10 - Essential (primary) hypertension Plan: stable; same rx (3) Asthma-COPD overlap syndrome: Code(s): J44.9 - Chronic obstructive pulmonary disease, unspecified Plan: stable; same rx Orders: Orders Lipid Panel Today E78.5 - Hyperlipidemia, unspecified Thyroid Stimulating Hormone Today E03.9 - Hypothyroidism, unspecified Complete Blood Count Auto Diff Today D64.9 - Anemia, unspecified Comprehensive [place]. Panel Fast Today N28.9 - Disorder of kidney and ureter, unspecified Influenza [id number] Immunization Today Z23 - Encounter for immunization Medications: New amoxicillin 250 mg PO Q8H 30 caps 0RF Refilled clonazepam 1 mg PO BID-TID 90 tabs 3RF Coding Level of Care Code Est Pt Prev Care 40-64y(03703) Diagnoses Physical exam Z00.00 Hypertension I10 Asthma-COPD overlap syndrome J44.9 Additional Codes JAMISON-7 Assessment Billing - JAMISON-7 Assessment Tool: JAMISON-7 Assessment [id number] ([id number])
== END 2023-09-09 14:10 | disposition home or self-care (01) ==
PROVIDERS: Visit Provider Internal Medicine
DX: Z00.00 Encounter for general adult medical examination without abnormal findings (principal); I10 Essential (primary) hypertension; J44.9 Chronic obstructive pulmonary disease, unspecified; Z23 Encounter for immunization
CPT/HCPCS: 90471; 90686; 99396

== ENCOUNTER 2023-12-24 10:47 | Outpatient (REF) | payer OTHER, SELFPAY ==
[2023-12-24 11:00] LABS: MANUAL DIFF FLAG NO
[2023-12-24 11:05] LABS: Basophils Percent Auto 0.8 % (0-2); Eosinophils Absolute Auto 0.3 X10*3/uL (0.0-0.4); Hemoglobin 14.5 g/dl (14.0-18.0); Imm Gran Abs Auto 0.02 X10*3/uL (0.00-0.03); Imm Gran Pct Auto 0.4 % (0.0-0.4); Lymphocytes Absolute Auto 1.3 X10*3/uL (1.2-4.9); Lymphocytes Percent Auto 26.2 % (20-40); Mean Corpuscular HGB Conc 34.5 g/dl (31.0-36.0); Mean Corpuscular Volume 92.7 fL (80.0-98.0); Mean Platelet Volume 10.1 fL (9.4-12.4); Monocytes Absolute Auto 0.4 X10*3/uL (0.1-1.2); Monocytes Percent Auto 8.7 % (2-11); Neutrophils Absolute Auto 2.8 x10*3/uL (2.0-8.3); Neutrophils Percent Auto 56.9 % (45-73); Platelet Count 203 X10*3/uL (160-400); Red Blood Count 4.53 X10*6/uL (4.60-5.80); Red Cell Distribution Width 12.7 % (11.0-16.0); White Blood Count 4.8 X10*3/uL (4.8-10.8)
[2023-12-24 12:03] LABS: Alanine Aminotransferase 12 U/L (0-40); Albumin Level 3.3 g/dL (3.5-5.0); Alkaline Phosphatase 79 U/L (39-117); Anion Gap 10 (12-20); Aspartate Amino Transferase 24 U/L (5-37); Bilirubin Total 0.3 mg/dL (0.0-1.0); Blood Urea Nitrogen 8 mg/dL (9-16); Calcium 8.4 mg/dL (8.4-10.2); Carbon Dioxide 30 mmol/L (22-29); Chloride 103 mmol/L (96-108); Cholesterol 264 mg/dL (<200); Estimated Glomerular Filt Rate > 60; Glucose Fasting 114 mg/dL (60-99); HDL Cholesterol 42 mg/dL (>40); Potassium 3.2 mmol/L (3.3-5.1); Sodium 140 mmol/L (135-145); Total Protein 6.5 g/dL (6.5-8.0); Triglycerides 430 mg/dL (<150)
[2023-12-24 12:08] LABS: Thyroid Stimulating Hormone 30.75 uIU/mL (0.32-4.0)
== END 2023-12-24 10:48 | disposition home or self-care (01) ==
LOC: HO.LAB 10:47
PROVIDERS: PCP Internal Medicine; Visit Provider Internal Medicine
DX: E78.5 Hyperlipidemia, unspecified (principal); E03.9 Hypothyroidism, unspecified; N28.9 Disorder of kidney and ureter, unspecified; D64.9 Anemia, unspecified
CPT/HCPCS: 36415; 80053; 80061; 84443; 85025

== ENCOUNTER 2023-12-25 14:27 | Outpatient (AMB) | payer OTHER, SELFPAY ==
--- NOTE | 2023-12-25 14:31 | A.OFFPC_ITS ---
Vital Signs 12/25/23 14:32 Height 5 ft 8 in Weight 221 lb BMI 33.6 BP 134/92 H Blood Pressure Location Lt brachial Position Sitting Pulse 77 Pulse Source Pulse Oximeter Pulse Oximetry (%) 96 Oxygen Delivery Method Room Air Intake Visit Reasons: 3 month f/u Solar Consultant Required: No Allergies No Known Drug Allergies Allergy (Unknown, Verified 12/25/23 14:35) none Fruit skins Allergy (Unknown, Uncoded 12/25/23 14:35) Unknown Tobacco use date assessed: 12/25/23 Dental Screening Dental Screen Date: 12/25/23 HPI 3 month f/u HPI Details hypothyroidism; stopped rx on his own a few month's ago and TSH 30 PFSH Medical History Alcohol use disorder Mood disorder Substance use disorder Hypothyroidism Hypertension Obesity Surgical History No pertinent past surgical history Family History Father No problems noted. Mother No problems noted. Social History Household Members: None Housing: Apartment Do you presently have visiting nurse or other home services: No Alcohol intake: former Patient Tobacco Use Status: Former Tobacco user Years Smoked: 8 years e-Cigarette/Vaping Use: Never Used Second Hand Smoke Exposure: No service: No Current occupational status: employed Current occupational exposures/hazards: No Cognitive needs: No Hearing needs: No Vision needs: No Questionnaire Thrive Questionnaire Date Thrive assessed: 12/25/23 I am a: Patient What is your living situation today?: I have a steady place to live Within the past 12 months, did the food you bought not last and you didn't have the money to get more?: Never true Within the past 12 months, did you worry whether your food would run out before you got money to buy more?: Never true Do you have trouble paying for medicines?: No Do you have trouble getting transportation to medical appointments?: No Do you have trouble paying your heating and electricity bill?: No Do you have trouble taking care of your child, family member or friend?: No Do you have trouble with day-to-day activities such as bathing, preparing meals, shopping, managing finances, etc.?: No Are you currently unemployed and looking for a job?: No Are you interested in more education?: No Please select the resources that you would like help with: None Currently or been in a relationship where the following occur: no concerns reported THRIVE Score: 0 AUDIT C Alcohol Use Questionnaire (AUDIT-C) 1. How often do you have a drink containing alcohol?: 2-3 times a week 2. How many drinks containing alcohol do you have on a typical day when you are drinking?: 1 or 2 3. How often do you have six or more drinks on one occasion?: Never Total Score: 3 Score Reviewed/Action Taken: Yes JAMISON-7 AMB Questionnaire JAMISON-7 Date JAMISON - 7 assessed: 09/09/23 Source: Developed by Drs. Hema Crouch, Lou Monreal, Elmer Darnell and colleagues, with an educational tobias from [employer]. Review of Systems Const Denies chills, Denies headache(s) and Denies weight loss ENT Denies headache(s) Card Denies chest pain, Denies syncope, Denies irregular heart rhythm and Denies dyspnea Resp Denies chest congestion, Denies cough and Denies dyspnea GI Denies abdominal pain, Denies change in stool character, Denies nausea and Denies vomiting Musc Denies deformity and Denies joint swelling Neuro Denies syncope and Denies headache(s) Physical exam (Primary Care) Vital Signs: Last Vital Signs Pulse 77 12/25/23 14:32 BP 134/92 H 12/25/23 14:32 Pulse Ox 96 12/25/23 14:32 Oxygen Delivery Method Room Air 12/25/23 14:32 BMI result Body Mass Index 33.6 Tobacco/Smoking Status: Tobacco use Status Tobacco use date assessed 12/25/23 12/25/23 14:33 Patient Tobacco Use Status Former Tobacco user 12/25/23 14:33 e-Cigarette/Vaping Use Never Used 12/25/23 14:33 Thrive Assessment: Date of Thrive Assessment Date Thrive assessed 12/25/23 12/25/23 14:33 Currently or been in a relationship where the following occur: no concerns reported Const General: cooperative, comfortable, no acute distress and alert Neck Neck: Yes no lymphadenopathy Thyroid: Thyroid normal Resp Effort & Inspection: normal respiratory effort Auscultation: clear to auscultation bilaterally Percussion: percussion normal Cardio Jugular venous distension: no JVD Palpation: normal PMI Rate: regular rate Rhythm: regular rhythm Heart sounds: S1 normal heart sound present and S2 normal heart sound present GI Inspection: Yes normal to inspection Palpation (GI): No hepatosplenomegaly present Skin General skin exam: no rashes or lesions noted Extrem General: Yes no clubbing, cyanosis or edema Assessment and Plan Assessment & Plan (1) Hypothyroidism: Code(s): E03.9 - Hypothyroidism, unspecified Plan: restart rx; check 30 days Orders: Orders Thyroid Stimulating Hormone 12/25/23 Z13.29 - Encounter for screening for other suspected endocrine disorder Coding Level of Care Code Est Pt Level 3 (33905) Diagnoses Hypothyroidism E03.9
[2023-12-25 14:32] VITALS: BP 134/92; PULSE 77; O2SAT 96; BMI 33.6
== END 2023-12-25 14:55 | disposition home or self-care (01) ==
PROVIDERS: PCP Internal Medicine; Visit Provider Internal Medicine
DX: E03.9 Hypothyroidism, unspecified (principal)
CPT/HCPCS: 99213

== ENCOUNTER 2024-01-02 14:15 | Outpatient (AMB) | payer OTHER, SELFPAY ==
--- NOTE | 2024-01-02 14:16 | A.OFFPC_ITS ---
Vital Signs 01/02/24 14:21 Height 5 ft 8 in Weight 221 lb 2 oz BMI 33.6 BP 132/70 Blood Pressure Location Lt brachial Position Sitting Pulse 65 Pulse Source Pulse Oximeter Pulse Oximetry (%) 97 Oxygen Delivery Method Room Air Intake Visit Reasons: Pre- Op Dental Intake Note: Patient is here for a Pre-op for Two teeth exaction scheduled with provider Mr Tee Guerra (Maxillofacial & Implant surgery) on unknown . 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 Accompanied by: Self / Same As Patient Allergies No Known Drug Allergies Allergy (Unknown, Verified 01/02/24 14:21) none Fruit skins Allergy (Unknown, Uncoded 01/02/24 14:21) Unknown Medication List - Last Reconciled 01/05/24 by Osmel Mcclure MD albuterol sulfate 90 mcg/actuation (Ventolin HFA) 2 puffs PO Q4-6H PRN allopurinol 300 mg PO DAILY chlorthalidone 25 mg PO DAILY clonazepam 1 mg PO BID-TID clotrimazole-betamethasone 1-0.05 % 1 appl topical BID 2 weeks fenofibrate 160 mg PO DAILY fluoxetine 40 mg PO QAM fluticasone propionate 50 mcg/actuation 1 spray intranasal DAILY ibuprofen 800 mg PO TID PRN levothyroxine 125 mcg PO DAILY metoprolol tartrate 50 mg PO BID multivitamin 1 tab PO DAILY nystatin 3 appl topical QID omeprazole 20 mg PO DAILY potassium chloride ER (Klor-Con M) mEq PO quetiapine 100 mg PO BEDTIME sennosides (senna) 8.6 mg PO BEDTIME simvastatin 40 mg PO DAILY sodium,potassium,mag sulfates 17.5-3.13-1.6 gram (Suprep Bowel Prep Kit) 480 mL orally; thiamine HCl (vitamin B1) 500 mg PO DAILY tiotropium bromide 2.5 mcg/actuation (Spiriva Respimat) 2 puffs inhalation DAILY trazodone 100 mg PO BEDTIME PRN Tobacco use date assessed: 01/02/24 Dental Screening Dental Screen Date: 12/25/23 HPI Pre- Op Dental HPI Details having wisdom teeth extracted; has hypertension, hypothyroidism, asthma, gout, hyperlipidemia and depression; no history of CAD [facility] Medical History Alcohol use disorder Mood disorder Substance use disorder Hypothyroidism Hypertension Obesity Surgical History No pertinent past surgical history Family History Father No problems noted. Mother No problems noted. Social History Household Members: None Housing: Apartment Do you presently have visiting nurse or other home services: No Alcohol intake: former Patient Tobacco Use Status: Former Tobacco user Years Smoked: 8 years e-Cigarette/Vaping Use: Never Used Second Hand Smoke Exposure: No service: No Current occupational status: employed Current occupational exposures/hazards: No Cognitive needs: No Hearing needs: No Vision needs: No Questionnaire Thrive Questionnaire Date Thrive assessed: 12/25/23 JAMISON-7 AMB Questionnaire JAMISON-7 Date JAMISON - 7 assessed: 09/09/23 Source: Developed by Drs. Hema Crouch, Lou Monreal, Elmer Darnell and colleagues, with an educational tobias from [employer]. Review of Systems Const Denies chills, Denies fatigue, Denies headache(s) and Denies weight loss Eyes Denies change in vision, Denies diplopia and Denies eye pain ENT Denies vertigo, Denies dizziness, Denies headache(s) and Denies nasal discharge Card Denies chest pain, Denies rapid heart rate and Denies dyspnea on exertion Resp Denies chest congestion, Denies cough, Denies pain with cough and Denies dyspnea on exertion GI Denies abdominal pain, Denies hematochezia and Denies change in bowel habits Musc Denies myalgias, Denies arthralgias and Denies joint swelling Skin/Breast Denies lesions and Denies unusual bruising Neuro Denies vertigo, Denies dizziness, Denies headache(s) and Denies focal weakness Endo Denies fatigue Physical exam (Primary Care) Vital Signs: Last Vital Signs Pulse 65 01/02/24 14:21 BP 132/70 01/02/24 14:21 Pulse Ox 97 01/02/24 14:21 Oxygen Delivery Method Room Air 01/02/24 14:21 BMI result Body Mass Index 33.6 Tobacco/Smoking Status: Tobacco use Status Tobacco use date assessed 01/02/24 01/02/24 14:29 Patient Tobacco Use Status Former Tobacco user 01/02/24 14:29 e-Cigarette/Vaping Use Never Used 01/02/24 14:29 Thrive Assessment: Date of Thrive Assessment Date Thrive assessed 12/25/23 01/02/24 14:29 Const General: cooperative, healthy appearing and no acute distress Orientation/consciousness: oriented to person, oriented to place and oriented to time HENMT Head: Yes normal to inspection, Yes normocephalic and Yes atraumatic Mouth: Normal oral and palatal mucosa present and tongue normal Throat: Yes posterior oropharynx normal and Yes uvula midline Eyes General: appearance normal, both eyes and all related structures Neck Neck: Yes normal visual inspection, Yes full ROM and Yes no lymphadenopathy Thyroid: Thyroid normal Carotids: normal carotid upstroke Chest Chest palpation & inspection: normal inspection of the chest Resp Effort & Inspection: normal respiratory effort and able to speak in complete sentences Auscultation: clear to auscultation bilaterally Cardio Jugular venous distension: no JVD Palpation: normal PMI Rate: regular rate Rhythm: regular rhythm Heart sounds: S1 normal heart sound present and S2 normal heart sound present GI Inspection: Yes normal to inspection Palpation (GI): Soft to palpation and No hepatosplenomegaly present Auscultation: normal bowel sounds General: Yes no CVA tenderness Back/Spine/Pelvis Back: no CVA tenderness Skin General skin exam: no rashes or lesions noted Neuro General: oriented to person, oriented to place and oriented to time Extrem General: Yes normal to inspection and Yes full ROM Assessment and Plan Assessment & Plan (1) Pre-op exam: Code(s): Z01.818 - Encounter for other preprocedural examination Plan: low risk of cardiovascular complications; cleared for surgery (2) Asthma-COPD overlap syndrome: Code(s): J44.9 - Chronic obstructive pulmonary disease, unspecified Plan: stable (3) High cholesterol: Code(s): E78.00 - Pure hypercholesterolemia, unspecified Plan: stable (4) Hypothyroidism: Code(s): E03.9 - Hypothyroidism, unspecified Plan: stable (5) Hypertension: Code(s): I10 - Essential (primary) hypertension Plan: stable Coding Level of Care Code Est Pt Level 4 (02444) Diagnoses Pre-op exam Z01.818 Asthma-COPD overlap syndrome J44.9 High cholesterol E78.00 Hypothyroidism E03.9 Hypertension I10
[2024-01-02 14:21] VITALS: BP 132/70; PULSE 65; O2SAT 97; BMI 33.6
== END 2024-01-02 14:47 | disposition home or self-care (01) ==
PROVIDERS: PCP Internal Medicine; Visit Provider Internal Medicine
DX: J44.9 Chronic obstructive pulmonary disease, unspecified (principal); Z01.818 Encounter for other preprocedural examination; E78.00 Pure hypercholesterolemia, unspecified; E03.9 Hypothyroidism, unspecified; I10 Essential (primary) hypertension
CPT/HCPCS: 99214

== ENCOUNTER 2024-03-15 11:29 | Outpatient (AMB) | payer OTHER, SELFPAY ==
[2024-03-15 11:30] VITALS: BP 150/90; PULSE 76; O2SAT 96; BMI 32.4
--- NOTE | 2024-03-15 11:30 | MHC.PC.OV ---
Vital Signs 03/15/24 11:30 Height 5 ft 8 in Weight 213 lb BMI 32.4 BP 150/90 H Blood Pressure Location Lt brachial Position Sitting Pulse 76 Pulse Source Pulse Oximeter Pulse Oximetry (%) 96 Oxygen Delivery Method Room Air Intake Visit Reasons: HTN,discuss pt Mechanical Oxidizer: Not Required per policy Accompanied by: Self / Same As Patient Allergies No Known Drug Allergies Allergy (Unknown, Verified 03/15/24 11:31) none Fruit skins Allergy (Unknown, Uncoded 03/15/24 11:31) Unknown Medication List - Last Reconciled 03/16/24 by Osmel Mcclure MD albuterol sulfate 90 mcg/actuation (Ventolin HFA) 2 puffs PO Q4-6H PRN allopurinol 300 mg PO DAILY chlorthalidone 25 mg PO DAILY clonazepam 1 mg PO BID-TID clotrimazole-betamethasone 1-0.05 % 1 appl topical BID 2 weeks fenofibrate 160 mg PO DAILY fluoxetine 40 mg PO QAM fluticasone propionate 50 mcg/actuation 1 spray intranasal DAILY ibuprofen 800 mg PO TID PRN levothyroxine 125 mcg PO DAILY metoprolol tartrate 50 mg PO BID multivitamin 1 tab PO DAILY nystatin 3 appl topical QID omeprazole 20 mg PO DAILY potassium chloride ER (Klor-Con M) mEq PO quetiapine 100 mg PO BEDTIME sennosides (senna) 8.6 mg PO BEDTIME simvastatin 40 mg PO DAILY sodium,potassium,mag sulfates 17.5-3.13-1.6 gram (Suprep Bowel Prep Kit) 480 mL orally; thiamine HCl (vitamin B1) 500 mg PO DAILY tiotropium bromide 2.5 mcg/actuation (Spiriva Respimat) 2 puffs inhalation DAILY trazodone 100 mg PO BEDTIME PRN Tobacco use date assessed: 01/02/24 Dental Screening Dental Screen Date: 12/25/23 HPI HTN,discuss pt HPI Details HTN on rx; compliant [facility] Medical History Alcohol use disorder Mood disorder Substance use disorder Hypothyroidism Hypertension Obesity Surgical History No pertinent past surgical history Family History Father No problems noted. Mother No problems noted. Social History Household Members: None Housing: Apartment Do you presently have visiting nurse or other home services: No Alcohol intake: former Patient Tobacco Use Status: Former Tobacco user Years Smoked: 8 years e-Cigarette/Vaping Use: Never Used Second Hand Smoke Exposure: No service: No Current occupational status: employed Current occupational exposures/hazards: No Cognitive needs: No Hearing needs: No Vision needs: No Questionnaire Thrive Questionnaire Date Thrive assessed: 12/25/23 JAMISON-7 AMB Questionnaire JAMISON-7 Date JAMISON - 7 assessed: 09/09/23 Source: Developed by Drs. Hema Crouch, Lou Monreal, Elmer Darnell and colleagues, with an educational tobias from [employer]. Review of Systems Const Denies chills, Denies headache(s) and Denies weight loss ENT Denies headache(s) Card Denies chest pain, Denies syncope, Denies irregular heart rhythm and Denies dyspnea Resp Denies chest congestion, Denies cough and Denies dyspnea GI Denies abdominal pain, Denies change in stool character, Denies nausea and Denies vomiting Musc Denies deformity and Denies joint swelling Neuro Denies syncope and Denies headache(s) Physical exam (Primary Care) Vital Signs: Last Vital Signs Pulse 76 03/15/24 11:30 BP 150/90 H 03/15/24 11:30 Pulse Ox 96 03/15/24 11:30 Oxygen Delivery Method Room Air 03/15/24 11:30 BMI result Body Mass Index 32.4 Tobacco/Smoking Status: Tobacco use Status Tobacco use date assessed 01/02/24 03/15/24 11:34 Patient Tobacco Use Status Former Tobacco user 03/15/24 11:34 e-Cigarette/Vaping Use Never Used 03/15/24 11:34 Thrive Assessment: Date of Thrive Assessment Date Thrive assessed 12/25/23 03/15/24 11:34 Const General: cooperative, comfortable, no acute distress and alert Neck Neck: Yes no lymphadenopathy Thyroid: Thyroid normal Resp Effort & Inspection: normal respiratory effort Auscultation: clear to auscultation bilaterally Percussion: percussion normal Cardio Jugular venous distension: no JVD Palpation: normal PMI Rate: regular rate Rhythm: regular rhythm Heart sounds: S1 normal heart sound present and S2 normal heart sound present GI Inspection: Yes normal to inspection Palpation (GI): No hepatosplenomegaly present Skin General skin exam: no rashes or lesions noted Extrem General: Yes no clubbing, cyanosis or edema Assessment and Plan Assessment & Plan (1) Hypertension: Code(s): I10 - Essential (primary) hypertension Plan: stable; same rx Orders: Orders XR shoulder LT min 2V 03/15/24 M25.519 - Pain in unspecified shoulder XR cervical spine 2V 03/15/24 M54.2 - Cervicalgia Complete Blood Count Auto Diff 03/15/24 Z13.0 - Encounter for screening for diseases of the blood and blood-forming organs and certain disorders involving the immune mechanism Comprehensive [place]. Panel Fast 03/15/24 Z13.9 - Encounter for screening, unspecified Lipid Panel 03/15/24 Z13.220 - Encounter for screening for lipoid disorders Thyroid Stimulating Hormone 03/15/24 Z13.29 - Encounter for screening for other suspected endocrine disorder Referrals Neurology Referral S06.0XAA - Concussion with loss of consciousness status unknown, initial encounter Coding Level of Care Code Est Pt Level 3 (61818) Diagnoses Hypertension I10
== END 2024-03-15 12:02 | disposition home or self-care (01) ==
PROVIDERS: PCP Internal Medicine; Visit Provider Internal Medicine
DX: I10 Essential (primary) hypertension (principal)
CPT/HCPCS: 99213

== ENCOUNTER 2024-04-01 13:37 | Outpatient (REF) | payer OTHER, SELFPAY ==
--- NOTE | ~2024-04-01 | XR_ITS ---
EXAMINATION: XR CERVICAL SPINE CLINICAL INFORMATION: Cervicalgia. COMPARISON: CT cervical spine dated 02/02/2023. TECHNIQUE: AP, lateral, swimmer's, and open-mouth views of the cervical spine. FINDINGS: There are no prevertebral soft tissue or bony abnormalities demonstrated. No compression fractures or subluxations are identified. Alignment is maintained at the atlanto-axial articulation. The disc spaces are preserved. No endplate changes are seen. The prevertebral soft tissues are normal. The foramina are patent. XR/XR cervical spine 2V IMPRESSION: Unremarkable examination.
--- NOTE | ~2024-04-01 | XR_ITS ---
EXAMINATION: XR SHOULDER, LEFT CLINICAL INFORMATION: Fall 2 months ago with persistent left shoulder pain. COMPARISON: Left shoulder radiographs dated 02/24/2023. TECHNIQUE: AP external rotation, Grashey, scapular Y, and axillary views of the left shoulder. FINDINGS: The bones and soft tissues are normal. No fracture. Glenohumeral and acromioclavicular alignment is anatomic with normal joint space. No abnormal soft tissue calcifications. XR/XR shoulder LT min 2V IMPRESSION: Unremarkable examination.
[2024-04-01 13:55] LABS: MANUAL DIFF FLAG NO
[2024-04-01 14:34] LABS: Basophils Absolute Auto 0.1 X10*3/uL (0.0-0.2); Eosinophils Absolute Auto 0.3 X10*3/uL (0.0-0.4); Eosinophils Percent Auto 3.9 % (0-4); Hematocrit 46.5 % (42.0-52.0); Hemoglobin 16.2 g/dl (14.0-18.0); Imm Gran Abs Auto 0.03 X10*3/uL (0.00-0.03); Imm Gran Pct Auto 0.4 % (0.0-0.4); Lymphocytes Absolute Auto 1.8 X10*3/uL (1.2-4.9); Lymphocytes Percent Auto 21.9 % (20-40); Mean Corpuscular HGB Conc 34.8 g/dl (31.0-36.0); Mean Corpuscular Hemoglobin 31.8 pg (27.0-33.0); Mean Corpuscular Volume 91.4 fL (80.0-98.0); Mean Platelet Volume 12.5 fL (9.4-12.4); Monocytes Absolute Auto 0.8 X10*3/uL (0.1-1.2); Monocytes Percent Auto 9.2 % (2-11); Neutrophils Absolute Auto 5.3 x10*3/uL (2.0-8.3); Neutrophils Percent Auto 63.6 % (45-73); Platelet Count 210 X10*3/uL (160-400); Red Blood Count 5.09 X10*6/uL (4.60-5.80); Red Cell Distribution Width 12.1 % (11.0-16.0); White Blood Count 8.3 X10*3/uL (4.8-10.8)
[2024-04-01 15:12] LABS: Alanine Aminotransferase 30 U/L (0-40); Albumin Level 4.3 g/dL (3.5-5.0); Alkaline Phosphatase 85 U/L (39-117); Anion Gap 15 (12-20); Aspartate Amino Transferase 24 U/L (5-37); Bilirubin Total 0.6 mg/dL (0.0-1.0); Blood Urea Nitrogen 17 mg/dL (9-16); Calcium 9.9 mg/dL (8.4-10.2); Carbon Dioxide 29 mmol/L (22-29); Chloride 92 mmol/L (96-108); Cholesterol 313 mg/dL (<200); Estimated Glomerular Filt Rate > 60; Glucose Fasting 111 mg/dL (60-99); HDL Cholesterol 43 mg/dL (>40); LDL Cholesterol Calculated 194 mg/dL (<100); Potassium 3.2 mmol/L (3.3-5.1); Sodium 133 mmol/L (135-145); Triglycerides 383 mg/dL (<150)
[2024-04-01 15:20] LABS: Thyroid Stimulating Hormone 2.99 uIU/mL (0.32-4.0)
== END 2024-04-01 13:38 | disposition home or self-care (01) ==
LOC: HO.XRAY 13:37
PROVIDERS: PCP Internal Medicine; Visit Provider Internal Medicine
DX: M54.2 Cervicalgia (principal); M25.512 Pain in left shoulder; Z13.220 Encounter for screening for lipoid disorders; Z13.29 Encounter for screening for other suspected endocrine disorder; Z13.0 Encounter for screening for diseases of the blood and blood-forming organs and certain disorders involving the immune mechanism; Z13.9 Encounter for screening, unspecified
CPT/HCPCS: 36415; 72040; 73030; 80053; 80061; 84443; 85025

== ENCOUNTER 2024-09-09 13:53 | Outpatient (AMB) | payer OTHER, SELFPAY ==
[2024-09-09 13:54] VITALS: BP 112/80; PULSE 78; O2SAT 94; BMI 30.6
--- NOTE | 2024-09-09 13:54 | A.OFFPC_ITS ---
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 Accompanied by: Self / Same As Patient Allergies No Known Drug Allergies Allergy (Unknown, Verified 09/09/24 13:54) none Fruit skins Allergy (Unknown, Uncoded 09/09/24 13:54) Unknown Medication List - Last Reconciled 09/10/24 by Osmel Mcclure MD albuterol sulfate 90 mcg/actuation (Ventolin HFA) 2 puffs PO Q4-6H PRN allopurinol 300 mg PO DAILY chlorthalidone 25 mg PO DAILY clonazepam 1 mg PO BID-TID clotrimazole-betamethasone 1-0.05 % 1 appl topical BID 2 weeks fenofibrate 160 mg PO DAILY fluoxetine 40 mg PO QAM fluticasone propionate 50 mcg/actuation 1 spray intranasal DAILY ibuprofen 800 mg PO TID PRN levothyroxine 125 mcg PO DAILY metoprolol tartrate 50 mg PO BID multivitamin 1 tab PO DAILY nystatin 3 appl topical QID omeprazole 20 mg PO DAILY potassium chloride ER (Klor-Con M) mEq PO quetiapine 100 mg PO BEDTIME sennosides (senna) 8.6 mg PO BEDTIME simvastatin 40 mg PO DAILY sodium,potassium,mag sulfates 17.5-3.13-1.6 gram (Suprep Bowel Prep Kit) 480 mL orally; thiamine HCl (vitamin B1) 500 mg PO DAILY tiotropium bromide 2.5 mcg/actuation (Spiriva Respimat) 2 puffs inhalation DAILY trazodone 100 mg PO BEDTIME PRN Tobacco use date assessed: 09/09/24 Dental Screening Dental Screen Date: 09/09/24 Did you have a dental visit in the last 12 months?: Yes Did you have a dental problem in the last 6 months where you did not have access to dental care?: No Was dental information given to patient?: Patient has dentist HPI PE HPI Details asthma gout hypertension and hypothyroidism; chronic anxiety and depression [facility] Medical History (Updated 09/10/24 @ 08:16 by sOmel Mcclure MD) Physical exam Alcohol use disorder Mood disorder Substance use disorder Hypothyroidism Hypertension Obesity Surgical History No pertinent past surgical history Family History Father No problems noted. Mother No problems noted. Social History Household Members: None Housing: Apartment Do you presently have visiting nurse or other home services: No Alcohol intake: former Patient Tobacco Use Status: Former Tobacco user Years Smoked: 8 years e-Cigarette/Vaping Use: Never Used Second Hand Smoke Exposure: No service: No Current occupational status: employed Current occupational exposures/hazards: No Cognitive needs: No Hearing needs: No Vision needs: No Questionnaire PHQ-9 Over the last 2 weeks, how often have you been bothered by any of the following problems? 1. Little interest or pleasure in doing things: more than half the days 2. Feeling down, depressed, or hopeless: more than half the days 3. Trouble falling or staying asleep, or sleeping too much: not at all 4. Feeling tired or having little energy: not at all 5. Poor appetite or overeating: not at all 6. Feeling bad about yourself - or that you are a failure or have let yourself or your family down: not at all 7. Trouble concentrating on things, such as reading the newspaper or watching television: not at all 8. Moving or speaking so slowly that other people could have noticed. Or the opposite - being so fidgety or restless that you have been moving around a lot more than usual: not at all 9. Thoughts that you would be better off or of hurting yourself in some way : not at all Total score: 4 Depression Screening Interpretation: Negative Depression Screening Done: Yes 30847 - PHQ-9 Billing: Yes Source: Developed by Drs. Hema Crouch, Lou Monreal, Elmer Darnell and colleagues, with an educational tobias from [employer] Thrive Questionnaire Date Thrive assessed: 09/09/24 I am a: Patient What is your living situation today?: I have a steady place to live Within the past 12 months, did the food you bought not last and you didn't have the money to get more?: Never true Within the past 12 months, did you worry whether your food would run out before you got money to buy more?: Never true Do you have trouble paying for medicines?: No Do you have trouble getting transportation to medical appointments?: No Do you have trouble paying your heating and electricity bill?: No Do you have trouble taking care of your child, family member or friend?: No Do you have trouble with day-to-day activities such as bathing, preparing meals, shopping, managing finances, etc.?: No Are you currently unemployed and looking for a job?: No Are you interested in more education?: No Please select the resources that you would like help with: None Currently or been in a relationship where the following occur: No concerns reported THRIVE Score: 0 AUDIT C Alcohol Use Questionnaire (AUDIT-C) 1. How often do you have a drink containing alcohol?: 2-3 times a week 2. How many drinks containing alcohol do you have on a typical day when you are drinking?: 1 or 2 3. How often do you have six or more drinks on one occasion?: Never Total Score: 3 Score Reviewed/Action Taken: Yes JAMISON-7 AMB Questionnaire JAMISON-7 Date JAMISON - 7 assessed: 09/09/24 Feeling nervous, anxious, or on edge: 0 = Not at all Not being able to stop or control worryin = Not at all Worrying too much about different things: 0 = Not at all Trouble relaxin = Not at all Being so restless that it is hard to sit still: 0 = Not at all Becoming easily annoyed or irritable: 0 = Not at all Feeling afraid as if something awful might happen: 0 = Not at all Total JAMISON-7 score (0-4 normal; 5-9 mild; 10-14 moderate; 15-21 severe): 0 Source: Developed by Drs. Hema Crouch, Lou Monreal, Elmer Darnell and colleagues, with an educational tobias from [employer] Review of Systems Const Denies chills, Denies fatigue, Denies headache(s) and Denies weight loss Eyes Denies change in vision, Denies diplopia and Denies eye pain ENT Denies vertigo, Denies dizziness, Denies headache(s) and Denies nasal discharge Card Denies chest pain, Denies rapid heart rate and Denies dyspnea on exertion Resp Denies chest congestion, Denies cough, Denies pain with cough and Denies dyspnea on exertion GI Denies abdominal pain, Denies hematochezia and Denies change in bowel habits Musc Denies myalgias, Denies arthralgias and Denies joint swelling Skin/Breast Denies lesions and Denies unusual bruising Neuro Denies vertigo, Denies dizziness, Denies headache(s) and Denies focal weakness Endo Denies fatigue Physical exam (Primary Care) Vital Signs: Last Vital Signs Pulse 78 09/09/24 13:54 BP 112/80 09/09/24 13:54 Pulse Ox 94 09/09/24 13:54 Oxygen Delivery Method Room Air 09/09/24 13:54 BMI result Body Mass Index 30.6 Tobacco/Smoking Status: Tobacco use Status Tobacco use date assessed 09/09/24 09/09/24 14:02 Patient Tobacco Use Status Former Tobacco user 09/09/24 14:02 e-Cigarette/Vaping Use Never Used 09/09/24 14:02 PHQ-9: PHQ-9 Score PHQ-9: Total score 4 09/09/24 14:02 Depression Screening Interpretation: Negative Thrive Assessment: Date of Thrive Assessment Date Thrive assessed 09/09/24 09/09/24 14:02 Currently or been in a relationship where the following occur: No concerns reported Const General: cooperative, healthy appearing and no acute distress Orientation/consciousness: oriented to person, oriented to place and oriented to time [facility] Head: Yes normal to inspection, Yes normocephalic and Yes atraumatic Mouth: Normal oral and palatal mucosa present and tongue normal Throat: Yes posterior oropharynx normal and Yes uvula midline Eyes General: appearance normal, both eyes and all related structures Neck Neck: Yes normal visual inspection, Yes full ROM and Yes no lymphadenopathy Thyroid: Thyroid normal Carotids: normal carotid upstroke Chest Chest palpation & inspection: normal inspection of the chest Resp Effort & Inspection: normal respiratory effort and able to speak in complete sentences Auscultation: clear to auscultation bilaterally Cardio Jugular venous distension: no JVD Palpation: normal PMI Rate: regular rate Rhythm: regular rhythm Heart sounds: S1 normal heart sound present and S2 normal heart sound present GI Inspection: Yes normal to inspection Palpation (GI): Soft to palpation and No hepatosplenomegaly present Auscultation: normal bowel sounds General: Yes no CVA tenderness Back/Spine/Pelvis Back: no CVA tenderness Skin General skin exam: no rashes or lesions noted Neuro General: oriented to person, oriented to place and oriented to time Extrem General: Yes normal to inspection and Yes full ROM Coding Level of Care Code Est Pt Prev Care 40-64y(98664) Diagnoses Physical exam Z00.00 Asthma-COPD overlap syndrome J44.9 High cholesterol E78.00 Hypothyroidism E03.9 Depression F32.A Hypertension I10 Additional Codes PHQ-9 - 63177 - PHQ-9 Billing: Yes ([id number]) Assessment & Plan Assessment & Plan (1) Physical exam: Code(s): Z00.00 - Encounter for general adult medical examination without abnormal findings Category: Medical Plan: stable; do labs (2) Asthma-COPD overlap syndrome: Code(s): J44.9 - Chronic obstructive pulmonary disease, unspecified Category: Medical Plan: stable; same rx (3) High cholesterol: Code(s): E78.00 - Pure hypercholesterolemia, unspecified Category: Medical Plan: same rx (4) Hypothyroidism: Code(s): E03.9 - Hypothyroidism, unspecified Category: Medical Plan: same rx (5) Depression: Code(s): F32.A - Depression, unspecified Category: Medical Plan: ref to psych (6) Hypertension: Code(s): I10 - Essential (primary) hypertension Category: Medical Plan: stable; same rx Orders: Orders Lipid Panel 09/09/24 Z13.220 - Encounter for screening for lipoid disorders Complete Blood Count Auto Diff 09/09/24 Z13.0 - Encounter for screening for diseases of the blood and blood-forming organs and certain disorders involving the immune mechanism XR lumbar spine 2-3V 09/09/24 M54.9 - Dorsalgia, unspecified Thyroid Stimulating Hormone 09/09/24 Z13.29 - Encounter for screening for other suspected endocrine disorder Comprehensive [place]. Panel Fast 09/09/24 Z13.9 - Encounter for screening, unspecified Prostate Specific Antigen Scr 09/09/24 Z00.00 - Encounter for general adult medical examination without abnormal findings Referrals Gastroenterology Referral Z12.11 - Encounter for screening for malignant neoplasm of colon Psychiatry Referral F32.A - Depression, unspecified
== END 2024-09-09 14:28 | disposition home or self-care (01) ==
PROVIDERS: PCP Internal Medicine; Visit Provider Internal Medicine
DX: Z00.00 Encounter for general adult medical examination without abnormal findings (principal); J44.9 Chronic obstructive pulmonary disease, unspecified; E78.00 Pure hypercholesterolemia, unspecified; E03.9 Hypothyroidism, unspecified; F32.A Depression, unspecified; I10 Essential (primary) hypertension

== ENCOUNTER 2024-09-15 14:31 | Outpatient (AMB) | payer OTHER, SELFPAY ==
--- NOTE | 2024-09-15 14:36 | A.OFFPC_ITS ---
Vital Signs 09/15/24 14:37 Height 5 ft 8 in Weight 201 lb 2 oz BMI 30.6 BP 122/84 Blood Pressure Location Lt brachial Position Sitting Pulse 68 Pulse Source Pulse Oximeter Pulse Oximetry (%) 95 Oxygen Delivery Method Room Air Intake Visit Reasons: possible bronchitis Social Security Specialist Required: No Accompanied by: Self / Same As Patient Allergies No Known Drug Allergies Allergy (Unknown, Verified 09/15/24 14:37) none Fruit skins Allergy (Unknown, Uncoded 09/15/24 14:37) Unknown Tobacco use date assessed: 09/15/24 Dental Screening Dental Screen Date: 09/15/24 Did you have a dental visit in the last 12 months?: Yes Did you have a dental problem in the last 6 months where you did not have access to dental care?: No Was dental information given to patient?: Patient has dentist HPI possible bronchitis HPI Details exposed to covid; has a cough [facility] Medical History (Updated 09/10/24 @ 08:16 by Osmel Mcclure MD) Physical exam Alcohol use disorder Mood disorder Substance use disorder Hypothyroidism Hypertension Obesity Surgical History No pertinent past surgical history Family History Father No problems noted. Mother No problems noted. Social History Household Members: None Housing: Apartment Do you presently have visiting nurse or other home services: No Alcohol intake: former Patient Tobacco Use Status: Former Tobacco user Years Smoked: 8 years e-Cigarette/Vaping Use: Never Used Second Hand Smoke Exposure: No service: No Current occupational status: employed Current occupational exposures/hazards: No Cognitive needs: No Hearing needs: No Vision needs: No Questionnaire PHQ-9 Over the last 2 weeks, how often have you been bothered by any of the following problems? 1. Little interest or pleasure in doing things: more than half the days 2. Feeling down, depressed, or hopeless: more than half the days 3. Trouble falling or staying asleep, or sleeping too much: not at all 4. Feeling tired or having little energy: not at all 5. Poor appetite or overeating: not at all 6. Feeling bad about yourself - or that you are a failure or have let yourself or your family down: not at all 7. Trouble concentrating on things, such as reading the newspaper or watching television: not at all 8. Moving or speaking so slowly that other people could have noticed. Or the opposite - being so fidgety or restless that you have been moving around a lot more than usual: not at all 9. Thoughts that you would be better off or of hurting yourself in some way: not at all Total score: 4 Depression Screening Interpretation: Negative Depression Screening Done: Yes 44056 - PHQ-9 Billing: Yes Source: Developed by Drs. Hema Crouch, Lou Monreal, Elmer Darnell and colleagues, with an educational tobias from [employer]. Thrive Questionnaire Date Thrive assessed: 09/15/24 I am a: Patient What is your living situation today?: I have a steady place to live Within the past 12 months, did the food you bought not last and you didn't have the money to get more?: Never true Within the past 12 months, did you worry whether your food would run out before you got money to buy more?: Never true Do you have trouble paying for medicines?: No Do you have trouble getting transportation to medical appointments?: Yes Do you have trouble paying your heating and electricity bill?: No Do you have trouble taking care of your child, family member or friend?: No Do you have trouble with day-to-day activities such as bathing, preparing meals, shopping, managing finances, etc.?: Yes Are you currently unemployed and looking for a job?: Yes Are you interested in more education?: No Please select the resources that you would like help with: None Currently or been in a relationship where the following occur: I choose not to answer THRIVE Score: 1 AUDIT C Alcohol Use Questionnaire (AUDIT-C) 1. How often do you have a drink containing alcohol?: 2-3 times a week 2. How many drinks containing alcohol do you have on a typical day when you are drinking?: 1 or 2 3. How often do you have six or more drinks on one occasion?: Never Total Score: 3 Score Reviewed/Action Taken: Yes JAMISON-7 AMB Questionnaire JAMISON-7 Date JAMISON - 7 assessed: 09/15/24 Feeling nervous, anxious, or on edge: 0 = Not at all Not being able to stop or control worryin = Not at all Worrying too much about different things: 0 = Not at all Trouble relaxin = Not at all Being so restless that it is hard to sit still: 0 = Not at all Becoming easily annoyed or irritable: 0 = Not at all Feeling afraid as if something awful might happen: 0 = Not at all Total JAMISON-7 score (0-4 normal; 5-9 mild; 10-14 moderate; 15-21 severe): 0 Source: Developed by Drs. Hema Crouch, Lou Monreal, Elmer Darnell and colleagues, with an educational tobias from [employer]. Review of Systems Const Denies chills, Denies headache(s) and Denies weight loss ENT Denies headache(s) Card Denies chest pain, Denies syncope, Denies irregular heart rhythm and Denies dyspnea Resp Denies dyspnea GI Denies abdominal pain, Denies change in stool character, Denies nausea and Denies vomiting Musc Denies deformity and Denies joint swelling Neuro Denies syncope and Denies headache(s) Physical exam (Primary Care) Vital Signs: Last Vital Signs Pulse 68 09/15/24 14:37 BP 122/84 09/15/24 14:37 Pulse Ox 95 09/15/24 14:37 Oxygen Delivery Method Room Air 09/15/24 14:37 BMI result Body Mass Index 30.6 Tobacco/Smoking Status: Tobacco use Status Tobacco use date assessed 09/15/24 09/15/24 14:39 Patient Tobacco Use Status Former Tobacco user 09/15/24 14:39 e-Cigarette/Vaping Use Never Used 09/15/24 14:39 PHQ-9: PHQ-9 Score PHQ-9: Total score 4 09/15/24 14:39 Depression Screening Interpretation: Negative Thrive Assessment: Date of Thrive Assessment Date Thrive assessed 09/15/24 09/15/24 14:39 Currently or been in a relationship where the following occur: I choose not to answer Const General: cooperative, comfortable, no acute distress and alert Neck Neck: Yes no lymphadenopathy Thyroid: Thyroid normal Resp Effort & Inspection: normal respiratory effort Auscultation: clear to auscultation bilaterally Percussion: percussion normal Cardio Jugular venous distension: no JVD Palpation: normal PMI Rate: regular rate Rhythm: regular rhythm Heart sounds: S1 normal heart sound present and S2 normal heart sound present GI Inspection: Yes normal to inspection Palpation (GI): No hepatosplenomegaly present Skin General skin exam: no rashes or lesions noted Extrem General: Yes no clubbing, cyanosis or edema Coding Level of Care Code Est Pt Level 3 (19559) Diagnoses Cough R05.9 Additional Codes PHQ-9 - 62748 - PHQ-9 Billing: Yes ([id number]) Assessment & Plan Assessment & Plan (1) Cough: Code(s): R05.9 - Cough, unspecified Category: Medical Plan: covid test ordered Orders: Orders COVID-19 ID NOW ([facility]) 09/15/24 R05.9 - Cough, unspecified Medications: New azithromycin take 500 mg today (day 1), then 250 mg for 4 days (days 2-5) PO 6 tabs 0RF
[2024-09-15 14:37] VITALS: BP 122/84; PULSE 68; O2SAT 95; BMI 30.6
== END 2024-09-15 16:41 | disposition home or self-care (01) ==
PROVIDERS: PCP Internal Medicine; Visit Provider Internal Medicine
DX: R05.9 Cough, unspecified (principal)

== ENCOUNTER → 2024-09-15 14:31 | Outpatient (BNVA) | payer OTHER, SELFPAY | PROVIDERS: PCP Internal Medicine; Visit Provider Internal Medicine | DX: R05.9 Cough, unspecified (principal) | CPT/HCPCS: 96127; 99212 ==

== ENCOUNTER 2025-01-13 16:03 | Outpatient (AMB) | payer OTHER, SELFPAY ==
[2025-01-13 16:08] VITALS: BP 124/94; PULSE 72; RESP 18; TEMP 36.5; O2SAT 96; BMI 29.7
--- NOTE | 2025-01-13 16:08 | A.OFFPC_ITS ---
Vital Signs 3 01/13/25 16:08 Height 5 ft 8 in Weight 195 lb 6.4 oz BMI 29.7 BP 124/94 H Blood Pressure Location Lt brachial Position Sitting Respiration 18 Pulse 72 Pulse Source Pulse Oximeter Temp 97.7 F Temp Source Oral Pulse Oximetry (%) 96 Oxygen Delivery Method Room Air Intake Visit Reasons: FOLLOW UP COMPLEX TRANSFER FROM [facility] Bleacher Sulfite Pulp Required: No Accompanied by: Self / Same As Patient Allergies No Known Drug Allergies Allergy (Unknown, Verified 01/13/25 16:30) none Fruit skins Allergy (Unknown, Uncoded 01/13/25 16:30) Unknown Medication List - Last Reconciled 01/16/25 by BRIAN Bailey albuterol sulfate 90 mcg/actuation (Ventolin HFA) 2 puffs PO Q4-6H PRN allopurinol 300 mg PO DAILY chlorthalidone 25 mg PO DAILY clonazepam 1 mg PO BID-TID clotrimazole-betamethasone 1-0.05 % 1 appl topical BID 2 weeks fenofibrate 160 mg PO DAILY fluoxetine 40 mg PO QAM fluticasone propionate 50 mcg/actuation 1 spray intranasal DAILY ibuprofen 800 mg PO TID PRN levothyroxine 125 mcg PO DAILY loratadine (Claritin) 10 mg PO DAILY PRN metoprolol tartrate 50 mg PO BID multivitamin 1 tab PO DAILY nystatin 3 appl topical QID omeprazole 20 mg PO DAILY potassium chloride ER (Klor-Con M) 20 mEq PO DAILY prednisone 20 mg PO DAILY 5 days quetiapine 100 mg PO BEDTIME sennosides (senna) 8.6 mg PO BEDTIME simvastatin 40 mg PO DAILY sulfamethoxazole-trimethoprim 800-160 mg (Bactrim DS) 1 tab PO BID 10 days thiamine HCl (vitamin B1) 500 mg PO DAILY tiotropium bromide 2.5 mcg/actuation (Spiriva Respimat) 2 puffs inhalation DAILY trazodone 100 mg PO BEDTIME PRN Tobacco use date assessed: 01/13/25 Dental Screening Dental Screen Date: 01/13/25 Did you have a dental visit in the last 12 months?: Yes Did you have a dental problem in the last 6 months where you did not have access to dental care?: No Was dental information given to patient?: Patient has dentist HPI FOLLOW UP COMPLEX TRANSFER FROM [facility] 2 HPI0 Details The patient is a 55-year-old male presenting to transition care from Dr. Mcclure who retired. Patient has past medical history of asthma, COPD overlap syndrome, opioid use disorder, hypothyroidism, mood disorder, alcohol use disorder, depression, hypokalemia, hypertension and obesity Patient is presenting complaining of a 2 week history of bronchial infection, reports that he also has chronic allergic rhinitis and that his symptoms started as a sore throat. Reports that he took the COVID test and was negative. He has been coughing up green/black secretions intermittently. The patient's psychiatric background of depression and insomnia necessitate resilience on Seroquel and trazodone for sleep; however, previous psychiatric evaluation occurred 15 years prior. Existing conditions of low potassium notably associated with ventricular tachycardia episodes were managed historically with supplements, now neglected inadvertently Patient reports upper back cyst: Ongoing for 3 years, started small and gotten bigger over time. Reports family members squeezing out tooth paste appearing substance intermittently, reported about 10 times so far. Area tender with palpation. The patient is requesting for all his meds to be refilled [facility] Medical History (Updated 01/16/25 @ 13:26 by BRIAN Bailey) Physical exam Alcohol use disorder Mood disorder Substance use disorder Hypothyroidism Hypertension Obesity Surgical History No pertinent past surgical history Family History Father No problems noted. Mother No problems noted. Social History Household Members: None Housing: Apartment Do you presently have visiting nurse or other home services: No Alcohol intake: former Patient Tobacco Use Status: Former Tobacco user Years Smoked: 8 years e-Cigarette/Vaping Use: Never Used Second Hand Smoke Exposure: Yes service: No Current occupational status: employed Current occupational exposures/hazards: No Cognitive needs: No Hearing needs: No Vision needs: No Questionnaire Thrive Questionnaire Date Thrive assessed: 01/13/25 I am a: Patient What is your living situation today?: I have a steady place to live Within the past 12 months, did the food you bought not last and you didn't have the money to get more?: Never true Within the past 12 months, did you worry whether your food would run out before you got money to buy more?: Never true Do you have trouble paying for medicines?: No Do you have trouble getting transportation to medical appointments?: Yes Do you have trouble paying your heating and electricity bill?: No Do you have trouble taking care of your child, family member or friend?: No Do you have trouble with day-to-day activities such as bathing, preparing meals, shopping, managing finances, etc.?: Yes Are you currently unemployed and looking for a job?: Yes Are you interested in more education?: No Please select the resources that you would like help with: None Currently or been in a relationship where the following occur: I choose not to answer THRIVE Score: 1 AUDIT C Alcohol Use Questionnaire (AUDIT-C) 1. How often do you have a drink containing alcohol?: 4 or more times a week (Every other day in the week) 2. How many drinks containing alcohol do you have on a typical day when you are drinking?: 5 or 6 3. How often do you have six or more drinks on one occasion?: Weekly Total Score: 9 Score Reviewed/Action Taken: Yes JAMISON-7 AMB Questionnaire JAMISON-7 Date JAMISON - 7 assessed: 09/15/24 Source: Developed by Drs. Hema Crouch, Lou Monreal, Elmer Darnell and colleagues, with an educational tobias from [employer]. Review of Systems Const Denies headache(s) Eyes Denies loss of vision ENT Denies vertigo, Denies dizziness, Denies headache(s) and Denies sore throat Card Denies chest pain, Denies leg edema and Denies lightheadedness Resp Denies cough, Denies hemoptysis and Denies wheezing GI Denies abdominal pain, Denies melena, Denies constipation, Denies diarrhea and Denies vomiting Denies dysuria, Denies urinary frequency and Denies urinary urgency Musc Denies arthralgias, Denies joint swelling, Denies numbness and Denies tingling Neuro Denies Abnormal speech present, Denies behavioral changes, Denies vertigo, Denies dizziness, Denies headache(s), Denies loss of vision, Denies memory loss, Denies numbness and Denies tingling Psych Denies anxiety, Denies behavioral changes, Denies depression, Denies memory loss and Denies panic attacks Sim/Lymph Denies easy bleeding and Denies easy bruising Aller/Immun Denies wheezing Physical exam (Primary Care) Vital Signs: Last Vital Signs Temp 97.7 F 01/13/25 16:08 Pulse 72 01/13/25 16:08 Resp 18 01/13/25 16:08 BP 124/94 H 01/13/25 16:08 Pulse Ox 96 01/13/25 16:08 Oxygen Delivery Method Room Air 01/13/25 16:08 BMI result Body Mass Index 29.7 Tobacco/Smoking Status: Tobacco use Status Tobacco use date assessed 01/13/25 01/13/25 16:24 Patient Tobacco Use Status Former Tobacco user 01/13/25 16:24 e-Cigarette/Vaping Use Never Used 01/13/25 16:24 Thrive Assessment: Date of Thrive Assessment Date Thrive assessed 01/13/25 01/13/25 16:24 Currently or been in a relationship where the following occur: I choose not to answer Const General: healthy appearing, no acute distress, alert and awake Nutritional Appearance: well nourished Orientation/consciousness: oriented to person, oriented to place and oriented to time HENMT Ears: TM's normal bilaterally General nose exam: Normal nasal mucous membranes and turbinates present Eyes Conjunctivae: conjunctivae normal Sclerae: sclerae normal Pupils: Equal, round and reactive pupils present Neck Neck: Yes no lymphadenopathy and Yes no JVD Thyroid: Thyroid normal Carotids: no bruits Resp Effort & Inspection: normal respiratory effort and not tachypneic Auscultation: no crackles, no rales, no rhonchi and no wheezes Cardio Rate: regular rate Rhythm: regular rhythm Heart sounds: no murmurs and normal S1 and S2 GI Inspection: Yes Abdominal panniculus present Palpation (GI): Soft to palpation, nontender, no hepatomegaly and no splenomegaly Auscultation: normal bowel sounds Skin Other: General skin exam: dry skin Lesions: lesion noted (cyst) Neuro General: oriented to person, oriented to place and oriented to time Cranial nerves: Yes Equal, round and reactive pupils present Speech: No Abnormal speech present Gait exam (Neuro): Normal gait present Motor exam (neuro): no tremor noted Extrem Right upper extremity: full ROM Left upper extremity: full ROM Right lower extremity: full ROM; no edema Left lower extremity: full ROM; no edema Psych Mental Status: mental status grossly normal Speech and movement: Normal speech and movement present Affect: normal affect Attitude: cooperative Thought process: Normal thought process present Coding Level of Care Code Est Pt Level 4 (28991) Diagnoses Bronchitis J40 Asthma-COPD overlap syndrome J44.9 High cholesterol E78.00 Hypothyroidism, unspecified type E03.9 Hypothyroidism type: unspecified Substance use disorder F19.90 Alcohol use disorder F10.90 Mood disorder F39 Hypokalemia E87.6 Depression, unspecified depression type F32.A Depression Type: unspecified Hypertension, unspecified type I10 Hypertension type: unspecified Obesity, unspecified class, unspecified obesity type, unspecified whether serious comorbidity present E66.9 Obesity type: unspecified obesity type Obesity classification: unspecified obesity classification Serious obesity comorbidity presence: unspecified whether serious comorbidity present Epidermal cyst L72.0 Anxiety F41.9 Time Spent (min) 45 Assessment & Plan Assessment & Plan (1) Bronchitis: Code(s): J40 - Bronchitis, not specified as acute or chronic Category: Medical Plan: Lungs are clear on exam. Suspecting bronchitis Bactrim ds 1 tab b.i.d. x 10 days in order to cover the patient skin infection as well. Prednisone 20 mg daily x 5 days (2) Asthma-COPD overlap syndrome: Code(s): J44.9 - Chronic obstructive pulmonary disease, unspecified Category: Medical Plan: continue albuterol sulfate 2 puffs q.4-6 hours p.r.n. and Spiriva 2 puffs daily (3) High cholesterol: Code(s): E78.00 - Pure hypercholesterolemia, unspecified Category: Medical Plan: Reinforced low-cholesterol diet Continue simvastatin 40 mg daily and fenofibrate 160 mg daily (4) Hypothyroidism: Code(s): E03.9 - Hypothyroidism, unspecified Category: Medical Qualifiers: Hypothyroidism type: unspecified Qualified Code(s): E03.9 - Hypothyroidism, unspecified Plan: Continue levothyroxine 125 mcg daily, patient reports that he has been taking this medication with all his other meds. Educated the patient on taking this medication on a empty stomach by its self around the same time everyday. Labs ordered to further evaluate. (5) Substance use disorder: Code(s): F19.90 - Other psychoactive substance use, unspecified, uncomplicated Category: Medical Plan: Discussed in length about not taking any other substance while on his benzodiazepine. Encouraged cessation (6) Alcohol use disorder: Code(s): F10.90 - Alcohol use, unspecified, uncomplicated Category: Medical Plan: Similarly, a lengthy discussion about consuming alcohol which is a [employer] depressant while taking his Klonopin. EXPLAINED TO THE PATIENT THAT THE MIXTURE OF ALCOHOL WITH THIS MEDICATION COULD ACTUALLY KILL HIM. The patient reports that he is aware and tries not to mix the two. Will refer the patient to addiction medicine. (7) Mood disorder: Code(s): F39 - Unspecified mood [affective] disorder Category: Medical Plan: The patient is on fluoxetine 40 mg daily, he is also on Seroquel 100 mg but using it mostly for sleep at bedtime. Reports that he has not been evaluated by Psychiatry for over 15 years now. We will refer the patient back the Psychiatry for an evaluation (8) Hypokalemia: Code(s): E87.6 - Hypokalemia Category: Medical Plan: Encouraged foods high in potassium (9) Depression: Code(s): F32.A - Depression, unspecified Category: Medical Qualifiers: Depression Type: unspecified Qualified Code(s): F32.A - Depression, unspecified Plan: Encouraged CBT Continue fluoxetine 40 mg daily Denies SI/HI (10) Hypertension: Code(s): I10 - Essential (primary) hypertension Category: Medical Qualifiers: Hypertension type: unspecified Qualified Code(s): I10 - Essential (primary) hypertension Plan: Reinforced low-sodium diet Continue metoprolol tartrate 50 mg b.i.d. (11) Obesity: Code(s): E66.9 - Obesity, unspecified Category: Medical Qualifiers: Obesity type: unspecified obesity type Obesity classification: u nspecified obesity classification Serious obesity comorbidity presence: u nspecified whether serious comorbidity present Qualified Code(s): E66.9 - Obesity, unspecified Plan: Encouraged to exercise for at least 30 minutes a day/5 days a week Healthy eating discussed. Encouraged to eat fruits/vegetables, protein- fish/baked chicken, and to avoid salty/fried foods, sweets, caffeine and carbohydrates. Encouraged to increase water intake 6-8 glasses a day (12) Epidermal cyst: Code(s): L72.0 - Epidermal cyst Category: Medical Plan: Mid-back the epidermal cyst ongoing for 3 years. Squeezed out paste-like drainage intermittently roughly about 10 times so far. Bactrim ds ordered along with a general surgery referral (13) Anxiety: Code(s): F41.9 - Anxiety disorder, unspecified Category: Medical Plan: Encouraged CBT Continue fluoxetine 40 mg daily and Klonopin 1 mg b.i.d. to t.i.d. Orders: Orders 2 Complete Blood Count Auto Diff 01/13/25 E03.9 - Hypothyroidism, unspecified, E78.00 - Pure hypercholesterolemia, unspecified, F10.90 - Alcohol use, unspecified, uncomplicated, F11.90 - Opioid use, unspecified, uncomplicated, F19.90 - Other psychoactive substance use, unspecified, uncomplicated, F39 - Unspecified mood [affective] disorder, I10 - Essential (primary) hypertension, J44.9 - Chronic obstructive pulmonary disease, unspecified, K40.20 - Bilateral inguinal hernia, without obstruction or gangrene, not specified as recurrent, M62.82 - Rhabdomyolysis, N17.9 - Acute kidney failure, unspecified, R13.12 - Dysphagia, oropharyngeal phase, R55 - Syncope and collapse, S06.0XAA - Concussion with loss of consciousness status unknown, initial encounter, S40.019A - Contusion of unspecified shoulder, initial encounter, Z80.0 - Family history of malignant neoplasm of digestive organs, Z86.79 - Personal history of other diseases of the circulatory system Comprehensive [place]. Panel Fast 01/13/25 E03.9 - Hypothyroidism, unspecified, E78.00 - Pure hypercholesterolemia, unspecified, F10.90 - Alcohol use, unspecified, uncomplicated, F11.90 - Opioid use, unspecified, uncomplicated, F19.90 - Other psychoactive substance use, unspecified, uncomplicated, F39 - Unspecified mood [affective] disorder, I10 - Essential (primary) hypertension, J44.9 - Chronic obstructive pulmonary disease, unspecified, K40.20 - Bilateral inguinal hernia, without obstruction or gangrene, not specified as recurrent, M62.82 - Rhabdomyolysis, N17.9 - Acute kidney failure, unspecified, R13.12 - Dysphagia, oropharyngeal phase, R55 - Syncope and collapse, S06.0XAA - Concussion with loss of consciousness status unknown, initial encounter, S40.019A - Contusion of unspecified shoulder, initial encounter, Z80.0 - Family history of malignant neoplasm of digestive organs, Z86.79 - Personal history of other diseases of the circulatory system Vitamin D 25-OH Total 01/13/25 E03.9 - Hypothyroidism, unspecified, E78.00 - Pure hypercholesterolemia, unspecified, F10.90 - Alcohol use, unspecified, uncomplicated, F11.90 - Opioid use, unspecified, uncomplicated, F19.90 - Other psychoactive substance use, unspecified, uncomplicated, F39 - Unspecified mood [affective] disorder, I10 - Essential (primary) hypertension, J44.9 - Chronic obstructive pulmonary disease, unspecified, K40.20 - Bilateral inguinal hernia, without obstruction or gangrene, not specified as recurrent, M62.82 - Rhabdomyolysis, N17.9 - Acute kidney failure, unspecified, R13.12 - Dysphagia, oropharyngeal phase, R55 - Syncope and collapse, S06.0XAA - Concussion with loss of consciousness status unknown, initial encounter, S40.019A - Contusion of unspecified shoulder, initial encounter, Z80.0 - Family history of malignant neoplasm of digestive organs, Z86.79 - Personal history of other diseases of the circulatory system Vitamin B12 and Folate 01/13/25 E03.9 - Hypothyroidism, unspecified, E78.00 - Pure hypercholesterolemia, unspecified, F10.90 - Alcohol use, unspecified, uncomplicated, F11.90 - Opioid use, unspecified, uncomplicated, F19.90 - Other psychoactive substance use, unspecified, uncomplicated, F39 - Unspecified mood [affective] disorder, I10 - Essential (primary) hypertension, J44.9 - Chronic obstructive pulmonary disease, unspecified, K40.20 - Bilateral inguinal hernia, without obstruction or gangrene, not specified as recurrent, M62.82 - Rhabdomyolysis, N17.9 - Acute kidney failure, unspecified, R13.12 - Dysphagia, oropharyngeal phase, R55 - Syncope and collapse, S06.0XAA - Concussion with loss of consciousness status unknown, initial encounter, S40.019A - Contusion of unspecified shoulder, initial encounter, Z80.0 - Family history of malignant neoplasm of digestive organs, Z86.79 - Personal history of other diseases of the circulatory system Glucose Fasting 01/13/25 E03.9 - Hypothyroidism, unspecified, E78.00 - Pure hypercholesterolemia, unspecified, F10.90 - Alcohol use, unspecified, uncomplicated, F11.90 - Opioid use, unspecified, uncomplicated, F19.90 - Other psychoactive substance use, unspecified, uncomplicated, F39 - Unspecified mood [affective] disorder, I10 - Essential (primary) hypertension, J44.9 - Chronic obstructive pulmonary disease, unspecified, K40.20 - Bilateral inguinal hernia, without obstruction or gangrene, not specified as recurrent, M62.82 - Rhabdomyolysis, N17.9 - Acute kidney failure, unspecified, R13.12 - Dysphagia, oropharyngeal phase, R55 - Syncope and collapse, S06.0XAA - Concussion with loss of consciousness status unknown, initial encounter, S40.019A - Contusion of unspecified shoulder, initial encounter, Z80.0 - Family history of malignant neoplasm of digestive organs, Z86.79 - Personal history of other diseases of the circulatory system Uric Acid 01/13/25 M10.9 - Gout, unspecified Lipid Panel 01/13/25 E03.9 - Hypothyroidism, unspecified, E78.00 - Pure hypercholesterolemia, unspecified, F10.90 - Alcohol use, unspecified, uncomplicated, F11.90 - Opioid use, unspecified, uncomplicated, F19.90 - Other psychoactive substance use, unspecified, uncomplicated, F39 - Unspecified mood [affective] disorder, I10 - Essential (primary) hypertension, J44.9 - Chronic obstructive pulmonary disease, unspecified, K40.20 - Bilateral inguinal hernia, without obstruction or gangrene, not specified as recurrent, M62.82 - Rhabdomyolysis, N17.9 - Acute kidney failure, unspecified, R13.12 - Dysphagia, oropharyngeal phase, R55 - Syncope and collapse, S06.0XAA - Concussion with loss of consciousness status unknown, initial encounter, S40.019A - Contusion of unspecified shoulder, initial encounter, Z80.0 - Family history of malignant neoplasm of digestive organs, Z86.79 - Personal history of other diseases of the circulatory system Magnesium 01/13/25 E03.9 - Hypothyroidism, unspecified, E78.00 - Pure hypercholesterolemia, unspecified, F10.90 - Alcohol use, unspecified, uncomplicated, F11.90 - Opioid use, unspecified, uncomplicated, F19.90 - Other psychoactive substance use, unspecified, uncomplicated, F39 - Unspecified mood [affective] disorder, I10 - Essential (primary) hypertension, J44.9 - Chronic obstructive pulmonary disease, unspecified, K40.20 - Bilateral inguinal hernia, without obstruction or gangrene, not specified as recurrent, M62.82 - Rhabdomyolysis, N17.9 - Acute kidney failure, unspecified, R13.12 - Dysphagia, oropharyngeal phase, R55 - Syncope and collapse, S06.0XAA - Concussion with loss of consciousness status unknown, initial encounter, S40.019A - Contusion of unspecified shoulder, initial encounter, Z80.0 - Family history of malignant neoplasm of digestive organs, Z86.79 - Personal history of other diseases of the circulatory system UA CC w/rflx Micro + Cult 01/13/25 E03.9 - Hypothyroidism, unspecified, E78.00 - Pure hypercholesterolemia, unspecified, F10.90 - Alcohol use, unspecified, uncomplicated, F11.90 - Opioid use, unspecified, uncomplicated, F19.90 - Other psychoactive substance use, unspecified, uncomplicated, F39 - Unspecified mood [affective] disorder, I10 - Essential (primary) hypertension, J44.9 - Chronic obstructive pulmonary disease, unspecified, K40.20 - Bilateral inguinal hernia, without obstruction or gangrene, not specified as recurrent, M62.82 - Rhabdomyolysis, N17.9 - Acute kidney failure, unspecified, R13.12 - Dysphagia, oropharyngeal phase, R55 - Syncope and collapse, S06.0XAA - Concussion with loss of consciousness status unknown, initial encounter, S40.019A - Contusion of unspecified shoulder, initial encounter, Z80.0 - Family history of malignant neoplasm of digestive organs, Z86.79 - Personal history of other diseases of the circulatory system TSH reflex Free T4 01/13/25 E03.9 - Hypothyroidism, unspecified, E78.00 - Pure hypercholesterolemia, unspecified, F10.90 - Alcohol use, unspecified, uncomplicated, F11.90 - Opioid use, unspecified, uncomplicated, F19.90 - Other psychoactive substance use, unspecified, uncomplicated, F39 - Unspecified mood [affective] disorder, I10 - Essential (primary) hypertension, J44.9 - Chronic obstructive pulmonary disease, unspecified, K40.20 - Bilateral inguinal hernia, without obstruction or gangrene, not specified as recurrent, M62.82 - Rhabdomyolysis, N17.9 - Acute kidney failure, unspecified, R13.12 - Dysphagia, oropharyngeal phase, R55 - Syncope and collapse, S06.0XAA - Concussion with loss of consciousness status unknown, initial encounter, S40.019A - Contusion of unspecified shoulder, initial encounter, Z80.0 - Family history of malignant neoplasm of digestive organs, Z86.79 - Personal history of other diseases of the circulatory system Referrals 2 General Surgery Referral L72.0 - Epidermal cyst Psychiatry Referral F32.A - Depression, unspecified, F39 - Unspecified mood [affective] disorder, F41.9 - Anxiety disorder, unspecified Addiction Medicine Referral F10.90 - Alcohol use, unspecified, uncomplicated, F11.90 - Opioid use, unspecified, uncomplicated, F19.90 - Other psychoactive substance use, unspecified, uncomplicated Medications: New 2 sulfamethoxazole-trimethoprim 800-160 mg (Bactrim DS) 1 tab PO BID 10 days 20 tabs 0RF prednisone 20 mg PO DAILY 5 days 5 tabs 0RF loratadine (Claritin) 10 mg PO DAILY PRN 30 tabs 3RF allergy symptoms Changed 2 From potassium chloride ER (Klor-Con M) PO To potassium chloride ER (Klor-Con M) 20 mEq PO DAILY 30 tabs 3RF Refilled 2 allopurinol 300 mg PO DAILY 90 tabs 0RF chlorthalidone 25 mg PO DAILY 90 tabs 7RF fenofibrate 160 mg PO DAILY 90 tabs 7RF fluoxetine 40 mg PO QAM 90 caps 1RF fluticasone propionate 50 mcg/actuation administer into each nostril 1 spray intranasal DAILY 9.9 mL 2RF ibuprofen 800 mg PO TID PRN 90 tabs 2RF Pain metoprolol tartrate 50 mg PO BID 60 tabs 8RF levothyroxine 125 mcg PO DAILY 90 tabs 2RF multivitamin 1 tab PO DAILY 30 tabs 0RF nystatin 3 appl topical QID 60 grams 3RF B37.9 - Candidiasis, unspecified, Z80.0 - Family history of malignant neoplasm of digestive organs omeprazole 20 mg PO DAILY 90 caps 0RF quetiapine 100 mg PO BEDTIME 90 tabs 0RF sennosides (senna) 8.6 mg PO BEDTIME 90 tabs 0RF simvastatin 40 mg PO DAILY 90 tabs 0RF thiamine HCl (vitamin B1) 500 mg PO DAILY 30 tabs 0RF tiotropium bromide 2.5 mcg/actuation (Spiriva Respimat) 2 puffs inhalation DAILY 4 grams 7RF trazodone 100 mg PO BEDTIME PRN 30 tabs 3RF sleep Patient Instructions: Patient to complete labs as soon as possible to further evaluate. Patient to return in 3 months
--- OUTSIDE RECORDS SUMMARY | 2025-01-13 16:15 | XMS_ITS | Clinical Summary ---
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 Name Role Phone Osmel Mcclure MD Primary Care Provider [phone] Social History Tobacco Use Types Packs/Day Years Used Date Smoking Tobacco: Never Assessed Sex and Gender Information Value Date Recorded Sex Assigned at Not on file Legal Sex Male 9:36 AM EDT Gender Identity Not on file Sexual Orientation Not on file Plan of Treatment Health Maintenance Due Date Last Done Comments Hepatitis B Vaccine (1 of 3 - 19+ 3-dose series) 01/12 Pneumococcal Vaccine: 50+ Years (1 of 2 - PCV) 991 Colorectal Cancer Screening: Annual FOBT 01/12/2021 Colorectal Cancer Screening: Colonoscopy 01/12/2021 Colorectal Cancer Screening: Sigmoidoscopy 01/12/2021 Influenza Vaccine (Season Ended) 2025 Insurance [facility] [employer] [facility] [employer] Care Teams Ground Service Equipment Mechanic Relationship Specialty Start Date End Date Osmel Mcclure MD [address] [place], [place] PCP - General Internal Medicine 02/04/23
--- OUTSIDE RECORDS SUMMARY | 2025-01-13 16:15 | XMS_ITS | Clinical Summary ---
Author Organization [facility] Address [address] [facility] [address] [place] [address] Care Team Providers Care Rn Managed Care Name Role Phone Unavailable Primary Care Provider Unavailabl e Allergies No known active allergies Medications traZODone (Desyrel) 100 MG tablet TAKE 1 TABLET ORALLY AT BEDTIME NEEDED FOR SLEEP 3 Active Spiriva Respimat 2.5 MCG/ACT inhaler 2 puffs in the morning. 3 Active tamsulosin (Flomax) 0.4 MG 24 hr capsule TAKE 1 CAPSULE(0.4 MG) BY MOUTH DAILY 9 Active simvastatin (Zocor) 40 MG tablet Take 40 mg by mouth in the morning. 3 Active sennosides (Senna-Time) 8.6 MG tablet Take 1 tablet by mouth if needed in the morning and at bedtime. 0 Active QUEtiapine (SEROquel) 100 MG tablet TAKE 1/2 TO 1 TABLET BY MOUTH BY MOUTH EVERY NIGHT 0 Active predniSONE (Deltasone) 20 MG tablet Take 3 tablets at the same time po daily x 3 days, then 2 tablets at the same time daily x 3 days, then 1 tablet daily x 3 days 9 Active ondansetron ODT (Zofran-ODT) 4 MG disintegrating tablet TAKE 1 TABLET BY MOUTH EVERY 6 TO 8 HOURS NEEDED FOR NAUSEA AND VOMITING 3 Active omeprazole (PriLOSEC) [address] capsule Take 20 mg by mouth in the morning. 3 Active nystatin (Mycostatin) cream APPLY TO AFFECTED AREA TOPICALLY 4 TIMES A DAY 3 Active Suprep Bowel Prep Kit 17.5-3.13-1.6 GM/177ML solution DRINK DIRECTED 3 Active metoprolol tartrate (Lopressor) 50 MG tablet Take 1 tablet by mouth 2 times daily. 0 Active methylPREDNISolone (Medrol Dospak) 4 MG tablets TAKE 6 TABLETS ON DAY 1 DIRECTED ON PACKAGE AND DECREASE BY 1 TAB EACH DAY FOR A TOTAL OF 6 DAYS 3 Active levothyroxine (Synthroid, Levoxyl) 175 MCG tablet TAKE 1 TABLET(175 MCG) BY MOUTH EVERY MORNING 9 Active ipratropium-albute rol (Duo-Neb) 0.5-2.5 mg/3 mL nebulizer solution Inhale 3 mL if needed in the morning, at noon, in the evening, and at bedtime. 9 Active ibuprofen 800 MG tablet Take 1 tablet by mouth every 8 (eight) hours if needed. 2 Active fluticasone (Flonase) 50 MCG/ACT nasal spray SPRAY 1 SPRAY INTO EACH NOSTRIL DAILY 3 Active FLUoxetine (PROzac) 40 MG capsule TAKE 1 CAPSULE(40 MG) BY MOUTH EVERY MORNING 0 Active fenofibrate (Triglide) 160 MG tablet TAKE 1 TABLET BY MOUTH EVERY DAY WITH A MEAL 0 Active famotidine (Pepcid) 20 MG tablet Take 1 tablet by mouth 2 times daily. 0 Active clotrimazole-betam ethasone (Lotrisone) cream APPLY TO AFFECTED AREA TWICE A DAY FOR 2 WEEKS 3 Active clonazePAM (KlonoPIN) 1 MG tablet Take 1 tablet by mouth if needed in the morning, at noon, and at bedtime. 9 Active chlorthalidone (Hygroton) 25 MG tablet TAKE 1 TABLET(25 MG) BY MOUTH EVERY MORNING 0 Active azithromycin (Zithromax) 250 MG tablet TAKE 2 TABLETS BY MOUTH TODAY, THEN TAKE 1 TABLET DAILY FOR 4 DAYS 3 Active atorvastatin (Lipitor) 40 MG tablet Take 1 tablet by mouth in the morning. 0 Active allopurinol (Zyloprim) 300 MG tablet Take 300 mg by mouth in the morning. 9 Active albuterol (ProAir HFA) 108 (90 Base) MCG/ACT inhaler Inhale 2 puffs every 4 (four) hours if needed. 9 Active Active Problems Problem Noted Date Diagnosed Date Acquired hypothyroidism 03/12/2018 Allergic rhinitis 03/12/2018 Benign prostatic hyperplasia with lower urinary tract symptoms 03/12/2018 Borderline diabetes 03/12/2018 Chronic low back pain 03/12/2018 Depression with anxiety 03/12/2018 Erectile dysfunction 03/12/2018 Essential hypertension 03/12/2018 GERD without esophagitis 03/12/2018 Gout 03/12/2018 Hypercholesterolemia 03/12/2018 Insomnia 03/12/2018 Primary osteoarthritis involving multiple joints 03/12/2018 Obesity 03/12/2018 Mild intermittent asthma without complication Social History Tobacco Use Types Packs/Day Years Used Date Smoking Tobacco: Never Smokeless Tobacco: Never Tobacco Cessation:Counseling Given: Not Answered Sex and Gender Information Value Date Recorded Sex Assigned at Male 04/17/2023 8:37 AM EDT Legal Sex Male 8:36 AM EDT Gender Identity Male 04/17/2023 8:37 AM EDT Sexual Orientation Straight 04/17/2023 8: 37 AM EDT Plan of Treatment Health Maintenance Due Date Last Done Comments CT Colonography 1972 Colonoscopy 1972 Colorectal Cancer Screening 1972 Dental Oral Exam 1972 Dental Prophylaxis 1972 Dental X-Ray: Bitewings 1972 Depression Screening 1972 FIT DNA/Cologuard 1972 FIT 1972 FOBT 1972 HIV Screening 1972 Lipid Panel 1972 SDOH Screening 1972 Sigmoidoscopy 1972 Alcohol/Substance Use Screening 1984 Hepatitis C Screening 01/12/1990 Pneumococcal Vaccine: 50+ Years (1 of 2 - PCV) 01/12/1991 Hepatitis B Vaccines (2 of 3 - 19+ 3-dose series) 12/31/2019 12/03/2019 Zoster Vaccines (1 of 2) 01/12/2022 Tobacco Screening 04/17/2024 04/17/2023 COVID-19 Vaccine (3 - 2023-2 5 season) 2024 02/12/2022, 12/13/2021 Influenza Vaccine (#1) 2024 2, 06/29/2021, 05/05/2015 Dental X-Ray: Full Mouth 04/18/2026 04/17/2023 DTaP/Tdap/Td Vaccines (2 - T d or Tdap) 12/14/2028 12/14/2018, 03/05/2017 RSV Patients and Patients Aged 60 years or older (1 - 1-dose 75+ series) 01/12/2047 Hepatitis A Vaccines Aged Out 12/03/2019 No long er eligible based on patient's age to complete this topic HIB Vaccines Aged Out No longer eligi ble based on patient's age to complete this topic HPV Vaccines Aged Out No longer eligi ble based on patient's age to complete this topic IPV Vaccines Aged Out No longer eligi ble based on patient's age to complete this topic Meningococcal Vaccine Aged Out No hema lesly eligible based on patient's age to complete this topic RSV under 20 months Aged Out No longe r eligible based on patient's age to complete this topic Rotavirus Vaccines Aged Out No longer eligible based on patient's age to complete this topic Procedures Procedure Name Priority Date/Time Associated Diagnosis Comments PANORAMIC RADIOGRAPHIC IMAGE Routine 04/17/2023 9:30 AM EDT Dental abscess Dental caries from Last 3 Months or Most Recently Relevant to Health Maintenance Insurance [facility] MEDICAID STAND ADULT
== END 2025-01-13 17:25 | disposition home or self-care (01) ==
LOC: HO.HMCH 16:04
DX: J40 Bronchitis, not specified as acute or chronic (principal); J44.9 Chronic obstructive pulmonary disease, unspecified; E66.9 Obesity, unspecified; Z68.29 Body mass index [BMI] 29.0-29.9, adult; E78.00 Pure hypercholesterolemia, unspecified; E03.9 Hypothyroidism, unspecified; F19.90 Other psychoactive substance use, unspecified, uncomplicated; F10.90 Alcohol use, unspecified, uncomplicated; F39 Unspecified mood [affective] disorder; E87.6 Hypokalemia; F32.A Depression, unspecified; I10 Essential (primary) hypertension

== ENCOUNTER → 2025-01-13 16:03 | Outpatient (BNVA) | payer OTHER, SELFPAY | DX: J40 Bronchitis, not specified as acute or chronic (principal); J44.89 Other specified chronic obstructive pulmonary disease; E03.9 Hypothyroidism, unspecified; F32.A Depression, unspecified; F19.90 Other psychoactive substance use, unspecified, uncomplicated; F10.90 Alcohol use, unspecified, uncomplicated; I10 Essential (primary) hypertension; E66.9 Obesity, unspecified; E78.00 Pure hypercholesterolemia, unspecified; E87.6 Hypokalemia; L72.0 Epidermal cyst; F41.9 Anxiety disorder, unspecified; B37.9 Candidiasis, unspecified; Z80.0 Family history of malignant neoplasm of digestive organs; Z87.891 Personal history of nicotine dependence; Z68.29 Body mass index [BMI] 29.0-29.9, adult | CPT/HCPCS: 99212 ==

== ENCOUNTER 2025-02-08 21:44 | Inpatient (IN) | payer OTHER, SELFPAY ==
--- NOTE | ~2025-02-08 | XR_ITS ---
CLINICAL HISTORY: OD, bystander CPR, r o rib fx 1 view chest x-ray Comparison: None Findings: The lungs are clear. Normal size heart. No acute fracture. IMPRESSION: 1. No acute findings. This document has been electronically signed by: Lisa Dyer MD on 02/08/2025 23:10:56
[2025-02-08 21:50] VITALS: BP 118/55; PULSE 76; O2SAT 95
[2025-02-08 21:55] VITALS: BP 140/81; PULSE 79; RESP 16; TEMP 36.8; O2SAT 92; BMI 30.4
--- NOTE | 2025-02-08 21:57 | ECG_ITS ---
Test Reason : BYSTANDER CPR Blood Pressure : */* mmHG Vent. Rate : 78 BPM Atrial Rate : 78 BPM P-R Int : 184 ms QRS Dur : 130 ms QT Int : 456 ms P-R-T Axes : 40 6 -50 degrees QTcB Int : 519 ms Normal sinus rhythm Non-specific intra-ventricular conduction block T wave abnormality, consider inferior ischemia T wave abnormality, consider anterolateral ischemia Abnormal ECG When compared with ECG of 02-Feb-2023 01:18, T wave inversion now evident in Inferior leads T wave inversion more evident in Anterolateral leads Referred By: Claudia Stuart Electronically Signed By: SARAH MOHAMUD
--- NOTE | 2025-02-08 22:01 | ED.OVERDOSE ---
HPI - Overdose General Chief Complaint: ETOH/Substance Use Stated Complaint: OD Time Seen by Provider: 02/08/25 21:50 Source: patient and EMS Mode of arrival: EMS Limitations: no limitations History of Present Illness ED Provider: Dr. Claudia Stuart HPI Narrative: Patient comes to the emergency room via EMS after having an overdose. According to the patient, he purchased [address] the [address] and accidentally overdose. Patient denies SI or HI. According to EMS, they were called for an overdose, seems that bystanders gave the patient intranasal Narcan a total of 12 mg, and it is unclear whether they started CPR or not. Patient denies chest pain but is holding his chest with his hand. Complaining mostly of nausea, no abdominal pain. Related Data Previous Rx's ?Medication ?Instructions ?Recorded clotrimazole-betamethasone 1 1 appl topical BID 2 weeks #45 02/11/23 %-0.05 % topical cream grams albuterol sulfate 90 mcg/actuation 2 puff PO Q4-6H PRN for wheezing 01/20/24 aerosol inhaler (Ventolin HFA) #18 ea allopurinol 300 mg tablet 300 mg PO DAILY #90 tabs 01/13/25 chlorthalidone 25 mg tablet 25 mg PO DAILY #90 tabs 01/13/25 fenofibrate 160 mg tablet 160 mg PO DAILY #90 tabs 01/13/25 fluoxetine 40 mg capsule 40 mg PO QAM #90 caps 01/13/25 fluticasone propionate 50 1 spray intranasal DAILY #9.9 mL 01/13/25 mcg/actuation nasal spray,suspension ibuprofen 800 mg tablet 800 mg PO TID PRN Pain #90 tabs 01/13/25 levothyroxine 125 mcg tablet 125 mcg PO DAILY #90 tabs 01/13/25 loratadine 10 mg tablet (Claritin) 10 mg PO DAILY PRN allergy 01/13/25 symptoms #30 tabs metoprolol tartrate 50 mg tablet 50 mg PO BID #60 tabs 01/13/25 multivitamin 1 tab PO DAILY #30 tabs 01/13/25 nystatin 100,000 unit/gram topical 3 appl topical QID #60 grams 01/13/25 cream omeprazole 20 mg capsule,delayed 20 mg PO DAILY #90 caps 01/13/25 release potassium chloride 20 mEq 20 meq PO DAILY #30 tabs 01/13/25 tablet,extended release(part/cryst) (Klor-Con M) prednisone 20 mg tablet 20 mg PO DAILY 5 days #5 tabs 01/13/25 quetiapine 100 mg tablet 100 mg PO BEDTIME #90 tabs 01/13/25 sennosides 8.6 mg tablet (senna) 8.6 mg PO BEDTIME #90 tabs 01/13/25 simvastatin 40 mg tablet 40 mg PO DAILY #90 tabs 01/13/25 sulfamethoxazole 800 1 tab PO BID 10 days #20 tabs 01/13/25 mg-trimethoprim 160 mg tablet (Bactrim DS) thiamine HCl (vitamin B1) 500 mg 500 mg PO DAILY #30 tabs 01/13/25 tablet tiotropium bromide 2.5 2 puff inhalation DAILY #4 grams 01/13/25 mcg/actuation mist for inhalation (Spiriva Respimat) trazodone 100 mg tablet 100 mg PO BEDTIME PRN sleep #30 01/13/25 tabs azithromycin 250 mg tablet See Rx Instructions PO .COMPLEX #6 01/19/25 tabs clonazepam 1 mg tablet 1 mg PO BID-TID #90 tabs 02/01/25 Allergies Allergy/AdvReac Type Severity Reaction Status Date / Time No Known Drug Allergies Allergy Unknown none Verified 02/08/25 22:02 Fruit skins Allergy Unknown Unknown Uncoded 01/13/25 16:30 Review of Systems Review of Systems: Constitutional : No Weight loss, No Fever, No Chills, No Night Sweats, No Fatigue, No Malaise ENT/Mouth : No Hearing loss, No Ear Pain, No Nasal Congestion, No Sinus Pain, No Hoarseness, No sore throat, No Rhinorrhea, No Swallowing Difficulty Eyes: No Eye Pain, No Swelling, No Redness, No Foreign Body, No Discharge, No Vision Changes Cardiovascular : No Chest Pain, No SOB, No Dyspnea on Exertion, No Orthopnea, No Edema, No Palpitations Respiratory : No Cough, No Sputum, No Wheezing, No Smoke Exposure, No Dyspnea Gastrointestinal : Complaining of Nausea, No Vomiting, No Diarrhea, No Constipation, No abdominal Pain, No Hematochezia, No Melena Genitourinary : no irregular bleeding, No Dysuria, No Urinary Frequency, No Hematuria, No Urinary Incontinence, No Urgency, No Flank Pain, No Urinary Flow Changes, No Hesitancy Musculoskeletal : No joint pain, No Myalgias, No Joint Swelling Skin : No Skin Lesions, No rash Neuro : No Weakness, No Numbness, No Paresthesias, No Loss of Consciousness, No Dizziness, No Headache Psych : No Anxiety/Panic, No Depression, No SI/HI/AH/VH, accidental overdose with street oxycodone Heme/Lymph: No Bruising, No Bleeding,No Lymphadenopathy Endocrine : No Polyuria, No Polydipsia, No Temperature Intolerance [facility] Past Medical History Medical History Physical exam Alcohol use disorder Mood disorder Substance use disorder Hypothyroidism Hypertension Obesity Surgical History No pertinent past surgical history Family History Family History Father No problems noted. Mother No problems noted. Social History Social History Household Members: None Housing: Apartment Do you presently have visiting nurse or other home services: No Alcohol intake: former Patient Tobacco Use Status: Former Tobacco user Years Smoked: 8 years e-Cigarette/Vaping Use: Never Used Second Hand Smoke Exposure: Yes Use of substances other than those prescribed or required for medical reasons: Yes Advance Directives: No Advance Directives Information Provided: No Do you have a plan to hurt others: No Plan service: No Current occupational status: employed Current occupational exposures/hazards: No Cognitive needs: No Hearing needs: No Vision needs: No Physical Exam Vital Signs: Vital Signs: Last Vital Signs Temp 97.9 F 02/09/25 02:00 Pulse 77 02/09/25 02:00 Resp 12 02/09/25 02:00 BP 136/85 02/09/25 02:00 Pulse Ox 95 02/09/25 02:00 O2 Del Method Room Air 02/09/25 02:00 BMI result Body Mass Index 30.4 Const: Other: Appearance: Alert. Oriented X3. No acute distress. Somnolent but easily arousable Eyes: Pupils equal, round and reactive to light. ENT: Pharynx normal. Neck: Normal inspection. Neck supple. No lymph nodes noted. No crepitus CVS: Normal heart rate and rhythm. Pulses normal. Normal S1 and S2 Respiratory: No respiratory distress. Breath sounds normal. No Wheezing. No rales Abdomen: Soft and nontender. No rigidity. No distention. Skin: Skin warm and dry. Normal skin color. Normal skin turgor. Extremities: No lower extremity edema. No Lacerations. No Rash Neuro: Oriented X 3. No motor deficit. No sensory deficit. Moving all extremities. No slurred speech. CN 2 through 12 grossly intact Psych: calm, cooperative, normal affect Course Course Course Narrative: Patient is coming in for an accidental overdose with Street oxycodone. Patient adamant that this was accidental, not a suicidal attempt. Patient denies HI Per EMS, it was very unclear from bystanders whether the patient got CPR in the field by the bystanders. Patient did get 12 mg of intranasal Narcan. Patient denies chest pain, complaining of nausea All of patient's labs pending Patient will be on continuous O2 and vitals monitoring Medications Administered Discontinued Medications Generic Name Dose Route Start Last Admin Trade Name Hersonq PRN Reason Stop Dose Admin Acetaminophen 975 mg 02/09/25 00:40 02/09/25 00:43 Acetaminophen 325 Mg Tablet PO 02/09/25 00:41 975 mg ONCE ONE Administration Magnesium Sulfate 2 gm in 50 mls @ 25 mls/hr 02/08/25 23:40 02/09/25 02:03 Magnesium Sulfate/H2o IV 02/09/25 01:39 Infused ONCE ONE Infusion Sodium Chloride 1,000 mls @ 999 mls/hr 02/08/25 23:40 02/09/25 01:22 Ns IVCONT 02/09/25 00:40 Infused .Q1H1M ONE Infusion Ondansetron HCl 4 mg 02/08/25 21:57 02/08/25 22:08 Ondansetron Odt 4 Mg Tab.Rapdis TRANSLINGU 02/08/25 21:58 4 mg ONCE ONE Administration Potassium Chloride 80 meq 02/08/25 23:40 02/09/25 00:03 Potassium Chloride Packet 20 Meq Packet PO 02/08/25 23:41 80 meq ONCE ONE Administration Medical Decision Making Medical Decision Making [facility] Narrative: Interpretation of labs, no significant abnormality patient's hematology, chemistry shows hyponatremia, hypokalemia, hypomagnesemia., positive EtOH 152, troponin negative Chest x-ray negative for any acute abnormality, no fracture ribs or sternum My interpretation of EKG: Normal sinus rhythm, heart rate 78, nonspecific T-wave inversions in V2 through V5, chronic, no changes from previous EKGs since 2022, QTC 519. Patient received magnesium. Patient received IV fluids, p.o. potassium, IV magnesium. Patient's electrolytes did improve a bit but he still needs more potassium and also the sodium actually decreased. I discussed the patient with Dr. Brito, patient to be admitted. Differential Diagnosis Differential Diagnoses: The differential diagnosis associated with the presentation includes (Accidental overdose, alcohol abuse/intoxication, electrolyte abnormality) Admission/Observation Consideration of admission/observation: Escalation of care including admission/observation considered Consult Healthcare Provider Management of the patient was discussed with: Hospitalist Lab Data MDM Lab Attestation statement: I reviewed the patient's lab results. 02/08/25 22:17 02/09/25 02:03 Labs: Lab Results 02/08/25 02/09/25 Range/Units 22:17 02:03 WBC 7.2 (4.8-10.8) X10*3/uL RBC 5.02 (4.60-5.80) X10*6/uL Hgb 16.2 (14.0-18.0) g/dl Hct 43.9 (42.0-52.0) % MCV 87.5 (80.0-98.0) fL MCH 32.3 (27.0-33.0) pg MCHC 36.9 H (31.0-36.0) g/dl RDW 12.7 (11.0-16.0) % Plt Count 236 (160-400) X10*3/uL MPV 9.9 (9.4-12.4) fL Immature Gran % (Auto) 2.1 H (0.0-0.4) % Neut % (Auto) 72.4 (45-73) % Lymph % (Auto) 17.6 L (20-40) % [place] % (Auto) 5.8 (2-11) % Eos % (Auto) 1.7 (0-4) % Baso % (Auto) 0.4 (0-2) % Lymph # (Auto) 1.3 (1.2-4.9) X10*3/uL [place] # (Auto) 0.4 (0.1-1.2) X10*3/uL Eos # (Auto) 0.1 (0.0-0.4) X10*3/uL Baso # (Auto) 0.0 (0.0-0.2) X10*3/uL Abs Immat Gran (auto) 0.15 H (0.00-0.03) X10*3/uL Absolute Neuts (auto) 5.2 (2.0-8.3) x10*3/uL Absolute Nucleated RBC 0.000 (0.0-0.012) X10*3/uL Nucleated RBC % (auto) 0.0 (0.0-0.2) /100WBC Sodium 129 L 128 L (135-145) mmol/L Potassium 2.6 L* 3.1 L (3.3-5.1) mmol/L Chloride 90 L 90 L (96-108) mmol/L Carbon Dioxide 24 25 (22-29) mmol/L Anion Gap 18 16 (12-20) BUN 6 L 6 L (9-16) mg/dL Creatinine 0.85 0.67 (0.5-1.4) mg/dL Estim Creat Clear Calc 109.9 139.5 Estimated GFR > 60 > 60 Random Glucose 125 H 110 (60-115) mg/dL Calcium 9.2 D 8.6 D (8.4-10.2) mg/dL Magnesium 1.3 L* 1.8 (1.6-2.6) mg/dL Total Bilirubin 0.8 (0.0-1.0) mg/dL Direct Bilirubin 0.2 (0.0-0.5) mg/dL AST 47 H (5-37) U/L ALT 38 (0-40) U/L Alkaline Phosphatase 85 (39-117) U/L Troponin I High Sens < 2.7 D (<3.5-35.0) ng/L Total Protein 6.9 (6.5-8.0) g/dL Albumin 3.9 (3.5-5.0) g/dL Ethyl Alcohol 152 mg/dL Independent Interpretation I performed an independent interpretation of an: EKG and Plain X-Ray Radiology Impression Discussion of test interpretation with radiology: I have reviewed the radiologist's reading. Radiologist Impression: The lungs are clear. Normal size heart. No acute fracture. IMPRESSION: 1. No acute findings Critical Care Time Critical Care Time Critical Care Time: Yes Total Critical Care Time: 60 Attestation: I have personally provided critical care time. Time includes review of lab data, radiology results, discussion with consultants, and monitoring for potential decompensation. Intervention performed as documented. Discharge Plan Discharge Clinical Impression: Accidental overdose, Alcohol intoxication, Hypomagnesemia, Acute hyponatremia, Acute hypokalemia Patient Disposition: Admitted As Inpatient Prescriptions: No Action albuterol sulfate [Ventolin HFA] 90 mcg/actuation HFA aerosol inhaler 2 puff PO Q4-6H PRN (Reason: for wheezing) Qty: 18 3RF azithromycin 250 mg tablet See Rx Instructions PO .COMPLEX Qty: 6 0RF Rx Instructions: For 250 mg dose pack: take 500 mg today (day 1), then 250 mg for 4 days (days 2-5) PO clonazepam 1 mg tablet 1 mg PO BID-TID Qty: 90 0RF clotrimazole-betamethasone 1-0.05 % cream 1 appl topical BID 14 Days Qty: 45 0RF allopurinol 300 mg tablet 300 mg PO DAILY Qty: 90 0RF chlorthalidone 25 mg tablet 25 mg PO DAILY Qty: 90 7RF fenofibrate 160 mg tablet 160 mg PO DAILY Qty: 90 7RF fluoxetine 40 mg capsule 40 mg PO QAM Qty: 90 1RF fluticasone propionate 50 mcg/actuation spray,suspension 1 spray intranasal DAILY Qty: 9.9 2RF Rx Instructions: administer into each nostril ibuprofen 800 mg tablet 800 mg PO TID PRN (Reason: Pain) Qty: 90 2RF levothyroxine 125 mcg tablet 125 mcg PO DAILY Qty: 90 2RF metoprolol tartrate 50 mg tablet 50 mg PO BID Qty: 60 8RF multivitamin Tablet 1 tab PO DAILY Qty: 30 0RF nystatin 100,000 unit/gram cream 3 appl topical QID Qty: 60 3RF omeprazole 20 mg capsule,delayed release(DR/EC) 20 mg PO DAILY Qty: 90 0RF quetiapine 100 mg tablet 100 mg PO BEDTIME Qty: 90 0RF sennosides [senna] 8.6 mg tablet 8.6 mg PO BEDTIME Qty: 90 0RF simvastatin 40 mg tablet 40 mg PO DAILY Qty: 90 0RF thiamine HCl (vitamin B1) 500 mg tablet 500 mg PO DAILY Qty: 30 0RF Spiriva Respimat 2.5 mcg/actuation mist 2 puff inhalation DAILY Qty: 4 7RF trazodone 100 mg tablet 100 mg PO BEDTIME PRN (Reason: sleep) Qty: 30 3RF potassium chloride [Klor-Con M20] 20 mEq tablet,ER particles/crystals 20 meq PO DAILY Qty: 30 3RF sulfamethoxazole-trimethoprim [Bactrim DS] 800-160 mg tablet 1 tab PO BID 10 Days Qty: 20 0RF loratadine [Claritin] 10 mg tablet 10 mg PO DAILY PRN (Reason: allergy symptoms) Qty: 30 3RF prednisone 20 mg tablet 20 mg PO DAILY 5 Days Qty: 5 0RF Print Language: Hebrew
[2025-02-08] MEDS: Ondansetron ODT 4 MG TAB.RAPDIS TRANSLINGU (22:08)
[2025-02-08 22:21] LABS: MANUAL DIFF FLAG NO
[2025-02-08 22:22] LABS: Basophils Percent Auto 0.4 % (0-2); Eosinophils Absolute Auto 0.1 X10*3/uL (0.0-0.4); Eosinophils Percent Auto 1.7 % (0-4); Hematocrit 43.9 % (42.0-52.0); Hemoglobin 16.2 g/dl (14.0-18.0); Imm Gran Abs Auto 0.15 X10*3/uL (0.00-0.03); Imm Gran Pct Auto 2.1 % (0.0-0.4); Lymphocytes Absolute Auto 1.3 X10*3/uL (1.2-4.9); Lymphocytes Percent Auto 17.6 % (20-40); Mean Corpuscular HGB Conc 36.9 g/dl (31.0-36.0); Mean Corpuscular Hemoglobin 32.3 pg (27.0-33.0); Mean Corpuscular Volume 87.5 fL (80.0-98.0); Mean Platelet Volume 9.9 fL (9.4-12.4); Monocytes Absolute Auto 0.4 X10*3/uL (0.1-1.2); Monocytes Percent Auto 5.8 % (2-11); Neutrophils Absolute Auto 5.2 x10*3/uL (2.0-8.3); Neutrophils Percent Auto 72.4 % (45-73); Platelet Count 236 X10*3/uL (160-400); Red Blood Count 5.02 X10*6/uL (4.60-5.80); Red Cell Distribution Width 12.7 % (11.0-16.0); White Blood Count 7.2 X10*3/uL (4.8-10.8)
[2025-02-08 22:42] LABS: Alanine Aminotransferase 38 U/L (0-40); Albumin Level 3.9 g/dL (3.5-5.0); Alkaline Phosphatase 85 U/L (39-117); Anion Gap 18 (12-20); Aspartate Amino Transferase 47 U/L (5-37); Bilirubin Direct 0.2 mg/dL (0.0-0.5); Bilirubin Total 0.8 mg/dL (0.0-1.0); Blood Urea Nitrogen 6 mg/dL (9-16); Calcium 9.2 mg/dL (8.4-10.2); Carbon Dioxide 24 mmol/L (22-29); Chloride 90 mmol/L (96-108); Creatinine Clr Calc Pharmacy 109.9; Estimated Glomerular Filt Rate > 60; Ethanol 152 mg/dL; Glucose Random 125 mg/dL (60-115); Magnesium 1.3 mg/dL (1.6-2.6); Potassium 2.6 mmol/L (3.3-5.1); Sodium 129 mmol/L (135-145); Total Protein 6.9 g/dL (6.5-8.0)
[2025-02-08 22:47] LABS: Troponin-I High Sensitivity < 2.7 ng/L (<3.5-35.0)
[2025-02-09] MEDS: 0.9 % Sodium Chloride 1,000 ML 999 ML IVCONT (00:03)
[2025-02-09] MEDS: Magnesium Sulfate/H2O 2 GM/50 ML PIGGYBACK IV (00:03)
[2025-02-09] MEDS: Potassium Chloride Packet 20 MEQ PACKET 80 MEQ PO (00:03)
[2025-02-09] MEDS: Acetaminophen 325 MG TABLET 975 MG PO (00:43)
[2025-02-09 02:00] VITALS: BP 136/85; PULSE 77; RESP 12; TEMP 36.6; O2SAT 95
[2025-02-09 02:24] LABS: Anion Gap 16 (12-20); Blood Urea Nitrogen 6 mg/dL (9-16); Calcium 8.6 mg/dL (8.4-10.2); Carbon Dioxide 25 mmol/L (22-29); Chloride 90 mmol/L (96-108); Creatinine Clr Calc Pharmacy 139.5; Estimated Glomerular Filt Rate > 60; Glucose Random 110 mg/dL (60-115); Magnesium 1.8 mg/dL (1.6-2.6); Potassium 3.1 mmol/L (3.3-5.1); Sodium 128 mmol/L (135-145)
[2025-02-09 05:07] VITALS: BP 125/89; PULSE 77; RESP 14; TEMP 36.4; O2SAT 95
[2025-02-09 05:29] LABS: Amphetamine Screen Urine Not Detected (Not Detect); Barbiturates, Urine Not Detected (Not Detect); Benzodiazepines Screen Urine POSITIVE (Not Detect); Buprenorphine Scr Not Detected (Not Detect); Cannabinoid Screen Urine POSITIVE (Not Detect); Cocaine Screen Urine Not Detected (Not Detect); Fentanyl, urine POSITIVE (Not Detect); Methadone Screen, Urine Not Detected (Not Detect); Opiate Screen Urine Not Detected (Not Detect); Oxycodone Screen Urine Not Detected (Not Detect); Phencyclidine Screen Urine Not Detected (Not Detect)
--- NOTE | 2025-02-09 05:36 | P.HPHOSP_ITS ---
History of Present Illness Date of Service: 02/09/25 Attending physician on admission: Michael Brito Chief Complaint: OD Patient is a 55-year-old male with a past medical history significant for BPH, oa, gout, HTN, hypothyroid, chronic low back pain, class 1 obesity, alcohol abuse, who presented to the ED after witnessed overdose requiring CPR and 12 doses of Narcan. Patient reports that he has been nauseous and diaphoretic and having abdominal cramping. He purchased 30 mg of oxycodone on the streets due to his abdominal cramping which he experiences intermittently chronically. He purchases after having many alcoholic beverages. He reports he has a history of taking prescription pain medication but stopped this years ago. He does take clonazepam for mood disorder. He reports his last alcoholic beverages around 19:00 last night. He is having chest discomfort with palpation due to recent CPR. Review of Systems 2 Constitutional: Constitutional: Denies chills, Denies fatigue, Denies fever(s) and Reports headache(s) Eyes: Eyes: Denies change in vision and Denies photophobia ENT: Reports headache(s), Denies nasal congestion and Denies sore throat Cardiovascular: Cardiovascular: Reports chest pain, Denies rapid heart rate, Denies leg edema, Denies lightheadedness and Denies dyspnea Respiratory: Respiratory: Denies chest congestion, Denies cough, Denies dyspnea and Denies wheezing Gastrointestinal: Gastrointestinal: Reports GI cramping, Denies diarrhea, Reports nausea and Denies vomiting Genitourinary: Genitourinary: Denies oliguria, Denies urinary frequency and Denies urinary urgency Musculoskeletal: Musculoskeletal: Denies myalgias Integumentary/Breasts: Skin/Breast: Denies rash Neurologic: Denies confusion and Reports headache(s) Psychiatric: Psychiatric: Denies confusion Endocrine: Endocrine: Denies fatigue Hematologic/Lymphatic: Hematologic/Lymphatic: Denies easy bleeding and Denies easy bruising Allergic/Immunologic: Allergic/Immunologic: Denies wheezing PMFSH Medical History Physical exam Alcohol use disorder Mood disorder Substance use disorder Hypothyroidism Hypertension Obesity Family History Father No problems noted. Mother No problems noted. Surgical History No pertinent past surgical history Social History Household Members: None Housing: Apartment Do you presently have visiting nurse or other home services: No Alcohol intake: former Patient Tobacco Use Status: Former Tobacco user Years Smoked: 8 years e-Cigarette/Vaping Use: Never Used Second Hand Smoke Exposure: Yes Use of substances other than those prescribed or required for medical reasons: Yes Advance Directives: No Advance Directives Information Provided: No Do you have a plan to hurt others: No Plan service: No Current occupational status: employed Current occupational exposures/hazards: No Cognitive needs: No Hearing needs: No Vision needs: No Narrative: Occasional marijuana use. Reports using alcohol every other day. occasional street pain meds . no tobacco use. Meds Allergies Allergy/AdvReac Type Severity Reaction Status Date / Time No Known Drug Allergies Allergy Unknown none Verified 02/08/25 22:02 Fruit skins Allergy Unknown Unknown Uncoded 01/13/25 16:30 Physical Exam 2 Vital Signs and Narrative: Vital Signs: Last Vital Signs Temp 97.6 F 02/09/25 05:07 Pulse 77 02/09/25 05:07 Resp 14 02/09/25 05:07 BP 125/89 02/09/25 05:07 Pulse Ox 95 02/09/25 05:07 O2 Del Method Room Air 02/09/25 05:07 BMI result Body Mass Index 30.4 General: AOx3, no acute distress, appears intoxicated, slurred speech Resp: CTA bilaterally, no wheezing or rhonchi CVS: S1, S2, RRR GI: +BS, NT, no distention Skin: Warm, dry Neuro: Cranial nerves II-XII grossly intact bilaterally. Motor grossly intact bilaterally Extremities: No LE edema Psych: Appropriate affect Const: General: No confusion Orientation/consciousness: No confusion Eyes: Direct Ophthalmoscopy: No photophobia Neuro: General: No confusion Results Labs 02/08/25 22:17 02/09/25 02:03 Labs: Laboratory Results - last 24 hr 02/08/25 02/09/25 02/09/25 22:17 02:03 05:12 MCV 87.5 MCH 32.3 MCHC 36.9 H RDW 12.7 Plt Count 236 MPV 9.9 Immature Gran % (Auto) 2.1 H Neut % (Auto) 72.4 Lymph % (Auto) 17.6 L [place] % (Auto) 5.8 Eos % (Auto) 1.7 Baso % (Auto) 0.4 Lymph # (Auto) 1.3 [place] # (Auto) 0.4 Eos # (Auto) 0.1 Baso # (Auto) 0.0 Abs Immat Gran (auto) 0.15 H Absolute Neuts (auto) 5.2 Absolute Nucleated RBC 0.000 Nucleated RBC % (auto) 0.0 Anion Gap 18 16 Estim Creat Clear Calc 109.9 139.5 Estimated GFR > 60 > 60 Random Glucose 125 H 110 Calcium 9.2 D 8.6 D Magnesium 1.3 L* 1.8 Total Bilirubin 0.8 Direct Bilirubin 0.2 AST 47 H ALT 38 Alkaline Phosphatase 85 Troponin I High Sens < 2.7 D Total Protein 6.9 Albumin 3.9 Urine Opiates Screen Not Detected Ur Buprenorphine Scrn Not Detected Ur Oxycodone Screen Not Detected Urine Methadone Screen Not Detected Urine Fentanyl Screen POSITIVE H Ur Barbiturates Screen Not Detected Ur Phencyclidine Scrn Not Detected Ur Amphetamines Screen Not Detected U Benzodiazepines Scrn POSITIVE H Urine Cocaine Screen Not Detected U Marijuana (THC) Screen POSITIVE H Ethyl Alcohol 152 Assessment and Plan (1) Toxic encephalopathy: Status: Acute (2) Alcohol intoxication: Status: Acute (3) Overdose: Status: Acute (4) Opioid use disorder: Status: Acute (5) Alcohol use disorder: Status: Acute (6) Acute hypokalemia: Status: Acute (7) Acute hyponatremia: Status: Acute (8) Hypomagnesemia: Status: Acute (9) Obesity: Qualifiers: Obesity classification: unspecified obesity classification Obesity type: unspecified obesity type Serious obesity comorbidity presence: u nspecified whether serious comorbidity present Qualified Code(s): E66.9 - Obesity, unspecified Status: Acute Plan Patient is a 55-year-old male with a past medical history significant for BPH, oa, gout, HTN, hypothyroid, chronic low back pain, class 1 obesity, alcohol abuse, who presented to the ED after witnessed overdose requiring CPR and 12 doses of Narcan. Toxic encephalopathy secondary to alcohol intoxication and overdose - alcohol level 152 - UTox positive fentanyl, benzos, marijuana - chest x-ray negative - addiction med consult - monitor CIWA Opioid use disorder/alcohol use disorder - addiction med consult as above Hyponatremia hypokalemia, hypomagnesemia - potassium 2.6, given 80 mEq p.o. now up to 3.1 - K chronically low, pt on dialy supplement - magnesium 0.3, given 2 g IV and improved to 1.8 - sodium 129, repeat 128, given 1 L NS - tolerating PO, requesting to eat and drink BPH - continue home meds OA - continue home meds Gout - continue home meds Hypothyroid - continue levothyroxine Class 1 obesity - BMI 30.4 - weight loss encouraged Full code VTE prophylaxis: Lovenox Patient with toxic encephalopathy secondary to alcohol intoxication and overdose, complicated by electrolyte abnormalities, requiring admission for at least 2 midnight stay for electrolyte repletion, monitoring and specialist consultation. Quality Stroke Does the patient have a stroke diagnosis?: No VTE Prior VTE?: No VTE Risk Level:: Medical - moderate - high VTE Device Contraindication: Treatment Not Indicated VTE Drug Contraindication: N/A - Med Ordered
[2025-02-09] MEDS: ondansetron HCL 4 MG/2 ML VIAL IVPUSH (06:28)
[2025-02-09] MEDS: Butalb/Acetamin/Caff 50/325/40 TABLET 1 TAB PO (06:29)
[2025-02-09] MEDS: Enoxaparin Sodium 40 MG/0.4 ML SYRINGE SUBCUT (06:29)
--- NOTE | 2025-02-09 07:44 | PM.EVENT ---
Event Note Date of Service: 02/09/25 Event Note: Seen and examined admitted this morning from fentanyl od, required narcan x 12, cpr Patient is a 55-year-old male with a past medical history significant for BPH, oa, gout, HTN, hypothyroid, chronic low back pain, class 1 obesity, alcohol abuse, who presented to the ED after witnessed overdose with fentanyl requiring CPR and 12 doses of Narcan. Toxic encephalopathy secondary alcohol intoxication, opioid OD (fentanyl), benzo. Tox screen + fentanyl, benzo and canabis Addiction med consult HypOnatremia, hypOkalemia, hypOmagnesemia--due to chlorthalidone, stop it recheck later today BPH continue home meds OA continue home meds Gout continue home meds Hypothyroid continue levothyroxine Class 1 obesity BMI 30.4 weight loss encouraged Full code VTE prophylaxis: Lovenox Patient with toxic encephalopathy secondary to alcohol intoxication and overdose, complicated by electrolyte abnormalities, requiring admission for at least 2 midnight stay for electrolyte repletion, monitoring and specialist consultation. Time Spent With Patient Time: Total time managing care of this patient today ____ minutes.
[2025-02-09 08:12] VITALS: BP 120/86; PULSE 67; RESP 12; TEMP 36.3; O2SAT 95
--- NOTE | 2025-02-09 08:20 | PHA.MEDREC ---
Pharmacy Consult ? Medication Reconciliation Pharmacy has completed the medication reconciliation. Spoke to patient at bedside, he knew his medications with some prompting from fill history. Compared to claims to complete. He states he took his clonazepam, fluoxetine, quetiapine, and trazodone yesterday but hasn't taken the rest of his medications in about 3 days.
[2025-02-09] MEDS: 0.9 % Sodium Chloride Flush 3 ML SYRINGE IVFLUSH (08:37)
--- NOTE | 2025-02-09 08:49 | MHC.CM.PN ---
CM met with Patient at bedside, in the ED. Patient lives alone in an apartment and he uses a cane or a walker during Gout flareups. Home self care vs Recovery Team intervention r/t Fentanyl Overdose is the tentative plan and CM has initiated and will follow for dc planning. PCP/[facility] HELPER is Geronimo Burns and Patient's HCP Agent recently . A Friend/Suzanne @ [phone] will transport to home at time of dc.
--- NOTE | 2025-02-09 09:51 | PC.NURSE ---
pt states he takes all his meds at night and will not take them now, pharmacy informed and I asked them to switch his meds to PM
--- NOTE | 2025-02-09 11:59 | HO.ADDICT_ITS ---
History of Present Illness Date of Service: 02/09/2025 Chief Complaint: OD Reason for Consult: opioid overdose requiring narcan Sources of Information: patient interviewed and chart reviewed HPI Narrative: Patient is a 55 year old male who presented to [facility] ED following opioid overdose requiring narcan and CPR. Patient seen in ED bed 12. He is awake, alert, engaged in interview. He reports that over 6 years ago his oxycodone prescription was abrupltly discontinued. Since then he states he has been buying pills on the street at most 6 time a year . He reports doing this when pain is exacerbated and does not crave them or use them more than once. He states that prior to overdose, he bought a 15mg percocet and took it orally. He was in a car with a friend when the overdose occurred. He also acknowledges drinking 5-6 shots and several beers that day. Denies any history or overdose, but does acknowledge that a couple of years ago he was told UDS showed fentanyl after he had purchased pill on the street. He shows some reluctance to acknowledge that pressed pills are what he has been purchasing, despite UDS results showing fentnayl and no oxycodone present. Much of his emphasis was on the fact that this is something he does very infrequently. Denies any history of heroin use, denies history of cocaine use Denies any history of ATS level of care Completed IOP following incarceration (2006) Discussed alcohol use He reports on average drinking 2-3 beers daily Reports abstaining from alcohol use from age [age] when he was gerald focused on the gym, and also [id number] during and after incarceration while on probation He does not feel that his alcohol use is impacting his life negatively in any way Past Psychiatric History: hosps: denies suicide attempts: denies self-injurious behavior: denies h/o court-mandated IOP at [facility] for AUD. h/o therapy for periods over years and psych meds for the past [address] gale first, then prescribers in his practice. was taking klonopin 1 TID, seroquel 100 at HS, and prozac (unsure of dose). trauma: denies Medical Evaluation Reviewed: Yes Review of Systems Constitutional: Reports as per HPI and Reports difficulty sleeping Gastrointestinal: Reports abdominal pain and Reports nausea Musculoskeletal: Reports myalgias Psychiatric: Reports anxiety Diagnostics Vital Signs (24Hr): Vital Signs - 24 hr 02/08/25 21:55 02/09/25 02:00 02/09/25 05:07 Temperature 98.3 F 97.9 F 97.6 F Pulse Rate 79 77 77 Respiratory Rate 16 12 14 Blood Pressure 140/81 H 136/85 125/89 Pulse Oximetry 92 95 95 Oxygen Delivery Method Room Air Room Air Room Air 02/09/25 08:12 Temperature 97.3 F Pulse Rate 67 Respiratory Rate 12 Blood Pressure 120/86 Pulse Oximetry 95 Oxygen Delivery Method Room Air BMI result Body Mass Index 30.4 Labs 02/08/25 22:17 02/09/25 12:17 Labs: Laboratory Results - last 48 hr 02/08/25 02/09/25 02/09/25 22:17 02:03 05:12 WBC 7.2 RBC 5.02 Hgb 16.2 Hct 43.9 MCV 87.5 MCH 32.3 MCHC 36.9 H RDW 12.7 Plt Count 236 MPV 9.9 Immature Gran % (Auto) 2.1 H Neut % (Auto) 72.4 Lymph % (Auto) 17.6 L [place] % (Auto) 5.8 Eos % (Auto) 1.7 Baso % (Auto) 0.4 Lymph # (Auto) 1.3 [place] # (Auto) 0.4 Eos # (Auto) 0.1 Baso # (Auto) 0.0 Abs Immat Gran (auto) 0.15 H Absolute Neuts (auto) 5.2 Absolute Nucleated RBC 0.000 Nucleated RBC % (auto) 0.0 Sodium 129 L 128 L Potassium 2.6 L* 3.1 L Chloride 90 L 90 L Carbon Dioxide 24 25 Anion Gap 18 16 BUN 6 L 6 L Creatinine 0.85 0.67 Estim Creat Clear Calc 109.9 139.5 Estimated GFR > 60 > 60 Random Glucose 125 H 110 Calcium 9.2 D 8.6 D Magnesium 1.3 L* 1.8 Total Bilirubin 0.8 Direct Bilirubin 0.2 AST 47 H ALT 38 Alkaline Phosphatase 85 Troponin I High Sens < 2.7 D Total Protein 6.9 Albumin 3.9 Urine Opiates Screen Not Detected Ur Buprenorphine Scrn Not Detected Ur Oxycodone Screen Not Detected Urine Methadone Screen Not Detected Urine Fentanyl Screen POSITIVE H Ur Barbiturates Screen Not Detected Ur Phencyclidine Scrn Not Detected Ur Amphetamines Screen Not Detected U Benzodiazepines Scrn POSITIVE H Urine Cocaine Screen Not Detected U Marijuana (THC) Screen POSITIVE H Ethyl Alcohol 152 Mental Status Exam Mental Status Exam Patient Appearance: Appropriate Patient Orientation: Person, Place, Time and Situation Level of Consciousness: Awake, Appropriate and Alert Patient Behavior: Appropriate and Talkative Mood Description: Anxious Affect Description: Calm and Appropriate Speech Pattern: Clear Hallucinations: None Thought Process: Intact Thought Content: positive for Intact Judgement: Fair Medications Medications Current Medications Albuterol Sulfate (Albuterol Sulfate 90 Mcg 8 Gm Inhaler) 2 puff INHALE Q4H PRN PRN Reason: for wheezing Allopurinol (Allopurinol 300 Mg Tablet) 300 mg PO BEDTIME [facility] Atorvastatin Calcium (Atorvastatin Calcium 20 Mg Tablet) 20 mg PO DAILY [facility] Last Admin: 02/09/25 10:45 Dose: Not Given Calcium Carbonate (Calcium Carbonate 750 Mg Tab.Chew) 750 mg PO Q4H PRN PRN Reason: Heartburn Clonazepam (Clonazepam 1 Mg Tablet) 2 mg PO BEDTIME PRN PRN Reason: Anxiety Clonazepam (Clonazepam 1 Mg Tablet) 1 mg PO DAILY@1200 PRN PRN Reason: Anxiety Enoxaparin Sodium (Enoxaparin Sodium 40 Mg/0.4 Ml Syringe) 40 mg SUBCUT Q24H [facility] Last Admin: 02/09/25 06:29 Dose: 40 mg Fenofibrate (Fenofibrate 160 Mg Tablet) 160 mg PO BEDTIME [facility] Fluoxetine HCl (Fluoxetine Hcl 20 Mg Capsule) 40 mg PO DAILY [facility] Last Admin: 02/09/25 10:45 Dose: Not Given Fluticasone Propionate (Fluticasone Propionate Nasal 16 Gm [place]) 1 spray NOSTRIL-B DAILY [facility] Last Admin: 02/09/25 10:45 Dose: Not Given Levothyroxine Sodium (Levothyroxine Sodium 125 Mcg Tablet) 125 mcg PO BEDTIME [facility] Loratadine (Loratadine 10 Mg Tablet) 10 mg PO DAILY PRN PRN Reason: allergy symptoms Magnesium Hydroxide (Milk Of Magnesia 30 Ml Oral.Susp) 30 ml PO DAILY PRN PRN Reason: Constipation Melatonin (Melatonin 3 Mg Tablet) 6 mg PO BEDTIME PRN PRN Reason: Insomnia Metoprolol Tartrate (Metoprolol Tartrate 50 Mg Tablet) 50 mg PO BID [facility]; Protocol Last Admin: 02/09/25 10:45 Dose: Not Given Multivitamins/Vitamin C (Multivitamin Tablet) 1 tab PO DAILY [facility] Last Admin: 02/09/25 10:45 Dose: Not Given Nicotine (Nicotine 21 Mg Patch.Td24) 21 mg TRANSDERMA DAILY [facility] Last Admin: 02/09/25 08:38 Dose: Not Given Omeprazole (Omeprazole 20 Mg Capsule.Dr) 20 mg PO DAILY@0630 [facility] Last Admin: 02/09/25 10:45 Dose: Not Given Ondansetron HCl (Ondansetron Hcl 4 Mg/2 Ml Vial) 4 mg IVPUSH Q8H PRN PRN Reason: Nausea and Vomiting Last Admin: 02/09/25 06:28 Dose: 4 mg Potassium Chloride (Potassium Chloride Er 20 Meq Tab.Er.Prt) 20 meq PO DAILY [facility] Last Admin: 02/09/25 10:46 Dose: Not Given Quetiapine Fumarate (Quetiapine Fumarate 100 Mg Tablet) 100 mg PO BEDTIME [facility] Senna (Sennosides 8.6 Mg Tablet) 8.6 mg PO BEDTIME [facility] Sodium Chloride (0.9 % Sodium Chloride Flush 3 Ml Syringe) 3 ml IVFLUSH QSHIFT [facility] Last Admin: 02/09/25 08:37 Dose: 3 ml Thiamine HCl (Thiamine Hcl 100 Mg Tablet) 500 mg PO DAILY [facility] Last Admin: 02/09/25 10:46 Dose: Not Given Tiotropium [place] (Tiotropium [place] 2.5 Mcg 1 Puff/2.5 Mcg Mist.Inhal) 2 puff INHALE RDAILY [facility] Last Admin: 02/09/25 10:02 Dose: Not Given Tramadol HCl (Tramadol Hcl 50 Mg Tablet) 50 mg PO Q6H PRN PRN Reason: Pain, Moderate(Pain Scale 4-6) Trazodone HCl (Trazodone Hcl 100 Mg Tablet) 100 mg PO BEDTIME PRN PRN Reason: sleep Allergies Allergies Allergy/AdvReac Type Severity Reaction Status Date / Time No Known Drug Allergies Allergy Unknown none Verified 02/08/25 22:02 Fruit skins Allergy Unknown Unknown Uncoded 01/13/25 16:30 Assessment & Plan Assessment & Plan (1) Opioid use disorder: Status: Acute Code(s): F11.90 - Opioid use, unspecified, uncomplicated Assessment and Plan: * lengthy discussion around MOUD as a way to address pain and significantly decrease risk of fatal overdose. Patient initially very reluctant, then agreeable to buprenorphine trial at home. Did not want to start it here because he did not feel well. Attempted to provided reassurance that it would be okay to start here, however he still declined but was agreeable to have rx sent to his pharmancy and taking it at home. Reviewed how to take medication, side effects and goals of treatment * provided patient with many resources, including information for [facility] --he declined scheduling an appt for follow up there, but understands that he can call at any time * take home nacan and overdose prevention discussion * reinforced increased risk for overdose with mixing multiple sedating agents (klonopin, alcohol and pressed pills) Total time managing care of this patient today __55__ minutes. [facility] Past Medical History Medical History Physical exam Alcohol use disorder Mood disorder Substance use disorder Hypothyroidism Hypertension Obesity Family History Family History Father No problems noted. Mother No problems noted. Surgical History Surgical History No pertinent past surgical history Social History Social History Household Members: None Housing: Apartment Do you presently have visiting nurse or other home services: No Alcohol intake: former Patient Tobacco Use Status: Former Tobacco user Years Smoked: 8 years e-Cigarette/Vaping Use: Never Used Second Hand Smoke Exposure: Yes service: No Current occupational status: employed Current occupational exposures/hazards: No Cognitive needs: No Hearing needs: No Vision needs: No
--- NOTE | 2025-02-09 12:26 | P.DS_ITS ---
DS: Providers Provider Date of Service: 02/09/25 Date of admission: 02/09/25 05:02 Date of discharge: 02/09/25 Primary care physician: Osmel Mcclure MD Consults: 02/09/25 06:15 Addiction Medicine Provider Routine Consulting Provider: Addiction Covering Reason for consultation: OD Has provider been notified: No DS: Diagnosis Discharge Diagnosis (1) Opioid use disorder: Status: Acute DS: Summary Hospital Course Hospital Course: admission hpi Chief Complaint: OD Patient is a 55-year-old male with a past medical history significant for BPH, oa, gout, HTN, hypothyroid, chronic low back pain, class 1 obesity, alcohol abuse, who presented to the ED after witnessed overdose requiring CPR and 12 doses of Narcan. Patient reports that he has been nauseous and diaphoretic and having abdominal cramping. He purchased 30 mg of oxycodone on the streets due to his abdominal cramping which he experiences intermittently chronically. He purchases after having many alcoholic beverages. He reports he has a history of taking prescription pain medication but stopped this years ago. He does take clonazepam for mood disorder. He reports his last alcoholic beverages around 19:00 last night. He is having chest discomfort with palpation due to recent CPR. hospital course: Patient is a 55-year-old male with a past medical history significant for BPH, oa, gout, HTN, hypothyroid, chronic low back pain, class 1 obesity, alcohol abuse, who presented to the ED after a witnessed overdose with fentanyl which he acquired from the street, thinking he bought Percocet. He was unresponsive and required 12 doses of Narcan and reported CPR was initiated althought there is no clear documentation of loss of pulse. He has since returned to his baseline mental status and hemodynamically stable. Toxicology screen was positive for alcohol, fentanyl, benzo and canabis. He was additionally found to have low potasssium, and low sodium likely from chlorthalidone. Toxic encephalopathy secondary alcohol intoxication, opioid OD (fentanyl), benzo. Tox screen + fentanyl, benzo and canabis. He is back to his baseline. Addiction med has seen him and started on him on Suboxone and outpatient follow up HypOnatremia, hypOkalemia, hypOmagnesemia--due to chlorthalidone. Stopped and replacing with Lisinopril for HTN BPH continue home meds OA continue home meds Gout continue home meds Hypothyroid continue levothyroxine Class 1 obesity BMI 30.4 weight loss encouraged Time Attestation Discharge Coordination Time (in mins): 45 Quality: Safe Use of Opioids Does Pt have an Active Cancer Diagnosis on the Problem List?: No Quality: Stroke Does the patient have a stroke diagnosis?: No Physical Exam Vital Signs: Vital Signs: Last Vital Signs Temp 97.3 F 02/09/25 08:12 Pulse 67 02/09/25 08:12 Resp 12 02/09/25 08:12 BP 120/86 02/09/25 08:12 Pulse Ox 95 02/09/25 08:12 O2 Del Method Room Air 02/09/25 08:12 BMI result Body Mass Index 30.4 General: AO X 3, no acute distress Resp: CTA bilateral CVS: S1,S2,RRR GI: +BS, NT, no distention Skin: No rash Neuro: motor grossly intact Psych: appropriate affect DS: Data Data Completed and Pending Labs on day of discharge: Laboratory Results - last 24 hr 02/08/25 02/09/25 02/09/25 22:17 02:03 05:12 WBC 7.2 RBC 5.02 Hgb 16.2 Hct 43.9 MCV 87.5 MCH 32.3 MCHC 36.9 H RDW 12.7 Plt Count 236 MPV 9.9 Immature Gran % (Auto) 2.1 H Neut % (Auto) 72.4 Lymph % (Auto) 17.6 L Rutherford % (Auto) 5.8 Eos % (Auto) 1.7 Baso % (Auto) 0.4 Lymph # (Auto) 1.3 Rutherford # (Auto) 0.4 Eos # (Auto) 0.1 Baso # (Auto) 0.0 Abs Immat Gran (auto) 0.15 H Absolute Neuts (auto) 5.2 Absolute Nucleated RBC 0.000 Nucleated RBC % (auto) 0.0 Sodium 129 L 128 L Potassium 2.6 L* 3.1 L Chloride 90 L 90 L Carbon Dioxide 24 25 Anion Gap 18 16 BUN 6 L 6 L Creatinine 0.85 0.67 Estim Creat Clear Calc 109.9 139.5 Estimated GFR > 60 > 60 Random Glucose 125 H 110 Calcium 9.2 D 8.6 D Magnesium 1.3 L* 1.8 Total Bilirubin 0.8 Direct Bilirubin 0.2 AST 47 H ALT 38 Alkaline Phosphatase 85 Troponin I High Sens < 2.7 D Total Protein 6.9 Albumin 3.9 Urine Opiates Screen Not Detected Ur Buprenorphine Scrn Not Detected Ur Oxycodone Screen Not Detected Urine Methadone Screen Not Detected Urine Fentanyl Screen POSITIVE H Ur Barbiturates Screen Not Detected Ur Phencyclidine Scrn Not Detected Ur Amphetamines Screen Not Detected U Benzodiazepines Scrn POSITIVE H Urine Cocaine Screen Not Detected U Marijuana (THC) Screen POSITIVE H Ethyl Alcohol 152 Discharge Plan Discharge Anticipated Discharge Date/Time: 02/09/25 12:28 Patient Disposition: Home, Self-Care Discharge Diagnosis: Opiod overdose, metabolic encephalopathy, hypokalemia, hyponatremia Referrals: [facility] [Provider Group] - 1 Week (You were sent a prescription for Suboxone to your pharmacy. If you find this medication helps with your symptoms, please call this office to schedule a follow up appt. ) Osmel Mcclure MD [Primary Care Provider] - 1 Week Discharge Medications: New buprenorphine-naloxone [Suboxone] 2-0.5 mg film 1 film sublingual DAILY Qty: 2 0RF lisinopril 10 mg tablet 10 mg PO DAILY Qty: 90 0RF Continued albuterol sulfate [Ventolin HFA] 90 mcg/actuation HFA aerosol inhaler 2 puff PO Q4-6H PRN (Reason: for wheezing) Qty: 18 3RF clonazepam 1 mg Tablet 2 mg PO BEDTIME PRN (Reason: Anxiety) clonazepam 1 mg tablet 1 mg PO DAILY@1200 PRN (Reason: Anxiety) levothyroxine 125 mcg tablet 125 mcg PO DAILY@0600 fluoxetine 40 mg capsule 40 mg PO DAILY allopurinol 300 mg tablet 300 mg PO DAILY Qty: 90 0RF fenofibrate 160 mg tablet 160 mg PO DAILY Qty: 90 7RF fluticasone propionate 50 mcg/actuation spray,suspension 1 spray intranasal DAILY Qty: 9.9 2RF Rx Instructions: administer into each nostril ibuprofen 800 mg tablet 800 mg PO TID PRN (Reason: Pain) Qty: 90 2RF metoprolol tartrate 50 mg tablet 50 mg PO BID Qty: 60 8RF multivitamin Tablet 1 tab PO DAILY Qty: 30 0RF nystatin 100,000 unit/gram cream 3 appl topical QID Qty: 60 3RF omeprazole 20 mg capsule,delayed release(DR/EC) 20 mg PO DAILY Qty: 90 0RF quetiapine 100 mg tablet 100 mg PO BEDTIME Qty: 90 0RF sennosides [senna] 8.6 mg tablet 8.6 mg PO BEDTIME Qty: 90 0RF simvastatin 40 mg tablet 40 mg PO DAILY Qty: 90 0RF thiamine HCl (vitamin B1) 500 mg tablet 500 mg PO DAILY Qty: 30 0RF Spiriva Respimat 2.5 mcg/actuation mist 2 puff inhalation DAILY Qty: 4 7RF trazodone 100 mg tablet 100 mg PO BEDTIME PRN (Reason: sleep) Qty: 30 3RF potassium chloride [Klor-Con M20] 20 mEq tablet,ER particles/crystals 20 meq PO DAILY Qty: 30 3RF loratadine [Claritin] 10 mg tablet 10 mg PO DAILY PRN (Reason: allergy symptoms) Qty: 30 3RF Discontinued chlorthalidone 25 mg tablet 25 mg PO DAILY Qty: 90 7RF Diet: Advance to usual diet Activity on Discharge: As tolerated Stand Alone Forms: Patient Portal Discharge page Print Language: Slovak Care Plan Goals: recovery from overdose Health Concerns: hypokalemia hyponatremia Plan of Treatment: avoid ilicit substance or street drugs stop taking Chlorthalidone for blood pressure as it is causing low potassium and low sodium take Lisinopril for blood pressure [id number] up with your doctor for blood pressure check you will need blood work (basic metabolic panel) in a week Assessment: see above
[2025-02-09 12:38] LABS: Anion Gap 15 (12-20); Blood Urea Nitrogen 6 mg/dL (9-16); Calcium 9.6 mg/dL (8.4-10.2); Carbon Dioxide 32 mmol/L (22-29); Chloride 88 mmol/L (96-108); Creatinine Clr Calc Pharmacy 119.8; Estimated Glomerular Filt Rate > 60; Glucose Random 91 mg/dL (60-115); Potassium 3.2 mmol/L (3.3-5.1); Sodium 132 mmol/L (135-145)
[2025-02-09] MEDS: Naloxone HCl Nasal TAKE HOME 4 MG SPRAY 8 MG NOSTRILALT (13:24)
--- NOTE | 2025-02-09 13:28 | MHC.CM.PN ---
Patient has been medically cleared for dc to home today, self care.
[2025-02-09 14:10] VITALS: BP 144/84; PULSE 88; RESP 19; TEMP 36.6; O2SAT 98
== END 2025-02-09 14:17 | disposition home or self-care (01) | DRG 812 ==
LOC: HO.ED 02-09 04:02 → HO.EDOVER 02-09 05:06
PROVIDERS: Admitting Provider Physician Assistant; Emergency Provider Emergency Medicine; PCP Internal Medicine; Visit Provider Internal Medicine
DX: T40.2X1A Poisoning by other opioids, accidental (unintentional), initial encounter (principal); G92.8 Other toxic encephalopathy; E87.1 Hypo-osmolality and hyponatremia; E87.6 Hypokalemia; E83.42 Hypomagnesemia; F10.129 Alcohol abuse with intoxication, unspecified; N40.0 Benign prostatic hyperplasia without lower urinary tract symptoms; M19.90 Unspecified osteoarthritis, unspecified site; M10.9 Gout, unspecified; E66.811 Obesity, class 1; F11.90 Opioid use, unspecified, uncomplicated; Z68.30 Body mass index [BMI] 30.0-30.9, adult; Z71.3 Dietary counseling and surveillance; T50.2X5A Adverse effect of carbonic-anhydrase inhibitors, benzothiadiazides and other diuretics, initial encounter; Y90.6 Blood alcohol level of 120-199 mg/100 ml; Z79.51 Long term (current) use of inhaled steroids; Z87.891 Personal history of nicotine dependence; Z79.899 Other long term (current) drug therapy
CPT/HCPCS: 36415; 71045; 80048; 80076; 80307; 83735; 84484; 85025; 93005; 99285; J1650; J2405; J3475

== ENCOUNTER → 2025-02-08 21:56 | Outpatient (BNV) | payer OTHER, SELFPAY | PROVIDERS: Emergency Provider Emergency Medicine; PCP Internal Medicine; Visit Provider Student in an Organized Health Care Education/Training Program | DX: T50.901A Poisoning by unspecified drugs, medicaments and biological substances, accidental (unintentional), initial encounter (principal) | CPT/HCPCS: 71045 ==

== ENCOUNTER → 2025-02-08 21:57 | Outpatient (BNV) | payer OTHER, SELFPAY | PROVIDERS: Admitting Provider Physician Assistant; Emergency Provider Emergency Medicine; PCP Internal Medicine; Visit Provider Internal Medicine | DX: I45.9 Conduction disorder, unspecified (principal) | CPT/HCPCS: 93010 ==

== ENCOUNTER → 2025-02-09 05:02 | Outpatient (BNV) | payer OTHER, SELFPAY | PROVIDERS: Admitting Provider Physician Assistant; Emergency Provider Emergency Medicine; PCP Internal Medicine; Visit Provider Nurse Practitioner Psychiatric/Mental Health | DX: F11.90 Opioid use, unspecified, uncomplicated (principal) | CPT/HCPCS: 99499 ==

== ENCOUNTER → 2025-02-09 05:02 | Outpatient (BNV) | payer OTHER, SELFPAY | PROVIDERS: Admitting Provider Physician Assistant; Emergency Provider Emergency Medicine; PCP Internal Medicine; Visit Provider Internal Medicine | DX: T50.901A Poisoning by unspecified drugs, medicaments and biological substances, accidental (unintentional), initial encounter (principal); G92.9 Unspecified toxic encephalopathy; F10.929 Alcohol use, unspecified with intoxication, unspecified; F11.90 Opioid use, unspecified, uncomplicated; F10.90 Alcohol use, unspecified, uncomplicated; E87.6 Hypokalemia; E87.1 Hypo-osmolality and hyponatremia; E83.42 Hypomagnesemia; E66.9 Obesity, unspecified | CPT/HCPCS: 99499 ==

== ENCOUNTER 2025-04-20 15:11 | Outpatient (AMB) | payer OTHER, SELFPAY ==
--- OUTSIDE RECORDS SUMMARY | 2025-04-20 15:15 | XMS_ITS | Clinical Summary ---
Author Organization [facility] Address [address] [address] Care Team Providers Care Traffic Monitor Specialist Name Role Phone Osmel Mcclure MD Primary Care Provider [phone] Social History Tobacco Use Types Packs/Day Years [...] Colorectal Cancer Screening: Sigmoidoscopy 01/12/2021 Influenza Vaccine (#1) 2025 Insurance [facility] [employer]net [facility] [employer] Care Teams Traffic Monitor Specialist Relationship Specialty Start Date End Date Osmel Mcclure MD [address] [place], [place] PCP - General Internal Medicine 02/04/23
--- OUTSIDE RECORDS SUMMARY | 2025-04-20 15:15 | XMS_ITS | Clinical Summary ---
Author Organization [employer] Address [address] [facility] [address] [place] [address] Care Team Providers Care Diesel Maintenance Electrician Name Role Phone Unavailable Primary Care Provider [...] Panel 1972 SDOH Screening 1972 Sigmoidoscopy 1972 Disability Screening 1972 Alcohol/Substance Use Screening 1984 Hepatitis C Screening 01/12/1990 Pneumococcal Vaccine: 50+ Years (1 of 2 - PCV) 01/12/1991 Hepatitis B Vaccines (2 of 3 - 19+ 3-dose series) 12/31/2019 12/03/2019 Zoster Vaccines (1 of 2) 01/12/2022 Tobacco Screening 04/17/2024 04/17/2023 COVID-19 Vaccine (3 - 2023-2 5 season) 2024 02/12/2022, 12/13/2021 Influenza Vaccine (#1) 2025 2, 06/29/2021, 05/05/2015 Dental X-Ray: Full Mouth [...] patient's age to complete this topic Meningococcal B Vaccine Aged Out No l onger eligible based on patient's age to complete [...] Most Recently Relevant to Health Maintenance [facility] ST[facility] AD[facility]
--- OUTSIDE RECORDS SUMMARY | 2025-04-20 15:15 | XMS_ITS | Clinical Summary ---
Author Organization [facility] Address [address] [address] Phone Care Team Providers Care Shingles Roofer Helper Name Role Phone Unknown, Unknown Primary Care Provider Unavai lable Allergies No known active allergies Medications ipratropium-albute rol (DUONEB) 0.5-2.5 mg/3 mL nebulizer solutionIndication s:Moderate persistent asthma with acute exacerbation Take 3 mL by nebulization 4 (four) times a day as needed for wheezing or shortness of breath/dyspnea. 90 mL 1 09/29/19 19 Active predniSONE (DELTASONE) 20 MG tabletIndications: Moderate persistent asthmatic bronchitis with acute exacerbation Take 3 tablets at the same time po daily x 3 days, then 2 tablets at the same time daily x 3 days, then 1 tablet daily x 3 days 18 tablet 09/29/19 19 Active Additional Information Patient not taking.Reported on 11/04/2018 tamsulosin (FLOMAX) 0.4 mg CapIndications:Eze ign prostatic hyperplasia with lower urinary tract symptoms TAKE 1 CAPSULE(0.4 MG) BY MOUTH DAILY 30 capsule 6 10/09/19 19 Active WAL-ITIN D 12 HOUR 5-120 mg [id number]:Ch ronic allergic rhinitis due to animal hair and dander TAKE 1 TABLET BY MOUTH EVERY 12 HOURS 60 tablet 10/09/19 19 Active PROAIR HFA 90 mcg/actuation inhaler INHALE 2 PUFFS BY MOUTH EVERY 4 HOURS NEEDED 8.5 g 11/07/19 19 Active clonazePAM (KLONOPIN) 1 MG tablet TAKE 1 TABLET BY MOUTH THREE TIMES DAILY NEEDED FOR ANXIETY 84 tablet 03/22/20 19 Active levothyroxine (SYNTHROID, LEVOTHROID) 175 MCG tabletIndications: Acquired hypothyroidism TAKE 1 TABLET(175 MCG) BY MOUTH EVERY MORNING 30 tablet 04/09/20 19 Active allopurinol (ZYLOPRIM) 300 MG tabletIndications: Gout, unspecified cause, unspecified chronicity, unspecified site TAKE 1 TABLET(300 MG) BY MOUTH DAILY 30 tablet 5 06/28/20 19 Active SENNA 8.6 mg tabletIndications: Constipation TAKE 1 TABLET BY MOUTH TWICE DAILY NEEDED FOR CONSTIPATION 60 tablet 1 09/27/19 20 Active chlorthalidone (HYGROTON) 25 MG tabletIndications: Essential hypertension TAKE 1 TABLET(25 MG) BY MOUTH EVERY MORNING 30 tablet 5 12/29/19 20 Active FLUoxetine (PROZAC) 40 MG capsuleIndications :Depression with anxiety TAKE 1 CAPSULE(40 MG) BY MOUTH EVERY MORNING 30 capsule 5 12/29/19 20 Active fenofibrate (LOFIBRA) 160 MG tabletIndications: Hypercholesterolem ia TAKE 1 TABLET BY MOUTH EVERY DAY WITH A MEAL 30 tablet 5 12/30/19 20 Active QUEtiapine (SEROQUEL) 100 MG tabletIndications: Depression with anxiety TAKE 1/2 TO 1 TABLET BY MOUTH BY MOUTH EVERY NIGHT 30 tablet 6 01/19/20 20 Active metoprolol tartrate (LOPRESSOR) 50 MG tabletIndications: Essential hypertension TAKE 1 TABLET BY MOUTH TWICE DAILY 60 tablet 06/19/20 20 Active atorvastatin (LIPITOR) 40 MG tabletIndications: Hypercholesterolem ia TAKE 1 TABLET BY MOUTH DAILY 30 tablet 09/06/20 20 Active buPROPion (WELLBUTRIN SR) 150 MG SR 12 hr tabletIndications: Depression with anxiety TAKE 1 TABLET BY MOUTH TWICE DAILY 60 tablet 6 09/06/20 20 Active famotidine (PEPCID) 20 MG tabletIndications: GERD without esophagitis TAKE 1 TABLET BY MOUTH TWICE DAILY 60 tablet 09/06/20 20 Active ibuprofen (ADVIL,MOTRIN) 800 MG tabletIndications: Primary osteoarthritis involving multiple joints TAKE 1 TABLET EVERY 8 HOURS NEEDED FOR PAIN 90 tablet 4 10/01/19 22 Active Active Problems Problem Noted Date Diagnosed Date Acquired hypothyroidism 03/12/2018 Allergic rhinitis 03/12/2018 Benign prostatic hyperplasia with lower urinary tract symptoms 03/12/2018 Borderline diabetes 03/12/2018 Chronic low back pain 03/12/2018 Depression with anxiety 03/12/2018 Erectile dysfunction 03/12/2018 Essential hypertension 03/12/2018 GERD without esophagitis 03/12/2018 Gout 03/12/2018 Hypercholesterolemia 03/12/2018 Insomnia 03/12/2018 Mild intermittent asthma without complication Obesity 03/12/2018 Primary osteoarthritis involving multiple joints 03/12/2018 Social History Tobacco Use Types Packs/Day Years Used Date Smoking Tobacco: Never Assessed Education Answer Date Recorded Are you interested in more education? Not on latrice e 01/03/2023 Are you concerned about learning? Not on file 01/03/2023 No 01/03/2023 No 01/03/2023 Digital Access Answer Date Recorded No 02/03/2023 No 02/03/2023 Reliable internet access at home? Not on file 02/03/2023 Device with a working camera? Not on file Sex and Gender Information Value Date Recorded Sex Assigned at Not on file Legal Sex Male 9:33 PM EDT Gender Identity Not on file Sexual Orientation Not on file Last Filed Vital Signs Vital Sign Reading Time Taken Comments Blood Pressure 134/92 11/04/2018 1:47 PM EST Pulse 81 11/04/2018 1:47 PM EST Temperature - - Respiratory Rate - - Oxygen Saturation 97% 11/04/2018 1:47 PM EST Inhaled Oxygen Concentration - - Weight 103.7 kg (228 lb 9.6 oz) 11/04/2018 1:47 PM EST Height 172.7 cm (5' 8 ) 11/04/2018 1:47 PM EST Body Mass Index 34.76 11/04/2018 1:47 PM EST Plan of Treatment Health Maintenance Due Date Last Done Comments BLOOD PRESSURE 1972 DEPRESSION SCREENING 1984 SMOKING Hx and SMOKELESS TOBACCO SCREENING 01/12/1985 HEPATITIS C SCREENING 01/12/1990 HIV ONE-TIME SCREENING (18-6 5 YEARS) 01/12/1990 PNEUMOCOCCAL VACCINES (50+ years) (1 of 2 - PCV) 01/12/1991 COLOGUARD 01/12/2017 COLONOSCOPY 01/12/2017 COLORECTAL CANCER SCREENING 01/12/2017 FIT TEST 01/12/2017 FOBT 01/12/2017 SIGMOIDOSCOPY 01/12/2017 VIRTUAL COLONOSCOPY 01/12/2017 CREATININE LEVEL 03/12/2019 03/12/2018 POTASSIUM LEVEL 03/12/2019 03/12/2018 TSH LEVEL 03/12/2019 03/12/2018 ZOSTER VACCINES (1 of 2) 01/12/2022 LIPID PANEL 03/12/2023 03/12/2018, 03/12/2018 COVID-19 VACCINE (2 - 2023-2 5 season) 2024 12/13/2021 Adult Td,Tdap Booster 12/14/2028 12/14/2018 , 03/05/2017 HEPATITIS A VACCINES Aged Out 12/03/2019 No long er eligible based on patient's age to complete this topic HIB VACCINES Aged Out No longer eligi ble based on patient's age to complete this topic MENINGOCOCCAL VACCINES (ACWY) Aged Out No longer eligible based on patient's age to complete this topic MENINGOCOCCAL VACCINES (B) Aged Out N o longer eligible based on patient's age to complete this topic Medical Devices Not on file Procedures Procedure Name Priority Date/Time Associated Diagnosis Comments LIPID PANEL Routine 03/12/2018 3:36 PM EDT Mixed hyperlipidemia TSH Routine 03/12/2018 3:36 PM EDT Acquired hypothyroidism COMPREHENSIVE METABOLIC PANEL Routine 03/12/2018 3:36 PM EDT Mixed hyperlipidemia from Last 3 Months or Most Recently Relevant to Health Maintenance Results * (ABNORMAL) Comprehensive metabolic panel (03/12/2018 3:36 PM EDT) SODIUM 134 133 - 146 mmol/L [facility] POTASSIUM 3.8 3.3 - 5.1 mmol/L [facility] CHLORIDE 91(L) 96 - 108 mmol/L [facility] CO2 31 21 - 35 mmol/L [facility] BUN 16 6 - 19 mg/dL [facility] CREATININE 0.80 0.5 - 1.5 mg/dL [facility] GLUCOSE 116(H) 70 - 99 mg/dL [facility] ALBUMIN 3.9 3.9 - 4.8 g/dL [facility] TOTAL PROTEIN 6.7 6.5 - 8.0 g/dL [facility] CALCIUM 9.2 8.4 - 10.3 mg/dL [facility] ALKALINE PHOSPHATASE 89 39 - 117 U/L [facility] TOTAL BILIRUBIN 0.4 0.0 - 1.2 mg/dL [facility] AST 38(H) 0 - 37 U/L [facility] ALT 29 0 - 40 U/L [facility] GLOBULIN 2.8 1 - 4.8 g/dL [facility] EGFR 107 >59 mL/min/1.7 3m2 [facility] Comment:If patient is black, multiply result by 1.159. Estimated glomerular filtration rate calculated using the CKD-EPI equation. ANION GAP 16 10 - 20 mmol/L [facility] Blood 03/12/2018 3:36 PM EDT 03/12/2018 6:46 PM EDT Estefany Restrepo NP LAB BLOOD ORDERABLES Final Result Performing Organization Address City/[facility]/ZIP Co de Phone Number [address] [address] * (ABNORMAL) TSH (03/12/2018 3:36 PM EDT) TSH 36.96(H) 0.27 - 4.20 uIU/mL [facility] Blood 03/12/2018 3:36 PM EDT 03/12/2018 6:46 PM EDT Estefany Restrepo NP LAB BLOOD ORDERABLES Final Result Performing Organization Address [facility] Co de Phone Number [address] [address] * (ABNORMAL) Lipid panel (03/12/2018 3:36 PM EDT) HDL 47 mg/dL [facility] Comment: Interpretation: Risk Level Males Decreased >45 mg/dL Average 40-45 mg/dL Increased <40 mg/dL CHOLESTEROL 303(H) 0 - 240 mg/dL [facility] TRIGLYCERIDES 1,283(H) 30 - 160 mg/dL [facility] LDL NOT CALCULATED 50 - 129 mg/dL [facility] Comment: Unable to calculate due to elevated TRIG of greater than 400. A measured LDL will be performed. CARDIAC RISK RATIO 6.4(H) 3.4 - 5.0 [facility] Blood 03/12/2018 3:36 PM EDT 03/12/2018 6:46 PM EDT Estefany Restrepo JTAC LAB BLOOD ORDERABLES Final Result [facility] [address] [place] [address] from Last 3 Months or Most Recently Relevant to Health Maintenance Insurance [employer] NON NSPG PCP [employer] NON NSPG PCP [employer] NON NSPG PCP S[employer]ARE WELL[employer] NON NSPG PCP SILVER [employer] CONNECTORCARE WELLSENSE NON NSPG PCP SILVER [employer]ARITY CONNECTORCARE WELLSENSE NON NSPG PCP SILVER [employer]ARITY CONNECTORCARE WELLSENSE NON NSPG PCP SILVER [employer]ARITY CONNECTORCARE WELLSENSE NON NSPG PCP [employer] WE[employer] NON NSPG PCP [employer] Care Teams Shingles Roofer Helper Relationship Specialty Start Date End Date Unknown, Unknown, PCP - General 12/10/21 Additional Source Comments The information contained in this document represents components of the legal health record. It is not the complete legal health record.[facility]
--- NOTE | 2025-04-20 15:46 | MHC.PC.OV ---
Vital Signs 04/20/25 15:47 04/20/25 16:45 Height 5 ft 8 in Weight 189 lb 6 oz BMI 28.8 BP 150/80 H 126/88 Blood Pressure Location Lt brachial Lt brachial Position Sitting Sitting Pulse 87 Pulse Source Pulse Oximeter Temp 97.3 F Temp Source Temporal Artery Scan Pulse Oximetry (%) 97 Oxygen Delivery Method Room Air Intake Visit Reasons: hypothyroidism/hld/htn/hypokalemia Intake Note: Patient is here to follow up on HTN, HLD, Hypothyroidism, hypokalemia. Cellophane Wrapping Examiner Required: No Space Systems Operations Manager: Not Required per policy Accompanied by: Self / Same As Patient Allergies No Known Drug Allergies Allergy (Unknown, Verified 04/20/25 15:47) none Fruit skins Allergy (Unknown, Uncoded 04/20/25 15:47) Unknown Medication List - Last Reconciled 04/20/25 by BRIAN Bailey albuterol sulfate 90 mcg/actuation (Ventolin HFA) 2 puffs PO Q4-6H PRN allopurinol 300 mg PO DAILY clonazepam 1 mg PO BID-TID 10 days fenofibrate 160 mg PO DAILY fluoxetine 40 mg PO DAILY fluticasone propionate 50 mcg/actuation 1 spray intranasal DAILY ibuprofen 800 mg PO TID PRN levothyroxine 125 mcg PO DAILY@0600 lisinopril 10 mg PO DAILY loratadine (Claritin) 10 mg PO DAILY PRN multivitamin 1 tab PO DAILY nystatin 3 appl topical QID omeprazole 20 mg PO DAILY potassium chloride ER (Klor-Con M) 20 mEq PO DAILY quetiapine 100 mg PO BEDTIME sennosides (senna) 8.6 mg PO BEDTIME simvastatin 40 mg PO DAILY thiamine HCl (vitamin B1) 500 mg PO DAILY tiotropium bromide 2.5 mcg/actuation (Spiriva Respimat) 2 puffs inhalation DAILY trazodone 100 mg PO BEDTIME PRN Tobacco use date assessed: 04/20/25 Dental Screening Dental Screen Date: 01/13/25 HPI hypothyroidism/hld/htn/hypokalemia HPI Details The patient is a 54-year-old male with significant past medical history of BPH, oa, gout, HTN, hypothyroid, chronic low back pain, class 1 obesity, alcohol abuse Patient is presenting for follow up appointment for chronic conditions. He reports incident of accidental overdose that landed him in the ED. The patient explained that he purchased what he thought was percocet on the street for his stomach pain after consuming many alcoholic beverages. Subsequently, arrested and was resuscitated by a bystander and given multiple doses of Narcans. Chart review: Shows that the patient toxicology screen was positive for alcohol, fentanyl, benzo and cannabis. He was also found to be hypokalemic and hyponatremic possibly due to chlorthalidone along with alcohol consumption. The patient was seen by addiction Medicine in the hospital and he was started on Suboxone with plans for outpatient follow up. Patient reports that he has not been taking the Suboxone because he is not addicted. Patient labs that was completed in the hospital was reviewed with him. He has not completed preordered labs for this follow up appointment. Patient reports that he was able to connect with his referred psychiatrist and they had taken over his clonazepam ordering. He has complaints of chest soreness from receiving CPR. Reports ongoing allergies causing his nose to be constantly running, questioning seeing an marine service operator vs a quality control coordinator. He is also concern about his heart and would like this evaluated. . [facility] Medical History Physical exam Alcohol use disorder Mood disorder Substance use disorder Hypothyroidism Hypertension Obesity Surgical History No pertinent past surgical history Family History Father No problems noted. Mother No problems noted. Social History Household Members: None Housing: Apartment Do you presently have visiting nurse or other home services: No Alcohol intake: current Alcohol intake frequency: a few times a week Patient Tobacco Use Status: Former Tobacco user Years Smoked: 8 years e-Cigarette/Vaping Use: Never Used Second Hand Smoke Exposure: Yes service: No Current occupational status: employed Current occupational exposures/hazards: No Cognitive needs: No Hearing needs: No Vision needs: No Questionnaire Thrive Questionnaire Date Thrive assessed: 09/09/24 I am a: Patient What is your living situation today?: I have a steady place to live Within the past 12 months, did the food you bought not last and you didn't have the money to get more?: Never true Within the past 12 months, did you worry whether your food would run out before you got money to buy more?: Never true Do you have trouble paying for medicines?: No Do you have trouble getting transportation to medical appointments?: Yes Do you have trouble paying your heating and electricity bill?: No Do you have trouble taking care of your child, family member or friend?: No Do you have trouble with day-to-day activities such as bathing, preparing meals, shopping, managing finances, etc.?: Yes Are you currently unemployed and looking for a job?: Yes Are you interested in more education?: No Please select the resources that you would like help with: None Currently or been in a relationship where the following occur: I choose not to answer THRIVE Score: 1 JAMISON-7 AMB Questionnaire JAMISON-7 Date JAMISON - 7 assessed: 09/15/24 Source: Developed by Drs. Hema Crouch, Lou Monreal, Elmer Darnell and colleagues, with an educational tobias from [employer]. Review of Systems Const Denies headache(s) Eyes Denies loss of vision ENT Denies vertigo, Denies dizziness, Denies headache(s) and Denies sore throat Card Reports chest pain (post cpr-describes as muscle cramping), Denies leg edema, Denies lightheadedness and Reports dyspnea on exertion Resp Denies cough, Denies hemoptysis, Reports dyspnea on exertion and Denies wheezing GI Reports abdominal pain (on and off), Denies melena, Denies constipation, Denies diarrhea and Denies vomiting Denies dysuria, Denies urinary frequency and Denies urinary urgency Musc Denies arthralgias, Denies joint swelling, Reports muscle weakness (reports generalized), Denies numbness and Denies tingling Neuro Denies Abnormal speech present, Denies behavioral changes, Denies vertigo, Denies dizziness, Denies headache(s), Denies loss of vision, Reports memory loss (feels like his memory has been fading), Denies numbness and Denies tingling Psych Reports anxiety, Denies behavioral changes, Denies depression, Reports memory loss (feels like his memory has been fading) and Denies panic attacks Sim/Lymph Denies easy bleeding and Denies easy bruising Aller/Immun Denies wheezing Physical exam (Primary Care) Vital Signs: Last Vital Signs Temp 97.3 F 04/20/25 15:47 Pulse 87 04/20/25 15:47 BP 126/88 04/20/25 16:45 Pulse Ox 97 04/20/25 15:47 Oxygen Delivery Method Room Air 04/20/25 15:47 BMI result Body Mass Index 28.8 Tobacco/Smoking Status: Tobacco use Status Tobacco use date assessed 04/20/25 04/20/25 15:55 Patient Tobacco Use Status Former Tobacco user 04/20/25 15:55 e-Cigarette/Vaping Use Never Used 04/20/25 15:55 Thrive Assessment: Date of Thrive Assessment Date Thrive assessed 09/09/24 04/20/25 15:55 Currently or been in a relationship where the following occur: I choose not to answer Const General: healthy appearing, no acute distress, alert and awake Nutritional Appearance: well nourished Orientation/consciousness: oriented to person, oriented to place and oriented to time HENMT Ears: TM's normal bilaterally General nose exam: Abnormal mucous membranes and turbinates present erythematous Eyes Conjunctivae: conjunctivae normal Sclerae: sclerae normal Pupils: Equal, round and reactive pupils present Neck Neck: Yes no lymphadenopathy and Yes no JVD Thyroid: Thyroid normal Carotids: no bruits Resp Effort & Inspection: normal respiratory effort and not tachypneic Auscultation: no crackles, no rales, no rhonchi and no wheezes Cardio Rate: regular rate Rhythm: regular rhythm Heart sounds: S2 normal heart sound present, no murmurs and normal S1 and S2 GI Inspection: Yes obesity Palpation (GI): Soft to palpation, nontender, no hepatomegaly and no splenomegaly Auscultation: normal bowel sounds Skin General skin exam: no rashes or lesions noted and dry skin Neuro General: oriented to person, oriented to place and oriented to time Cranial nerves: Yes Equal, round and reactive pupils present Speech: No Abnormal speech present Gait exam (Neuro): Normal gait present Motor exam (neuro): no tremor noted Extrem Right upper extremity: full ROM Left upper extremity: full ROM Right lower extremity: full ROM; no edema Left lower extremity: full ROM; no edema Psych Mental Status: mental status grossly normal Speech and movement: Normal speech and movement present Affect: normal affect Attitude: cooperative Thought process: Normal thought process present Coding Level of Care Code Est Pt Level 4 (15152) Diagnoses Mood disorder F39 Anxiety F41.9 Major depressive disorder, remission status unspecified, unspecified whether recurrent F32.9 Major depression recurrence: unspecified whether recurrent Active/Remission status: remission status unspecified Alcoholism F10.20 Substance use disorder F19.90 Alcohol use disorder F10.90 Hypertension, unspecified type I10 Hypertension type: unspecified High cholesterol E78.00 History of supraventricular tachycardia Z86.79 Hypothyroidism, unspecified type E03.9 Hypothyroidism type: unspecified Chronic gout without tophus, unspecified cause, unspecified site [id number] Gout site: unspecified site Gout etiology: unspecified cause Chronicity: chronic Presence of tophus: without tophus Asthma-COPD overlap syndrome J44.9 Time Spent (min) 41 Assessment & Plan Assessment & Plan (1) Mood disorder: Code(s): F39 - Unspecified mood [affective] disorder Category: Medical (2) Anxiety: Code(s): F41.9 - Anxiety disorder, unspecified Category: Medical (3) Major depression: Code(s): F32.9 - Major depressive disorder, single episode, unspecified Category: Medical Qualifiers: Major depression recurrence: unspecified whether recurrent Active/Remission status: remission status unspecified Qualified Code(s): F32.9 - Major depressive disorder, single episode, unspecified (4) Alcoholism: Code(s): F10.20 - Alcohol dependence, uncomplicated Category: Medical (5) Substance use disorder: Code(s): F19.90 - Other psychoactive substance use, unspecified, uncomplicated Category: Medical (6) Alcohol use disorder: Code(s): F10.90 - Alcohol use, unspecified, uncomplicated Category: Medical (7) Hypertension: Code(s): I10 - Essential (primary) hypertension Category: Medical Qualifiers: Hypertension type: unspecified Qualified Code(s): I10 - Essential (primary) hypertension (8) High cholesterol: Code(s): E78.00 - Pure hypercholesterolemia, unspecified Category: Medical (9) History of supraventricular tachycardia: Code(s): Z86.79 - Personal history of other diseases of the circulatory system Category: Medical (10) Hypothyroidism: Code(s): E03.9 - Hypothyroidism, unspecified Category: Medical Qualifiers: Hypothyroidism type: unspecified Qualified Code(s): E03.9 - Hypothyroidism, unspecified (11) Gout: Code(s): M10.9 - Gout, unspecified Category: Medical Qualifiers: Gout site: unspecified site Gout etiology: unspecified cause Chronicity: chronic Presence of tophus: without tophus Qualified Code(s): [id number].[id number] - Chronic gout, unspecified, without tophus (tophi) (12) Asthma-COPD overlap syndrome: Code(s): J44.9 - Chronic obstructive pulmonary disease, unspecified Category: Medical Plan The patient will undergo blood work to assess current potassium and sodium levels, given the history of hypokalemia and hyponatremia. An echocardiogram is planned to evaluate cardiac function, particularly in light of the patient's history of ventricular tachycardia and reported heart cramping after receiving CPR. The patient is advised to avoid alcohol and benzodiazepine use concurrently due to the risk of respiratory depression. Referral to a elevators inspector and quality control coordinator is recommended for further management of cardiac and respiratory conditions. The patient is encouraged to continue using Claritin and Flonase for allergic rhinitis and to consider seeing an marine service operator for further evaluation. Patient to continue allopurinol 300 mg daily. We will re-evaluate uric acid on follow up blood work. The patient she will continue his Seroquel 100 mg at bedtime, fluoxetine 40 mg daily, and clonazepam 1 mg TID, and should follow up with Psychiatry as scheduled. The patient should continue lisinopril 10 mg daily, simvastatin 40 mg daily, levothyroxine 125 mg daily, etc,. He should continue with all schedule medication until he repeats his labs to further evaluated. Encouraged to get this done as soon as possible. Patient was informed and verbally consented to the use of an ambient scribe for clinic note documentation during this visit. Orders: Orders B Type Natriuretic Peptide 04/20/25 F10.20 - Alcohol dependence, uncomplicated, R06.02 - Shortness of breath CA echo transthoracic complete Today I10 - Essential (primary) hypertension, R07.89 - Other chest pain, Z86.79 - Personal history of other diseases of the circulatory system Referrals Pulmonology Referral J44.9 - Chronic obstructive pulmonary disease, unspecified Cardiology Referral I10 - Essential (primary) hypertension, R07.89 - Other chest pain, Z86.79 - Personal history of other diseases of the circulatory system
[2025-04-20 15:47] VITALS: BP 150/80; PULSE 87; TEMP 36.3; O2SAT 97; BMI 28.8
[2025-04-20 16:45] VITALS: BP 126/88
== END 2025-04-20 16:58 | disposition home or self-care (01) ==
LOC: HO.HMCH 15:12
DX: J44.9 Chronic obstructive pulmonary disease, unspecified (principal); F39 Unspecified mood [affective] disorder; F10.20 Alcohol dependence, uncomplicated; F41.9 Anxiety disorder, unspecified; F32.9 Major depressive disorder, single episode, unspecified; F19.90 Other psychoactive substance use, unspecified, uncomplicated; F10.90 Alcohol use, unspecified, uncomplicated; I10 Essential (primary) hypertension; E78.00 Pure hypercholesterolemia, unspecified; Z86.79 Personal history of other diseases of the circulatory system; E03.9 Hypothyroidism, unspecified; M1A.9XX0 Chronic gout, unspecified, without tophus (tophi)

== ENCOUNTER → 2025-04-20 15:11 | Outpatient (BNVA) | payer OTHER, SELFPAY | DX: I10 Essential (primary) hypertension (principal); E03.9 Hypothyroidism, unspecified; E78.5 Hyperlipidemia, unspecified; E87.6 Hypokalemia; M54.50 Low back pain, unspecified; G89.29 Other chronic pain; E66.811 Obesity, class 1; F39 Unspecified mood [affective] disorder; F41.9 Anxiety disorder, unspecified; F32.9 Major depressive disorder, single episode, unspecified; F10.20 Alcohol dependence, uncomplicated; F19.90 Other psychoactive substance use, unspecified, uncomplicated; E78.00 Pure hypercholesterolemia, unspecified; M1A.9XX0 Chronic gout, unspecified, without tophus (tophi); J44.9 Chronic obstructive pulmonary disease, unspecified; Z86.79 Personal history of other diseases of the circulatory system | CPT/HCPCS: 99212 ==

== ENCOUNTER 2025-07-14 14:41 | Outpatient (REF) | payer OTHER, SELFPAY ==
[2025-07-14 15:06] LABS: MANUAL DIFF FLAG NO
[2025-07-14 15:24] LABS: Appearance Urine Cloudy; Glucose Urine UA Negative (Negative); PH 6.5 (5.0-9.0); Specific Gravity - Urine 1.020 (1.005-1.025); UMIC TRIGGER UACC YES
[2025-07-14 15:24] LABS: Hematocrit 38.8 % (42.0-52.0); Hemoglobin 13.6 g/dl (14.0-18.0); Imm Gran Abs Auto 0.02 X10*3/uL (0.00-0.03); Imm Gran Pct Auto 0.3 % (0.0-0.4); Lymphocytes Absolute Auto 1.0 X10*3/uL (1.2-4.9); Mean Corpuscular HGB Conc 35.1 g/dl (31.0-36.0); Mean Corpuscular Hemoglobin 31.9 pg (27.0-33.0); Mean Corpuscular Volume 91.1 fL (80.0-98.0); NRBC Abs Auto 0.000 X10*3/uL (0.0-0.012); NRBC Pct Auto 0.0 /100WBC (0.0-0.2); Platelet Count 270 X10*3/uL (160-400); Red Blood Count 4.26 X10*6/uL (4.60-5.80); White Blood Count 5.8 X10*3/uL (4.8-10.8)
[2025-07-14 15:32] LABS: Other Crystals Urine Present
[2025-07-14 16:22] LABS: Alanine Aminotransferase 20 U/L (0-40); Albumin Level 4.6 g/dL (3.5-5.0); Alkaline Phosphatase 34 U/L (39-117); Anion Gap 14 (12-20); Aspartate Amino Transferase 34 U/L (5-37); Blood Urea Nitrogen 18 mg/dL (9-16); Calcium 9.4 mg/dL (8.4-10.2); Carbon Dioxide 29 mmol/L (22-29); Chloride 92 mmol/L (96-108); Cholesterol 164 mg/dL (<200); Estimated Glomerular Filt Rate 57; HDL Cholesterol 66 mg/dL (>40); Magnesium 1.5 mg/dL (1.6-2.6); Potassium 4.5 mmol/L (3.3-5.1); Sodium 130 mmol/L (135-145); Total Protein 7.4 g/dL (6.5-8.0); Triglycerides 83 mg/dL (<150); Uric Acid 3.7 mg/dL (3.4-7.0)
[2025-07-14 16:45] LABS: Folate 11.7 ng/mL (> or = 4.0); Vitamin B12 365 pg/mL (200-900)
--- OUTSIDE RECORDS SUMMARY | 2025-07-14 17:54 | XMS_ITS | Clinical Summary ---
Author Organization [employer] Address [address] [facility] [address] [place] [address] Care Team Providers Care Linderman Machine Operator Name Role Phone Unavailable Primary Care Provider [...] Screening 04/17/2024 04/17/2023 COVID-19 Vaccine (3 - 2024-2 6 season) 2025 02/12/2022, 12/13/2021 Influenza Vaccine (#1) 2025 2, [...] Most Recently Relevant to Health Maintenance [facility]
--- OUTSIDE RECORDS SUMMARY | 2025-07-14 17:54 | XMS_ITS | Clinical Summary ---
Author Organization [facility] Facility Address [address] [address] Care Team Providers Care Outside Parts Sales Name Role Phone Osmel Mcclure MD Primary Care Provider Social History Tobacco Use Types Packs/Day Years [...] Sigmoidoscopy 01/12/2021 Influenza Vaccine (#1) 2025 Insurance [facility] [employer] [facility] [employer] Care Teams Outside Parts Sales Relationship Specialty Start Date End Date Osmel Mcclure MD [address] [place], [place] PCP - General Internal Medicine 02/04/23
--- OUTSIDE RECORDS SUMMARY | 2025-07-14 17:54 | XMS_ITS | Clinical Summary ---
Author Organization [facility] Address [address] [address] Phone Care Team Providers Care Straw Baler Name Role Phone Unknown, Unknown Primary Care [...] Active WAL-ITIN D 12 HOUR 5-120 mg [id number]:Ch ronic allergic rhinitis due to animal hair [...] LEVEL 03/12/2019 03/12/2018 TSH LEVEL 03/12/2019 03/12/2018 RSV VACCINE (1 - Risk 50-74 years 1-dose series) 01/12/2022 ZOSTER VACCINES (1 of 2) 01/12/2022 LIPID PANEL 03/12/2023 03/12/2018, 03/12/2018 INFLUENZA VACCINE (#1) 2025 1, 05/05/2015 COVID-19 VACCINE (2 - 2024-2 6 season) 2025 12/13/2021 Adult Td,Tdap Booster 12/14/2028 12/14/2018 , [...] Routine 03/12/2018 3:36 PM EDT Mixed hyperlipidemia THYROID STIMULATING HORMONE (TSH) Routine 03/12/2018 3:36 PM EDT Acquired hypothyroidism COMPREHENSIVE METABOLIC PANEL (CMP) Routine 03/12/2018 3:36 PM EDT Mixed hyperlipidemia from Last 3 Months or Most Recently Relevant to Health Maintenance Results * (ABNORMAL) Comprehensive metabolic panel (03/12/2018 3:36 PM EDT) SODIUM 134 133 - 146 mmol/L [facility] POTASSIUM 3.8 3.3 - 5.1 mmol/L [facility] CHLORIDE 91(L) 96 - 108 mmol/L [facility] CO2 31 21 - 35 mmol/L [facility] BUN 16 6 - 19 mg/dL [facility] CREATININE 0.80 0.5 - 1.5 mg/dL [facility] GLUCOSE 116(H) 70 - 99 mg/dL [facility] ALBUMIN 3.9 3.9 - 4.8 g/dL [facility] TOTAL PROTEIN 6.7 6.5 - 8.0 g/dL [facility] CALCIUM 9.2 8.4 - 10.3 mg/dL [facility] ALKALINE PHOSPHATASE 89 39 - 117 U/L [facility] TOTAL BILIRUBIN 0.4 0.0 - 1.2 mg/dL [facility] AST 38(H) 0 - 37 U/L [facility] ALT 29 0 - 40 U/L [facility] GLOBULIN 2.8 1 - 4.8 g/dL [facility] EGFR 107 >59 mL/min/1.7 3m2 [facility] Comment:If patient is black, multiply result by 1.159. Estimated glomerular filtration rate calculated using the CKD-EPI equation. ANION GAP 16 10 - 20 mmol/L [facility] Blood 03/12/2018 3:36 PM EDT 03/12/2018 6:46 PM EDT Estefany Restrepo HATCH TENDER LAB BLOOD BKR ORDERABLES F inal Result Performing Organization Address City/[facility]/ZIP Co de Phone Number [address] [address] * (ABNORMAL) TSH (03/12/2018 3:36 PM EDT) TSH 36.96(H) 0.27 - 4.20 uIU/mL [facility] Blood 03/12/2018 3:36 PM EDT 03/12/2018 6:46 PM EDT Estefany Retsrepo HATCH TENDER LAB BLOOD BKR ORDERABLES F inal Result [address] [address] * (ABNORMAL) Lipid panel (03/12/2018 3:36 PM EDT) HDL 47 mg/dL [facility] Comment: Interpretation: Risk Level Males Decreased >45 mg/dL Average 40-45 mg/dL Increased <40 mg/dL CHOLESTEROL 303(H) 0 - 240 mg/dL [facility] TRIGLYCERIDES 1,283(H) 30 - 160 mg/dL [facility] LDL NOT CALCULATED 50 - 129 mg/dL [facility] Comment: Unable to calculate due to elevated TRIG of greater than 400. A measured LDL will be performed. CARDIAC RISK RATIO 6.4(H) 3.4 - 5.0 [facility] Blood 03/12/2018 3:36 PM EDT 03/12/2018 6:46 PM EDT us Estefany Restrepo HATCH TENDER LAB BLOOD BKR ORDERABLES F inal Result [facility] [address] [place] [address] from Last 3 Months or Most Recently Relevant to Health Maintenance [place] [address] [place] [address] NON NSPG PCP [facility] [employer] [facility] NON NSPG PCP [employer] NON NSPG PCP S[employer] NON NSPG PCP S[employer] NON NSPG PCP [employer] NON NSPG PCP [employer] NON NSPG PCP [employer] NON NSPG PCP [employer] NON NSPG PCP [employer] Care Teams Straw Baler Relationship Specialty Start Date End Date Unknown, Unknown, PCP - General 12/10/21 Additional Source Comments The information contained in this document represents components of the legal health record. It is not the complete legal health record.[facility]
== END 2025-07-14 14:42 | disposition home or self-care (01) ==
LOC: HO.LAB 14:41
PROVIDERS: Absent Provider Internal Medicine
DX: S40.019A Contusion of unspecified shoulder, initial encounter (principal); S06.0XAA Concussion with loss of consciousness status unknown, initial encounter; I10 Essential (primary) hypertension; J44.9 Chronic obstructive pulmonary disease, unspecified; K40.20 Bilateral inguinal hernia, without obstruction or gangrene, not specified as recurrent; R13.12 Dysphagia, oropharyngeal phase; Z86.79 Personal history of other diseases of the circulatory system; Z80.0 Family history of malignant neoplasm of digestive organs; E78.00 Pure hypercholesterolemia, unspecified; R55 Syncope and collapse; M62.82 Rhabdomyolysis; F11.90 Opioid use, unspecified, uncomplicated; E03.9 Hypothyroidism, unspecified; F19.90 Other psychoactive substance use, unspecified, uncomplicated; F39 Unspecified mood [affective] disorder; F10.90 Alcohol use, unspecified, uncomplicated; N17.9 Acute kidney failure, unspecified; M10.9 Gout, unspecified
CPT/HCPCS: 36415; 80053; 80061; 81001; 82306; 82607; 82746; 82947; 83735; 84443; 84550; 85025

== ENCOUNTER → 2025-07-19 14:53 | Outpatient (REF) | payer OTHER, SELFPAY ==
--- NOTE | 2025-07-19 14:56 | CA_ITS ---
Transthoracic Echocardiogram Patient (Last, First, Middle): Ken Wayne K Gender: M Date of : 1970 Age: 55 Procedure Date: 07/19/2025 Procedure Type: Transthoracic Echocardiogram Location: OP Height: 172.72 cm Weight: 85.73 kg BSA: 2.00 m2 Heart Rate: bpm BP: 126 / 88 mmHg Map Plotter: CICI Referring MD: Geronimo EDGARP-C Medical Screener: Keagan Negro MD Symptoms: Z86.79 - Personal history of other diseases of the circulatory system Study Quality: Technically Difficult ECG Rhythm: Sinus Conclusions: - 1. Technically limited study despite use of contrast stages 2. Normal LV ejection fraction of 60 65% with grade 1 diastolic dysfunction 3. Cardiac valvular Dopplers within normal limits Findings Procedure Information Contrast agent, definity, is being given per protocol without apparent complications. Left Ventricle Normal left ventricular size, thickness, and systolic function. The visually estimated ejection fraction is between 60-65%. Spectral Doppler is indicative of an impaired relaxation filling pattern. E/E prime ratio is <8, consistent with normal filling pressures. Evidence suggests grade I (mild) diastolic dysfunction. Right Ventricle The right ventricle was not well visualized. Normal right ventricular cavity size. Atria The left atrium was not well visualized. Interatrial shunt cannot be excluded. The right atrium was not well visualized. Aortic Valve The aortic valve was not well visualized. There is no aortic valve stenosis. There is no aortic valve regurgitation. Mitral Valve The mitral valve was not well visualized. There is trace mitral valve regurgitation. There is no mitral valve stenosis. Pulmonic Valve The pulmonic valve was not well visualized. Tricuspid Valve The tricuspid valve was not well visualized. Tricuspid regurgitation envelope is inadequate for calculation of right ventricular systolic pressure. Normal right atrial pressure. Great Vessels The aorta was not well visualized. The pulmonary artery was not well visualized. Venous The inferior vena cava is normal in size and collapses greater than 50% with inspiration. Pericardium/Pleural The pericardium was not well visualized. Prior Study Comparison No significant change compared to prior study dated: 02/04/2023. Measurements 2D Linear Measurements IVSd: 0.97 0.6-0.9/0.6-1.0 cm LVIDd: 4.92 3.9-5.3/4.2-5.9 cm LVIDd Index: 2.46 2.4-3.2/2.2-3.1 cm/m2 LVIDs: 3.94 2.0-3.6 cm LVPWd: 0.65 0.7-1.1 cm LA Diam: 4.00 2.7-3.8/3.0-4.0 cm LAIDs Index: 2.00 1.5-2.3 cm/m2 LV Mass: 167.72 67-162/88-224 g LV Mass Index: 83.86 43-95/49-115 g/m2 LVOT Diam: 2.20 3.0+(-)1.3 cm Mitral Valve MV Pk E: 0.46 MV PK A: 0.54 MV Decel Time: 181.00 E/A: 0.80 E'Lateral: 8.38 E'Medial: 5.98 E/E' Med: 7.70 E/E' Lat: 5.50 PHT: 53.00 MVA PHT: 4.15 Decel [place]: 2.54 Aortic Valve AoV Pk Joel: 1.26 AoV Mn Joel: 0.89 AoV VTI: 0.22 AoV Pk Grad: 6.00 Aov Mn Grad: 4.00 NAY Cont.VTI: 3.19 LVOT LVOT Pk Joel: 1.10 LVOT Mn Joel: 0.74 LVOT VTI: 0.19 LVOT Pk Grad: 5.00 LVOT Mn Grad: 3.00 LVOT Diam: 2.20 LVOT Area: 3.80 Diastolic Function MV Pk E: 0.46 MV Pk A: 0.54 E/A: 0.80 E'Medial: 5.98 E/E' Med: 7.70 E' Laterial: 8.38 E/E' Lat: 5.50 Right Ventricle TAPSE (mm): 15.40 TVS' Joel: 8.92 Tricuspid Valve RA Press: 3.00 Great Vessels Aorta Sinus of Valsalva: 3.13 2.0-3.5 cm Ao Asc: 3.40 2.1-3.4 cm Pulmonary Veins Pulm Vein S/D 1.10 Updated in Other Vendor System with Status of Final Keagan Negro MD electronically signed on 07/19/2025 4:24:45 PM with status of Final
--- OUTSIDE RECORDS SUMMARY | 2025-07-19 16:39 | XMS_ITS | Clinical Summary ---
Author Organization [facility] Facility Address [address] [address] Care Team Providers Care Learning Developer Name Role Phone Osmel Mcclure MD Primary Care Provider [phone] Social History Tobacco Use Types Packs/Day Years [...] Sigmoidoscopy 01/12/2021 Influenza Vaccine (#1) 2025 Insurance [employer] Care Teams Learning Developer Relationship Specialty Start Date End Date Osmel Mcclure MD [address] [place], [place] PCP - General Internal Medicine 02/04/23
--- OUTSIDE RECORDS SUMMARY | 2025-07-19 16:39 | XMS_ITS | Clinical Summary ---
Author Organization [employer] Address [address] [facility] [address] [place] [address] Care Team Providers Care Joint Creaser Name Role Phone Unavailable Primary Care Provider [...] Most Recently Relevant to Health Maintenance [facility]
--- OUTSIDE RECORDS SUMMARY | 2025-07-19 16:39 | XMS_ITS | Clinical Summary ---
Author Organization 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 [...] EDT) SODIUM 134 133 - 146 mmol/L [facility] POTASSIUM 3.8 3.3 - 5.1 mmol/L [facility] CHLORIDE 91(L) 96 - 108 mmol/L [facility] CO2 31 21 - 35 mmol/L [facility] BUN 16 6 - 19 mg/dL [facility] CREATININE 0.80 0.5 - 1.5 mg/dL [facility] GLUCOSE 116(H) 70 - 99 mg/dL [facility] ALBUMIN 3.9 3.9 - 4.8 g/dL [facility] TOTAL PROTEIN 6.7 6.5 - 8.0 g/dL [facility] CALCIUM 9.2 8.4 - 10.3 mg/dL [facility] ALKALINE PHOSPHATASE 89 39 - 117 U/L [facility] TOTAL BILIRUBIN 0.4 0.0 - 1.2 mg/dL [facility] AST 38(H) 0 - 37 U/L [facility] ALT 29 0 - 40 U/L [facility] GLOBULIN 2.8 1 - 4.8 g/dL [facility] EGFR 107 >59 mL/min/1.7 3m2 [facility] Comment:If patient is black, multiply result by 1.159. Estimated glomerular filtration rate calculated using the CKD-EPI equation. ANION GAP 16 10 - 20 mmol/L [facility] Blood 03/12/2018 3:36 PM EDT 03/12/2018 6:46 PM EDT Estefany Restrepo PROPERTY CUSTODIAN LAB BLOOD BKR ORDERABLES F inal Result Performing Organization Address City/[facility]/ZIP Co de Phone Number [address] [address] * (ABNORMAL) TSH (03/12/2018 3:36 PM EDT) TSH 36.96(H) 0.27 - 4.20 uIU/mL [facility] Blood 03/12/2018 3:36 PM EDT 03/12/2018 6:46 PM EDT Estefany Restrepo [employer]ERTY CUST[employer] LAB BLOOD BKR ORDERABLES F inal Result [address] [address] * (ABNORMAL) Lipid panel (03/12/2018 3:36 PM EDT) HDL 47 mg/dL [facility] Comment: Interpretation: Risk Level Males Decreased >45 mg/dL Average 40-45 mg/dL Increased <40 mg/dL CHOLESTEROL 303(H) 0 - 240 mg/dL [facility] TRIGLYCERIDES 1,283(H) 30 - 160 mg/dL [facility] LDL NOT CALCULATED 50 - 129 mg/dL [facility] Comment: Unable to calculate due to elevated TRIG of greater than 400. A measured LDL will be performed. CARDIAC RISK RATIO 6.4(H) 3.4 - 5.0 [facility] Blood 03/12/2018 3:36 PM EDT 03/12/2018 6:46 PM EDT us Estefany Restrepo [employer] CUST[employer] LAB BLOOD BKR ORDERABLES F inal Result [facility] [address] [place] [address] from Last 3 Months or Most Recently Relevant to Health Maintenance [place] [address] [place] [address] NON NSPG PCP [facility] [employer] NON NSPG PCP [employer] [employer] NON NSPG PCP [facility] [employer] NON NSPG PCP [employer] [facility] [employer] NON NSPG PCP [employer] [employer] NON NSPG PCP [employer] [employer] NON NSPG PCP [employer] NON NSPG PCP S[employer] NON NSPG PCP [employer] [employer] Care Teams Html Web Developer Relationship Specialty Start Date End Date Unknown, Unknown, PCP - General 12/10/21 Additional Source Comments The information contained in this document represents components of the legal health record. It is not the complete legal health record.[facility]
== END ==
LOC: HO.CARD 14:53
DX: R07.89 Other chest pain (principal); I10 Essential (primary) hypertension; Z86.79 Personal history of other diseases of the circulatory system
CPT/HCPCS: 93306; Q9957

== ENCOUNTER → 2025-07-19 14:56 | Outpatient (BNV) | payer OTHER, SELFPAY | PROVIDERS: Visit Provider Internal Medicine Cardiovascular Disease | DX: Z86.79 Personal history of other diseases of the circulatory system (principal) | CPT/HCPCS: 93306 ==

== ENCOUNTER 2025-07-20 14:51 | Outpatient (AMB) | payer OTHER, SELFPAY ==
[2025-07-20 15:01] VITALS: BP 122/80; PULSE 86; RESP 18; TEMP 36.3; O2SAT 98; BMI 28.3
--- NOTE | 2025-07-20 15:01 | MHC.PC.OV ---
Vital Signs 07/20/25 15:01 07/20/25 15:34 Height 5 ft 8 in Weight 186 lb 4 oz BMI 28.3 BP 122/80 98/56 L Blood Pressure Location Lt brachial Rt brachial Position Sitting Sitting Respiration 18 Pulse 86 Pulse Source Pulse Oximeter Temp 97.3 F Temp Source Temporal Artery Scan Pulse Oximetry (%) 98 Oxygen Delivery Method Room Air Intake Visit Reasons: htn/hypothryoidism/gout/major depression Benefits Sales Consultant Required: No Accompanied by: Self / Same As Patient Allergies Seasonal Allergies Allergy (Mild, Verified 07/21/25 08:13) Unknown No Known Drug Allergies Allergy (Unknown, Verified 07/21/25 08:13) none Fruit skins Allergy (Unknown, Uncoded 07/21/25 08:13) Unknown Medication List - Last Reconciled 07/21/25 by BRIAN Bailey albuterol sulfate 90 mcg/actuation (Ventolin HFA) 2 puffs PO Q4-6H PRN allopurinol 300 mg PO DAILY azithromycin For 250 mg dose pack: take 500 mg today (day 1), then 250 mg for 4 days (days 2-5) PO clonazepam 1 mg PO BID-TID 10 days fenofibrate 160 mg PO DAILY fluoxetine 40 mg PO DAILY fluticasone propionate 50 mcg/actuation 1 spray intranasal DAILY ibuprofen 800 mg PO TID PRN levothyroxine 125 mcg PO DAILY@0600 lisinopril 10 mg PO DAILY loratadine (Claritin) 10 mg PO DAILY PRN multivitamin 1 tab PO DAILY nystatin 3 appl topical QID omeprazole 20 mg PO DAILY potassium chloride ER (Klor-Con M) 20 mEq PO DAILY Held on 07/20/25. Instructions: Doctor's Order prednisone 10 mg PO DIRECTED quetiapine 100 mg PO BEDTIME sennosides (senna) 8.6 mg PO BEDTIME simvastatin 40 mg PO DAILY thiamine HCl (vitamin B1) 500 mg PO DAILY tiotropium bromide 2.5 mcg/actuation (Spiriva Respimat) 2 puffs inhalation DAILY trazodone 100 mg PO BEDTIME PRN Tobacco use date assessed: 07/20/25 Dental Screening Dental Screen Date: 07/20/25 Did you have a dental visit in the last 12 months?: No Did you have a dental problem in the last 6 months where you did not have access to dental care?: No Was dental information given to patient?: Patient has dentist HPI htn/hypothryoidism/gout/major depression HPI Details The patient is a 55-year-old male presenting for htn, hypothyroidism, gout, major depression He reports having an echocardiogram yesterday where a contrast dye was injected into his right arm to improve visualization of the heart. His blood pressure was noted to be significantly lower in his right arm. The patient also admitting iv drug use in both arms in the past, reports that he he quit about 5 years ago. Right arm bp 98/56 mmHg during the visit, while the left arm reading was noted to be normal. The patient also reports experiencing intermittent heart flutters that are brief, lasting seconds to a minute, and resolve spontaneously. He has a history of anxiety for which he is on clonazepam 1 mg BID-TID. His past medical history is significant for chronic bronchitis, which occurs three to four times a year. He has a history of a thyroid condition, for which he previously took medication but stopped, and he reports feeling very tired in the past due to this. The patient has a history of IV drug use for five years but states he quit. The patient admits to inadequate water intake, consuming approximately 16 ounces per day, but does drink beer. He notes he has run out of his multivitamin with iron and needs a refill. [facility] Medical History Physical exam Alcohol use disorder Mood disorder Substance use disorder Hypothyroidism Hypertension Obesity Surgical History No pertinent past surgical history Family History Father No problems noted. Mother No problems noted. Social History Household Members: None Housing: Apartment Do you presently have visiting nurse or other home services: No Alcohol intake: current Alcohol intake frequency: a few times a week Patient Tobacco Use Status: Former Tobacco user Years Smoked: 8 years e-Cigarette/Vaping Use: Never Used Second Hand Smoke Exposure: Yes service: No Current occupational status: employed Current occupational exposures/hazards: No Cognitive needs: No Hearing needs: No Vision needs: No Questionnaire Thrive Questionnaire Date Thrive assessed: 09/09/24 I am a: Patient What is your living situation today?: I have a steady place to live Within the past 12 months, did the food you bought not last and you didn't have the money to get more?: Never true Within the past 12 months, did you worry whether your food would run out before you got money to buy more?: Never true Do you have trouble paying for medicines?: No Do you have trouble getting transportation to medical appointments?: Yes Do you have trouble paying your heating and electricity bill?: No Do you have trouble taking care of your child, family member or friend?: No Do you have trouble with day-to-day activities such as bathing, preparing meals, shopping, managing finances, etc.?: Yes Are you currently unemployed and looking for a job?: Yes Are you interested in more education?: No Please select the resources that you would like help with: None Currently or been in a relationship where the following occur: I choose not to answer THRIVE Score: 1 JAMISON-7 AMB Questionnaire JAMISON-7 Date JAMISON - 7 assessed: 09/15/24 Source: Developed by Drs. Hema Crouch, Lou Monreal, Elmer Darnell and colleagues, with an educational tobias from [employer]. Review of Systems Const Denies headache(s) Eyes Denies loss of vision ENT Denies vertigo, Denies dizziness, Denies headache(s) and Denies sore throat Card Reports chest pain (post cpr-describes as muscle cramping), Denies leg edema, Denies lightheadedness and Reports dyspnea on exertion Resp Denies cough, Denies hemoptysis, Reports dyspnea on exertion and Denies wheezing GI Reports abdominal pain (on and off), Denies melena, Denies constipation, Denies diarrhea and Denies vomiting Denies dysuria, Denies urinary frequency and Denies urinary urgency Musc Denies arthralgias, Denies joint swelling, Reports muscle weakness (reports generalized), Denies numbness and Denies tingling Neuro Denies Abnormal speech present, Denies behavioral changes, Denies vertigo, Denies dizziness, Denies headache(s), Denies loss of vision, Reports memory loss (feels like his memory has been fading), Denies numbness and Denies tingling Psych Reports anxiety, Denies behavioral changes, Denies depression, Reports memory loss (feels like his memory has been fading) and Denies panic attacks Sim/Lymph Denies easy bleeding and Denies easy bruising Aller/Immun Denies wheezing Physical exam (Primary Care) Vital Signs: Last Vital Signs Temp 97.3 F 07/20/25 15:01 Pulse 86 07/20/25 15:01 Resp 18 07/20/25 15:01 BP 98/56 L 07/20/25 15:34 Pulse Ox 98 07/20/25 15:01 Oxygen Delivery Method Room Air 07/20/25 15:01 BMI result Body Mass Index 28.3 Tobacco/Smoking Status: Tobacco use Status Tobacco use date assessed 07/20/25 07/20/25 15:14 Patient Tobacco Use Status Former Tobacco user 07/20/25 15:14 e-Cigarette/Vaping Use Never Used 07/20/25 15:14 Thrive Assessment: Date of Thrive Assessment Date Thrive assessed 09/09/24 07/20/25 15:14 Currently or been in a relationship where the following occur: I choose not to answer Const General: healthy appearing, no acute distress, alert and awake Nutritional Appearance: well nourished Orientation/consciousness: oriented to person, oriented to place and oriented to time HENMT Ears: TM's normal bilaterally General nose exam: Abnormal mucous membranes and turbinates present erythematous Eyes Conjunctivae: conjunctivae normal Sclerae: sclerae normal Pupils: Equal, round and reactive pupils present Neck Neck: Yes no lymphadenopathy and Yes no JVD Thyroid: Thyroid normal Carotids: no bruits Resp Effort & Inspection: normal respiratory effort and not tachypneic Auscultation: no crackles, no rales, no rhonchi and no wheezes Cardio Rate: regular rate Rhythm: regular rhythm Heart sounds: S2 normal heart sound present, no murmurs and normal S1 and S2 GI Inspection: Yes obesity Palpation (GI): Soft to palpation, nontender, no hepatomegaly and no splenomegaly Auscultation: normal bowel sounds Skin General skin exam: no rashes or lesions noted and dry skin Neuro General: oriented to person, oriented to place and oriented to time Cranial nerves: Yes Equal, round and reactive pupils present Speech: No Abnormal speech present Gait exam (Neuro): Normal gait present Motor exam (neuro): no tremor noted Extrem Right upper extremity: full ROM Left upper extremity: full ROM Right lower extremity: full ROM; no edema Left lower extremity: full ROM; no edema Psych Mental Status: mental status grossly normal Speech and movement: Normal speech and movement present Affect: normal affect Attitude: cooperative Thought process: Normal thought process present Results Reviewed Results Reviewed: Laboratory Tests 07/14/25 07/14/25 14:55 15:04 WBC 5.8 RBC 4.26 L Hgb 13.6 L Hct 38.8 L MCV 91.1 MCH 31.9 MCHC 35.1 RDW 11.8 Plt Count 270 Sodium 130 L Potassium 4.5 D Chloride 92 L Carbon Dioxide 29 Anion Gap 14 BUN 18 H Creatinine 1.32 Estimated GFR 57 Fasting Glucose 99 Uric Acid 3.7 Calcium 9.4 Magnesium 1.5 L Total Bilirubin 0.7 AST 34 ALT 20 Alkaline Phosphatase 34 L Total Protein 7.4 Albumin 4.6 Triglycerides 83 Cholesterol 164 LDL Cholesterol, Calc 82 HDL Cholesterol 66 Vitamin B12 365 25-OH Vitamin D Total 30.2 Folate 11.7 TSH 0.58 Urine Color Dark Yellow Urine Appearance Cloudy Urine pH 6.5 Ur Specific [place] 1.020 Urine Protein 30 (1+) H Urine Glucose (UA) Negative Urine Ketones Negative Urine Blood Negative Urine Nitrite Negative Ur Leukocyte Esterase Trace H Urine RBC 0-2 Urine WBC 0-5 Ur Squamous Epith Cells 0-2 Other Crystals Present Urine Bacteria None Seen Hyaline Casts 3-5 Coding Level of Care Code Est Pt Level 4 (21110) Diagnoses Mood disorder F39 Anxiety F41.9 Major depressive disorder, remission status unspecified, unspecified whether recurrent F32.9 Active/Remission status: remission status unspecified Major depression recurrence: unspecified whether recurrent Alcoholism F10.20 Substance use disorder F19.90 Alcohol use disorder F10.90 Hypertension, unspecified type I10 Hypertension type: unspecified High cholesterol E78.00 History of supraventricular tachycardia Z86.79 Hypothyroidism, unspecified type E03.9 Hypothyroidism type: unspecified Chronic gout without tophus, unspecified cause, unspecified site [id number].[id number] Chronicity: chronic Gout etiology: unspecified cause Gout site: unspecified site Presence of tophus: without tophus Asthma-COPD overlap syndrome J44.9 Time Spent (min) 39 Assessment & Plan Assessment & Plan (1) Mood disorder: Code(s): F39 - Unspecified mood [affective] disorder Category: Medical (2) Anxiety: Code(s): F41.9 - Anxiety disorder, unspecified Category: Medical (3) Major depression: Code(s): F32.9 - Major depressive disorder, single episode, unspecified Category: Medical Qualifiers: Active/Remission status: remission status unspecified Major depression recurrence: unspecified whether recurrent Qualified Code(s): F32.9 - Major depressive disorder, single episode, unspecified (4) Alcoholism: Code(s): F10.20 - Alcohol dependence, uncomplicated Category: Medical (5) Substance use disorder: Code(s): F19.90 - Other psychoactive substance use, unspecified, uncomplicated Category: Medical (6) Alcohol use disorder: Code(s): F10.90 - Alcohol use, unspecified, uncomplicated Category: Medical (7) Hypertension: Code(s): I10 - Essential (primary) hypertension Category: Medical Qualifiers: Hypertension type: unspecified Qualified Code(s): I10 - Essential (primary) hypertension (8) High cholesterol: Code(s): E78.00 - Pure hypercholesterolemia, unspecified Category: Medical (9) History of supraventricular tachycardia: Code(s): Z86.79 - Personal history of other diseases of the circulatory system Category: Medical (10) Hypothyroidism: Code(s): E03.9 - Hypothyroidism, unspecified Category: Medical Qualifiers: Hypothyroidism type: unspecified Qualified Code(s): E03.9 - Hypothyroidism, unspecified (11) Gout: Code(s): M10.9 - Gout, unspecified Category: Medical Qualifiers: Chronicity: chronic Gout etiology: unspecified cause Gout site: unspecified site Presence of tophus: without tophus Qualified Code(s): M1A.9XX0 - Chronic gout, unspecified, without tophus (tophi) (12) Asthma-COPD overlap syndrome: Code(s): J44.9 - Chronic obstructive pulmonary disease, unspecified Category: Medical Plan The patient will undergo blood work to assess current potassium and sodium levels, given the history of hypokalemia and hyponatremia. An echocardiogram was ordered to due recent CPR AND HX of [facility]. Echo completed on 07/19/2025 shows normal LV ejection fraction of 60-65% with grade 1 diastolic dysfunction. The patient is advised to avoid alcohol and benzodiazepine use concurrently due to the risk of respiratory depression. Referral to a youth services specialist and conference concierge were placed. The patient is encouraged to continue using Claritin and Flonase for allergic rhinitis and to consider seeing an cap cutter for further evaluation. Recurrent sinus infection. Z-Konrad and prednisone taper ordered Patient to continue allopurinol 300 mg daily. Uric acid within normal limits. The patient she will continue his Seroquel 100 mg at bedtime, fluoxetine 40 mg daily, and clonazepam 1 mg TID, and should follow up with Psychiatry as scheduled. The patient should continue lisinopril 10 mg daily, simvastatin 40 mg daily, levothyroxine 125 mcg daily, etc,. He should continue with all schedule medication until he repeats his labs to further evaluated. Encouraged to get this done as soon as possible. Cholesterol within normal levels continue simvastatin 40 mg daily Euthyroidism-continue levothyroxine 125 mcg daily Patient was informed and verbally consented to the use of an ambient scribe for clinic note documentation during this visit. Orders: Orders Complete Blood Count Auto Diff 3 Months F32.A - Depression, unspecified, F39 - Unspecified mood [affective] disorder, F32.9 - Major depressive disorder, single episode, unspecified, F10.20 - Alcohol dependence, uncomplicated, F19.90 - Other psychoactive substance use, unspecified, uncomplicated, F11.90 - Opioid use, unspecified, uncomplicated, I10 - Essential (primary) hypertension, E78.00 - Pure hypercholesterolemia, unspecified, E03.9 - Hypothyroidism, unspecified, R13.12 - Dysphagia, oropharyngeal phase, E87.6 - Hypokalemia, M1A.9XX0 - Chronic gout, unspecified, without tophus (tophi), M62.82 - Rhabdomyolysis, J44.9 - Chronic obstructive pulmonary disease, unspecified, R06.02 - Shortness of breath Lipid Panel 3 Months F32.A - Depression, unspecified, F39 - Unspecified mood [affective] disorder, F32.9 - Major depressive disorder, single episode, unspecified, F10.20 - Alcohol dependence, uncomplicated, F19.90 - Other psychoactive substance use, unspecified, uncomplicated, F11.90 - Opioid use, unspecified, uncomplicated, I10 - Essential (primary) hypertension, E78.00 - Pure hypercholesterolemia, unspecified, E03.9 - Hypothyroidism, unspecified, R13.12 - Dysphagia, oropharyngeal phase, E87.6 - Hypokalemia, M1A.9XX0 - Chronic gout, unspecified, without tophus (tophi), M62.82 - Rhabdomyolysis, J44.9 - Chronic obstructive pulmonary disease, unspecified, R06.02 - Shortness of breath IRON PROFILE 3 Months F32.A - Depression, unspecified, F39 - Unspecified mood [affective] disorder, F32.9 - Major depressive disorder, single episode, unspecified, F10.20 - Alcohol dependence, uncomplicated, F19.90 - Other psychoactive substance use, unspecified, uncomplicated, F11.90 - Opioid use, unspecified, uncomplicated, I10 - Essential (primary) hypertension, E78.00 - Pure hypercholesterolemia, unspecified, E03.9 - Hypothyroidism, unspecified, R13.12 - Dysphagia, oropharyngeal phase, E87.6 - Hypokalemia, M1A.9XX0 - Chronic gout, unspecified, without tophus (tophi), M62.82 - Rhabdomyolysis, J44.9 - Chronic obstructive pulmonary disease, unspecified, R06.02 - Shortness of breath Vitamin B12 and Folate 3 Months F32.A - Depression, unspecified, F39 - Unspecified mood [affective] disorder, F32.9 - Major depressive disorder, single episode, unspecified, F10.20 - Alcohol dependence, uncomplicated, F19.90 - Other psychoactive substance use, unspecified, uncomplicated, F11.90 - Opioid use, unspecified, uncomplicated, I10 - Essential (primary) hypertension, E78.00 - Pure hypercholesterolemia, unspecified, E03.9 - Hypothyroidism, unspecified, R13.12 - Dysphagia, oropharyngeal phase, E87.6 - Hypokalemia, M1A.9XX0 - Chronic gout, unspecified, without tophus (tophi), M62.82 - Rhabdomyolysis, J44.9 - Chronic obstructive pulmonary disease, unspecified, R06.02 - Shortness of breath Uric Acid 3 Months F32.A - Depression, unspecified, F39 - Unspecified mood [affective] disorder, F32.9 - Major depressive disorder, single episode, unspecified, F10.20 - Alcohol dependence, uncomplicated, F19.90 - Other psychoactive substance use, unspecified, uncomplicated, F11.90 - Opioid use, unspecified, uncomplicated, I10 - Essential (primary) hypertension, E78.00 - Pure hypercholesterolemia, unspecified, E03.9 - Hypothyroidism, unspecified, R13.12 - Dysphagia, oropharyngeal phase, E87.6 - Hypokalemia, M1A.9XX0 - Chronic gout, unspecified, without tophus (tophi), M62.82 - Rhabdomyolysis, J44.9 - Chronic obstructive pulmonary disease, unspecified, R06.02 - Shortness of breath TSH reflex Free T4 3 Months F32.A - Depression, unspecified, F39 - Unspecified mood [affective] disorder, F32.9 - Major depressive disorder, single episode, unspecified, F10.20 - Alcohol dependence, uncomplicated, F19.90 - Other psychoactive substance use, unspecified, uncomplicated, F11.90 - Opioid use, unspecified, uncomplicated, I10 - Essential (primary) hypertension, E78.00 - Pure hypercholesterolemia, unspecified, E03.9 - Hypothyroidism, unspecified, R13.12 - Dysphagia, oropharyngeal phase, E87.6 - Hypokalemia, M1A.9XX0 - Chronic gout, unspecified, without tophus (tophi), M62.82 - Rhabdomyolysis, J44.9 - Chronic obstructive pulmonary disease, unspecified, R06.02 - Shortness of breath Comprehensive [place]. Panel Fast 3 Months F32.A - Depression, unspecified, F39 - Unspecified mood [affective] disorder, F32.9 - Major depressive disorder, single episode, unspecified, F10.20 - Alcohol dependence, uncomplicated, F19.90 - Other psychoactive substance use, unspecified, uncomplicated, F11.90 - Opioid use, unspecified, uncomplicated, I10 - Essential (primary) hypertension, E78.00 - Pure hypercholesterolemia, unspecified, E03.9 - Hypothyroidism, unspecified, R13.12 - Dysphagia, oropharyngeal phase, E87.6 - Hypokalemia, M1A.9XX0 - Chronic gout, unspecified, without tophus (tophi), M62.82 - Rhabdomyolysis, J44.9 - Chronic obstructive pulmonary disease, unspecified, R06.02 - Shortness of breath Vitamin D 25-OH Total 3 Months F32.A - Depression, unspecified, F39 - Unspecified mood [affective] disorder, F32.9 - Major depressive disorder, single episode, unspecified, F10.20 - Alcohol dependence, uncomplicated, F19.90 - Other psychoactive substance use, unspecified, uncomplicated, F11.90 - Opioid use, unspecified, uncomplicated, I10 - Essential (primary) hypertension, E78.00 - Pure hypercholesterolemia, unspecified, E03.9 - Hypothyroidism, unspecified, R13.12 - Dysphagia, oropharyngeal phase, E87.6 - Hypokalemia, M1A.9XX0 - Chronic gout, unspecified, without tophus (tophi), M62.82 - Rhabdomyolysis, J44.9 - Chronic obstructive pulmonary disease, unspecified, R06.02 - Shortness of breath UA CC w/rflx Micro + Cult 3 Months F32.A - Depression, unspecified, F39 - Unspecified mood [affective] disorder, F32.9 - Major depressive disorder, single episode, unspecified, F10.20 - Alcohol dependence, uncomplicated, F19.90 - Other psychoactive substance use, unspecified, uncomplicated, F11.90 - Opioid use, unspecified, uncomplicated, I10 - Essential (primary) hypertension, E78.00 - Pure hypercholesterolemia, unspecified, E03.9 - Hypothyroidism, unspecified, R13.12 - Dysphagia, oropharyngeal phase, E87.6 - Hypokalemia, M1A.9XX0 - Chronic gout, unspecified, without tophus (tophi), M62.82 - Rhabdomyolysis, J44.9 - Chronic obstructive pulmonary disease, unspecified, R06.02 - Shortness of breath Medications: New prednisone see taper instructions take 4 tabs x 2 days, then 3 tabs x 2 days, then 2 tabs x2 days, then 1 tab x 2 days =20 tabs for 8 days 10 mg PO DIRECTED 20 tabs 0RF azithromycin For 250 mg dose pack: take 500 mg today (day 1), then 250 mg for 4 days (days 2-5) PO 6 tabs 0RF Changed From tiotropium bromide 2.5 mcg/actuation 2 puffs inhalation DAILY 4 grams 7RF To tiotropium bromide 2.5 mcg/actuation (Spiriva Respimat) 2 puffs inhalation DAILY 4 grams 7RF Refilled quetiapine 100 mg PO BEDTIME 90 tabs 2RF sennosides (senna) 8.6 mg PO BEDTIME 90 tabs 3RF simvastatin 40 mg PO DAILY 90 tabs 3RF multivitamin 1 tab PO DAILY 90 tabs 3RF lisinopril 10 mg PO DAILY 90 tabs 3RF omeprazole 20 mg PO DAILY 90 caps 3RF allopurinol 300 mg PO DAILY 90 tabs 3RF thiamine HCl (vitamin B1) 500 mg PO DAILY 90 tabs 3RF trazodone 100 mg PO BEDTIME PRN 90 tabs 3RF sleep fluticasone propionate 50 mcg/actuation administer into each nostril 1 spray intranasal DAILY 9.9 mL 2RF On Hold potassium chloride ER (Klor-Con M) Hold Comment: Doctor's Order 20 mEq PO DAILY 30 tabs 3RF
[2025-07-20 15:34] VITALS: BP 98/56
--- OUTSIDE RECORDS SUMMARY | 2025-07-20 18:16 | XMS_ITS | Clinical Summary ---
Author Organization [facility] Address [address] [address] Phone Care Team Providers Care Strap Sewer Name Role Phone Unknown, Unknown Primary Care [...] Active WAL-ITIN D 12 HOUR 5-120 mg [id number]:Ch ronic allergic rhinitis due to animal hair [...] patient's age to complete this topic IPV VACCINES Aged Out No longer eligi ble [...] EDT) SODIUM 134 133 - 146 mmol/L [facility] POTASSIUM 3.8 3.3 - 5.1 mmol/L [facility] CHLORIDE 91(L) 96 - 108 mmol/L [facility] CO2 31 21 - 35 mmol/L [facility] BUN 16 6 - 19 mg/dL [facility] CREATININE 0.80 0.5 - 1.5 mg/dL [facility] GLUCOSE 116(H) 70 - 99 mg/dL [facility] ALBUMIN 3.9 3.9 - 4.8 g/dL [facility] TOTAL PROTEIN 6.7 6.5 - 8.0 g/dL [facility] CALCIUM 9.2 8.4 - 10.3 mg/dL [facility] ALKALINE PHOSPHATASE 89 39 - 117 U/L [facility] TOTAL BILIRUBIN 0.4 0.0 - 1.2 mg/dL [facility] AST 38(H) 0 - 37 U/L [facility] ALT 29 0 - 40 U/L [facility] GLOBULIN 2.8 1 - 4.8 g/dL [facility] EGFR 107 >59 mL/min/1.7 3m2 [facility] Comment:If patient is black, multiply result by 1.159. Estimated glomerular filtration rate calculated using the CKD-EPI equation. ANION GAP 16 10 - 20 mmol/L [facility] Blood 03/12/2018 3:36 PM EDT 03/12/2018 6:46 PM EDT Estefany Restrepo RETORT ENGINEER LAB BLOOD BKR ORDERABLES F inal Result [address] [address] * (ABNORMAL) TSH (03/12/2018 3:36 PM EDT) TSH 36.96(H) 0.27 - 4.20 uIU/mL [facility] Blood 03/12/2018 3:36 PM EDT 03/12/2018 6:46 PM EDT Estefany Restrepo RETORT ENGINEER LAB BLOOD BKR ORDERABLES F inal Result [address] [address] * (ABNORMAL) Lipid panel (03/12/2018 3:36 PM EDT) HDL 47 mg/dL [facility] Comment: Interpretation: Risk Level Males Decreased >45 mg/dL Average 40-45 mg/dL Increased <40 mg/dL CHOLESTEROL 303(H) 0 - 240 mg/dL [facility] TRIGLYCERIDES 1,283(H) 30 - 160 mg/dL [facility] LDL NOT CALCULATED 50 - 129 mg/dL [facility] Comment: Unable to calculate due to elevated TRIG of greater than 400. A measured LDL will be performed. CARDIAC RISK RATIO 6.4(H) 3.4 - 5.0 [facility] Blood 03/12/2018 3:36 PM EDT 03/12/2018 6:46 PM EDT us Estefany Restrepo RETORT ENGINEER LAB BLOOD BKR ORDERABLES F inal Result [facility] [address] [place] [address] from Last 3 Months or Most Recently Relevant to Health Maintenance [facility] NON NSPG PCP [facility] [facility] NON NSPG PCP [employer] NON NSPG PCP S[employer] NON NSPG PCP [place] NON NSPG PCP [employer] NON NSPG PCP [place] NON NSPG PCP [employer] NON NSPG PCP [employer] NON NSPG PCP [place] [facility] Care Teams Strap Sewer Relationship Specialty Start Date End Date Unknown, Unknown, PCP - General 12/10/21 Additional Source Comments The information contained in this document represents components of the legal health record. It is not the complete legal health record.[facility]
--- OUTSIDE RECORDS SUMMARY | 2025-07-20 18:16 | XMS_ITS | Clinical Summary ---
Author Organization [employer] Address [address] [facility] [address] [place] [address] Care Team Providers Care School Janitor Name Role Phone Unavailable Primary Care Provider [...] Most Recently Relevant to Health Maintenance Insurance [facility] MEDICAID STAND ADULT
--- OUTSIDE RECORDS SUMMARY | 2025-07-20 18:16 | XMS_ITS | Clinical Summary ---
Author Organization [facility] Facility Address [address] [address] Care Team Providers Care Hat Copyist Name Role Phone Osmel Mcclure MD Primary Care Provider [phone] Social History Tobacco Use Types Packs/Day Years [...] Sigmoidoscopy 01/12/2021 Influenza Vaccine (#1) 2025 Insurance [facility] Healthnet [facility] Healthnet Care Teams Hat Copyist Relationship Specialty Start Date End Date Osmel Mcclure MD [address] [place], [place] PCP - General Internal Medicine 02/04/23
== END 2025-07-20 16:12 | disposition home or self-care (01) ==
LOC: HO.HMCH 14:52
DX: F39 Unspecified mood [affective] disorder (principal); F41.9 Anxiety disorder, unspecified; F32.9 Major depressive disorder, single episode, unspecified; E03.9 Hypothyroidism, unspecified; F10.20 Alcohol dependence, uncomplicated; F19.90 Other psychoactive substance use, unspecified, uncomplicated; F10.90 Alcohol use, unspecified, uncomplicated; I10 Essential (primary) hypertension; E78.00 Pure hypercholesterolemia, unspecified; Z86.79 Personal history of other diseases of the circulatory system; M1A.9XX0 Chronic gout, unspecified, without tophus (tophi); J44.9 Chronic obstructive pulmonary disease, unspecified

== ENCOUNTER → 2025-07-20 14:51 | Outpatient (BNVA) | payer OTHER, SELFPAY | DX: I10 Essential (primary) hypertension (principal); J42 Unspecified chronic bronchitis; F41.9 Anxiety disorder, unspecified; F32.9 Major depressive disorder, single episode, unspecified; F10.20 Alcohol dependence, uncomplicated; F19.90 Other psychoactive substance use, unspecified, uncomplicated; E78.00 Pure hypercholesterolemia, unspecified; E03.9 Hypothyroidism, unspecified; M1A.9XX0 Chronic gout, unspecified, without tophus (tophi); Z86.79 Personal history of other diseases of the circulatory system; Z79.899 Other long term (current) drug therapy | CPT/HCPCS: 99212 ==